=== PATIENT | male | born 1930 | race Caucasian/White ===

== ENCOUNTER → 2016-06-01 | Outpatient (CLI) | payer OTHER ==
--- NOTE | 2016-06-01 13:52 | DX ---
Chest, Two Views at 1244 hours History: Former smoker, right lower lobe pneumonia Comparison: August 2015 Findings: Cardiac silhouette is mildly enlarged. AICD pacemaker noted without pneumothorax. Interstit ial scarring noted throughout both lungs with new infiltrates identified bilateral lower lobes sugges ting bilateral lower lobe pneumonia. No pleural effusion. Impression: 1. Bilateral lower lobe pneumonia. 2. Interstitial lung disease. 3. Consider screening CT chest imaging.
== END ==
LOC: BMCIMAGING 12:47
PROVIDERS: ATTEND Internal Medicine
DX: N15.9 Renal tubulo-interstitial disease, unspecified (principal); J98.4 Other disorders of lung; Z87.891 Personal history of nicotine dependence

== ENCOUNTER → 2016-06-05 | Outpatient (CLI) | payer OTHER ==
[~2016-06-05] MED LIST: IOPAMIDOL (ISOVUE-300) 100 ML BTL IV ONE
== END ==
LOC: FIMAGING 10:18
PROVIDERS: ATTEND Internal Medicine
DX: J18.1 Lobar pneumonia, unspecified organism (principal); I70.0 Atherosclerosis of aorta
CPT/HCPCS: 71260; Q9967

== ENCOUNTER 2016-06-08 12:30 | Inpatient (IN) | payer OTHER ==
[2016-06-08] MEDS ORDERED: NS 1,000 ML BAG *FOR SEPSIS ORDER SET ONLY IV ONE (12:36)
--- NOTE | 2016-06-08 12:42 | EDPHY ---
H & P Time Seen by Provider: 06/08/16 12:30 HPI/ROS: CHIEF COMPLAINT: Pneumonia HISTORY OF PRESENT ILLNESS: Patient is an 85-year-old man sent from the [facility] by Dr. Aretha Ruiz. She had been treating it outpatient for pneumonia on day 7 of . He presented to the office today however hypoxic. On 4 L he was saturating 86% when EMS arrived. Previously had only 1 oxygen at night for history of COPD. He did have a chest x-ray last week that showed bilateral infiltrates and a CT scan done 3 days ago that showed a right lower lobe infiltrate, interstitial lung disease and emphysematous changes. He has also been treated with albuterol but not steroids. He does have a history of atrial fibrillation status post ablation and pacemaker/defibrillator placement and takes Coumadin as well. He denies any chest pain. He states that he feels weak and short of breath. He was hypotensive for EMS initially but improved with a 500 cc bolus. REVIEW OF SYSTEMS: Constitutional: denies: chills, fever, recent illness, recent injury EENTM: denies: blurred vision, double vision, nose congestion Respiratory: See HPI Cardiac: denies: chest pain, irregular heart rate, lightheadedness, palpitations Gastrointestinal/Abdominal: denies: abdominal pain, diarrhea, nausea, vomiting, blood streaked stools Genitourinary: denies: dysuria, frequency, hematuria, pain Musculoskeletal: denies: joint pain, muscle pain Skin: denies: lesions, rash, jaundice, bruising Neurological: denies: headache, numbness, paresthesia, tingling, dizziness, weakness Hematologic/Lymphatic: denies: blood clots, easy bleeding, easy bruising Immunologic/allergic: denies: HIV/AIDS, transplant EXAM: GENERAL: Well-appearing, well-nourished and in no acute distress. HEAD: Atraumatic, normocephalic. EYES: Pupils equal round and reactive to light, extraocular movements intact, sclera anicteric, conjunctiva are normal. ENT: TMs normal, nares patent, oropharynx clear without exudates. Moist mucous membranes. NECK: Normal range of motion, supple without lymphadenopathy or JVD. LUNGS: Mild right-sided rhonchi, no wheezing HEART: Regular rate and rhythm without murmurs, rubs or gallops. ABDOMEN: Soft, nontender, normoactive bowel sounds. No guarding, no rebound. No masses appreciated. BACK: No CVA tenderness, no spinal tenderness, step-offs or deformities EXTREMITIES: Normal range of motion, no pitting or edema. No clubbing or cyanosis. NEUROLOGICAL: Cranial nerves II through XII grossly intact. Normal speech, normal gait. 5/5 strength, normal movement in all extremities, normal sensation PSYCH: Normal mood, normal affect. SKIN: Warm, dry, normal turgor, no visible rashes or lesions. Source: Patient Exam Limitations: No limitations - Personal History Tetanus Vaccine Date: WITHIN 10 YRS - Medical/Surgical History Hx Asthma: No Hx Chronic Respiratory Disease: No Hx Diabetes: No Hx Cardiac Disease: Yes Hx Renal Disease: No Hx Cirrhosis: No Hx Alcoholism: No Hx HIV/AIDS: No Hx Splenectomy or Spleen Trauma: No Other PMH: afib w/ ablation, defibrillator pacemaker, COPD, cm, htn - Family History Significant Family History: Hypertension - Social History Smoking Status: Former smoker Alcohol Use: Sober Drug Use: None Constitutional: Initial Vital Signs Temperature (C) 37.2 C 06/08/16 12:45 Heart Rate 71 06/08/16 12:45 Respiratory Rate 20 06/08/16 12:45 Blood Pressure 106/60 06/08/16 12:45 O2 Sat (%) 92 06/08/16 12:45 O2 Delivery Mode Non-Rebreather Mask O2 (L/minute) 10 Allergies/Adverse Reactions: Penicillins Allergy (Verified 06/08/16 12:50) Sulfa (Sulfonamide Antibiotics) Allergy (Verified 06/08/16 12:50) HAYFEVER Allergy (Uncoded 03/04/12 15:39) RUNNY NOSE/ITCY,WATERY EYES Home Medications: Medication Instructions Recorded Chlorpheniramine Maleate [Allergy 4 mg PO HS PRN 11/27/14 4-Hour] Desonide 0.05% [Desonide 0.05% 1 amanda TP DAILY PRN 11/27/14 Cream (*)] Fluticasone Nasal [Flonase Nasal 1 sprays [place] PRN PRN 11/27/14 [place]] Furosemide [Lasix 40 MG (*)] 40 mg PO DAILY 11/27/14 Herbals/Supplements -Info Only 1 ea PO DAILY 11/27/14 Levothyroxine [Synthroid 50 mcg 50 mcg PO DAILY06 11/27/14 (*)] Multivitamins W-Minerals [Thera M 1 each PO DAILY 11/27/14 Plus Tablet (*)] [place]-3 Fatty Acids [Fish Oil 1000 1,000 mg PO BID 11/27/14 mg (*)] Pantoprazole Sodium [Protonix 40mg 40 mg PO DAILY 11/27/14 (*)] Spironolactone [Aldactone 25 MG 25 mg PO DAILY 11/27/14 (*)] Warfarin Sodium [Coumadin 2.5MG 1.25 mg PO SUMOTUTHFRSA@16 11/27/14 (*)] Warfarin Sodium [Coumadin 2.5MG 2.5 mg PO WE@16 11/27/14 (*)] Zinc Gluconate [Zinc Chelated 50mg 50 mg PO DAILY8 11/27/14 (*)] Medical Decision Making - Diagnostics Imaging: X-ray: chest x-ray was obtained. I viewed the images myself on the PACS system. My interpretation of the images is: Diffuse pulmonary infiltrates pneumonitis and emphysematous changes. The radiologist interpretation is pending. ED Course/Re-evaluation: The patient meets severe sepsis criteria. He has not improved on 7 days of Levaquin. I will give him the fluid bolus and admit to the hospital service and changed to azithromycin and ceftriaxone according to hospital protocols. He is not hospital-acquired pneumonia. He is doing slightly better on albuterol and has received Solu-Medrol. He is saturating 97% on a non- rebreather. His blood pressure is currently 124/76. 1:45 p.m. I spoke with Susana who accepted the patient for Dr. Osullivan. 2:15 p.m. after speaking with Dr. Osullivan we decided to switch to cefepime. Differential Diagnosis: Partial list of the Differential diagnosis considered include but were not limited to; sepsis, pneumonia, severe sepsis, COPD exacerbation and although unlikely based on the history and physical exam, I also considered acute coronary disease, he pulmonary edema. Critical Care Time: I spent a total of 45 minutes of critical care time in obtaining history, performing a physical exam, bedside monitoring of interventions, collecting and interpreting tests and discussion with consultants but not including time spent performing procedures [and exclusive of the PA's time]. - Data Points Laboratory Results: Laboratory Results 06/08/16 12:35 06/08/16 12:35 06/08/16 06/08/16 06/08/16 13:11 12:35 12:35 WBC RBC Hgb Hct MCV MCH MCHC RDW Plt Count MPV Neut % (Auto) Lymph % (Auto) [place] % (Auto) Eos % (Auto) Baso % (Auto) Nucleat RBC Rel Count Absolute Neuts (auto) Absolute Lymphs (auto) Absolute Monos (auto) Absolute Eos (auto) Absolute Basos (auto) Absolute Nucleated RBC Immature Gran % Immature Gran # PT INR APTT VBG Lactic Acid 3.3 mmol/L H mmol/L (0.7-2.1) Sodium 138 mEq/L mEq/L (134-144) Potassium 4.8 mEq/L mEq/L (3.5-5.2) Chloride 100 mEq/L mEq/L (97-110) Carbon Dioxide 20 mEq/l L mEq/l (22-31) Anion Gap 18 mEq/L H mEq/L (8-16) BUN 44 mg/dL H mg/dL (7-23) Creatinine 1.6 mg/dL H mg/dL (0.7-1.3) Estimated GFR 41 Glucose 147 mg/dL H mg/dL (70-100) Calcium 9.6 mg/dL mg/dL (8.5-10.4) Total Bilirubin 3.5 mg/dL H mg/dL 3.5 mg/dL H mg/dL (0.1-1.4) (0.1-1.4) Conjugated Bilirubin 1.6 mg/dL H mg/dL 1.4 mg/dL H mg/dL (0.0-0.5) (0.0-0.5) Unconjugated Bilirubin 1.9 mg/dL H mg/dL 2.1 mg/dL H mg/dL (0.0-1.1) (0.0-1.1) AST 390 IU/L H IU/L (17-59) ALT 204 IU/L H IU/L (21-72) Alkaline Phosphatase 104 IU/L IU/L (38-126) Total Protein 7.1 g/dL g/dL (6.3-8.2) Albumin 3.8 g/dL g/dL (3.5-5.0) 06/08/16 06/08/16 12:35 12:35 WBC 15.70 10^3/uL H 10^3/uL (3.80-9.50) RBC 5.00 10^6/uL 10^6/uL (4.40-6.38) Hgb 14.7 g/dL g/dL (13.7-17.5) Hct 44.5 % % (40.0-51.0) MCV 89.0 fL fL (81.5-99.8) MCH 29.4 pg pg (27.9-34.1) MCHC 33.0 g/dL g/dL (32.4-36.7) RDW 13.9 % % (11.5-15.2) Plt Count 151 10^3/uL 10^3/uL (150-400) MPV 10.3 fL fL (8.7-11.7) Neut % (Auto) 88.4 % H % (39.3-74.2) Lymph % (Auto) 3.8 % L % (15.0-45.0) [place] % (Auto) 6.8 % % (4.5-13.0) Eos % (Auto) 0.1 % L % (0.6-7.6) Baso % (Auto) 0.1 % L % (0.3-1.7) Nucleat RBC Rel Count 0.0 % % (0.0-0.2) Absolute Neuts (auto) 13.87 10^3/uL H 10^3/uL (1.70-6.50) Absolute Lymphs (auto) 0.60 10^3/uL L 10^3/uL (1.00-3.00) Absolute Monos (auto) 1.07 10^3/uL H 10^3/uL (0.30-0.80) Absolute Eos (auto) 0.02 10^3/uL L 10^3/uL (0.03-0.40) Absolute Basos (auto) 0.02 10^3/uL 10^3/uL (0.02-0.10) Absolute Nucleated RBC 0.00 10^3/uL 10^3/uL (0-0.01) Immature Gran % 0.8 % % (0.0-1.1) Immature Gran # 0.12 10^3/uL H 10^3/uL (0.00-0.10) PT 55.3 SEC H D SEC (12.0-15.0) INR 6.05 H* (0.83-1.16) APTT 54.1 SEC H SEC (23.0-38.0) VBG Lactic Acid Sodium Potassium Chloride Carbon Dioxide Anion Gap BUN Creatinine Estimated GFR Glucose Calcium Total Bilirubin Conjugated Bilirubin Unconjugated Bilirubin AST ALT Alkaline Phosphatase Total Protein Albumin Medications Given: Discontinued Medications Albuterol/Ipratropium (Duoneb) 3 ml IH EDNOW ONE Stop: 06/08/16 12:44 Last Admin: 06/08/16 13:05 Dose: 3 ml Azithromycin 500 mg/ Dextrose 255 mls @ 255 mls/hr IV DAILY SULEMAN PRN Reason: Protocol Stop: 07/08/16 13:59 Last Admin: 06/08/16 14:05 Dose: 255 mls Ceftriaxone Sodium/Dextrose (Rocephin 1 Gm (Premix)) 50 mls @ 100 mls/hr IV DAILY SULEMAN PRN Reason: Protocol Stop: 07/08/16 13:59 Last Admin: 06/08/16 17:49 Dose: Not Given Cefepime HCl 1 gm/ Dextrose 50 mls @ 100 mls/hr IV EDNOW ONE PRN Reason: Protocol Stop: 06/08/16 14:44 Last Admin: 06/08/16 17:48 Dose: Not Given Meropenem 1 gm/ Sodium (Chloride) 100 mls @ 100 mls/hr IV EDNOW ONE Stop: 06/08/16 16:59 Last Admin: 06/08/16 17:05 Dose: 100 mls Methylprednisolone Sodium Succinate (Solu-Medrol) 125 mg IVP EDNOW ONE Stop: 06/08/16 12:44 Last Admin: 06/08/16 13:10 Dose: 125 mg Sodium Chloride (Ns *For Sepsis Order Set Only*) 0 ml IV EDNOW ONE Stop: 06/08/16 12:37 Last Admin: 06/08/16 13:25 Dose: 3,060 ml Departure - Departure Disposition: Home, Routine, Self-Care Clinical Impression: Severe sepsis Pneumonia Qualifiers: Pneumonia type: due to unspecified organism Laterality: bilateral Lung location : lower lobe of lung Qualified Code(s): J18.9 - Pneumonia, unspecified organism Condition: Critical
[2016-06-08] MEDS ORDERED: IPRATROPIUM/ALBUTEROL 3 ML DEYVIAL IH ONE (12:43)
[2016-06-08] MEDS ORDERED: methylPREDNISolone SOD SUCC 125 MG/2 ML VIAL IVP ONE (12:43)
[2016-06-08 13:33] LABS: % IMMATURE GRANULYOCYTES 0.8 % (0.0-1.1); ABSOLUTE IMMATURE GRANULOCYTES 0.12 10^3/uL (0.00-0.10); ADD DIFF? NO; ADD MORPH? NO; ADD SCAN? NO; ATYPICAL LYMPHOCYTE FLAG 0 (0-99); FRAGMENT RBC FLAG 20 (0-99); HEMATOCRIT 44.5 % (40.0-51.0); HEMOGLOBIN 14.7 g/dL (13.7-17.5); LEFT SHIFT FLG 10 (0-99); LIPEMIA HEMOLYSIS FLAG 80 (0-99); MEAN CELL HEMOGLOBIN 29.4 pg (27.9-34.1); MEAN PLATELET VOLUME 10.3 fL (8.7-11.7); PLATELET CLUMPS FLAG 10 (0-99); PLATELET COUNT 151 10^3/uL (150-400); RED CELL DISTRIBUTION WIDTH 13.9 % (11.5-15.2)
[2016-06-08 13:47] LABS: APTT 54.1 SEC (23.0-38.0)
[2016-06-08 13:55] LABS: PROTIME(PATIENT) 55.3 SEC (12.0-15.0)
[2016-06-08 13:59] LABS: INR 6.05 (0.83-1.16)
[2016-06-08] MEDS ORDERED: AZITHROMYCIN IV 500 MG in D5W 250 ML IV SCH (14:00)
[2016-06-08 14:01] LABS: ANION GAP 18 mEq/L (8-16); BILIRUBIN,TOTAL 3.5 mg/dL (0.1-1.4); CALCIUM 9.6 mg/dL (8.5-10.4); CARBON DIOXIDE 20 mEq/l (22-31); CHLORIDE 100 mEq/L (97-110); CREATININE 1.6 mg/dL (0.7-1.3); GLOMERULAR FILTRATION RATE 41; GLUCOSE 147 mg/dL (70-100); POTASSIUM 4.8 mEq/L (3.5-5.2); SODIUM 138 mEq/L (134-144)
[2016-06-08] MEDS ORDERED: CEFEPIME HCL 1 GM in D5W 50 ML IV ONE (14:15)
[2016-06-08 14:24] LABS: LACGHOST ORDER
[2016-06-08] MEDS ORDERED: ONDANSETRON DISINTEGRATING 4 MG TAB PO PRN (14:41)
[2016-06-08] MEDS ORDERED: ONDANSETRON 4 MG/2 ML VIAL IVP PRN (14:41)
[2016-06-08] MEDS ORDERED: TEMAZEPAM 15 MG CAP PO PRN (14:41)
[2016-06-08] MEDS ORDERED: ACETAMINOPHEN 325 MG TAB PO PRN (14:41)
[2016-06-08] MEDS ORDERED: oxyCODONE IR 5 MG TAB PO PRN (14:41)
[2016-06-08 14:46] LABS: BILIRUBIN-CONJUGATED 1.4 mg/dL (0.0-0.5); BILIRUBIN-UNCONJUGATED 2.1 mg/dL (0.0-1.1)
[2016-06-08] MEDS ORDERED: FLUTICASONE NASAL 120 SPRAYS/16 GM MDI EACHNARE PRN (15:15)
[2016-06-08] MEDS ORDERED: DESONIDE 0.05% 15 GM CREAM TP PRN (15:15)
[2016-06-08] MEDS ORDERED: CHLORPHENIRAMINE MALEATE 4 MG TAB PO PRN (15:15)
[2016-06-08 15:52] LABS: ALBUMIN 3.8 g/dL (3.5-5.0); BILIRUBIN,TOTAL 3.5 mg/dL (0.1-1.4); BILIRUBIN-CONJUGATED 1.6 mg/dL (0.0-0.5); BILIRUBIN-UNCONJUGATED 1.9 mg/dL (0.0-1.1); TOTAL PROTEIN 7.1 g/dL (6.3-8.2)
[2016-06-08] MEDS ORDERED: MEROPENEM 1 GM in NS 100 ML IV ONE (16:00)
--- NOTE | 2016-06-08 17:21 | GHP ---
[f rep st] HISTORY AND PHYSICAL DATE OF ADMISSION: 06/08/2016 CHIEF COMPLAINT: Pneumonia. HISTORY OF PRESENT ILLNESS: This is an 85-year-old man who presents having failed Levaquin for outpatient treatment of pneumonia. Symptoms started about 2 weeks ago. He saw his doctor, Dr. Ruiz, about 1 week ago. She ordered an x-ray as well as a CT scan and started him on Levaquin. He started Levaquin 3 days ago, not steroids, and has not felt any better. He has possibly had some subjective fevers at home. He has been coughing productive of mucus with mild blood tinge to it. He has been taking his warfarin as prescribed. He has a history of nonischemic cardiomyopathy with an EF of 40%. He has a history of COPD. He saw Dr. Sneed years ago, but has not needed to see him since. He has never been told that he has interstitial lung disease. He quit smoking in the 70s. He normally uses 2.5 L of oxygen at night. However, he has been going up to 4 or 5 throughout the day with this most recent illness. PAST MEDICAL/SURGICAL HISTORY: 1. COPD. 2. Atrial fibrillation status post ablation. 3. Nonischemic cardiomyopathy. Last EF 40% status post bi-V ICD. 4. Hypertension. 5. Hyperlipidemia. 6. BPH. MEDICATIONS: Please see medication reconciliation. ALLERGIES: Penicillin and sulfa. FAMILY HISTORY: No lung disease in his family. SOCIAL HISTORY: He lives at home with his . He has 1 beer with lunch every day and 1 cocktail. He tells me that he does not get intoxicated. He quit smoking in the . REVIEW OF SYSTEMS: A 10-point review of systems is conducted and is negative, except per HPI. PHYSICAL EXAM: VITAL SIGNS: Blood pressure is 120/72, heart rate 72, respiration rate 20, saturating 98% on 10 L non-rebreather, temperature 37.2. GENERAL: The patient is a pleasant man who appears in respiratory distress, otherwise comfortable. HEENT: Shows him to be normocephalic, atraumatic. He is wearing a non-rebreather. CARDIOVASCULAR: Shows a regular rate and rhythm. He has a 1/6 systolic murmur. PULMONARY: Shows bilateral rhonchi as well as basilar rales. He is in moderate respiratory distress, tachypneic. He is speaking in almost full sentences, however. ABDOMEN: Soft, nontender, nondistended. SKIN: No rash. : No [place]. NEUROLOGIC: Shows him to be alert and oriented x3. He is moving all extremities. PSYCHIATRIC: Shows normal mood and affect. LABS: White count is 15.7. INR is 6.05. Lactate is 3.3. Bilirubin is 3.5. Creatinine is 1.6, BUN is 44, bicarb is 20. IMAGING: Chest x-ray, which I personally reviewed and interpreted, shows bilateral infiltrates mostly in the right base, right upper lobe, as well as left base. He has a biventricular ICD in place. I reviewed his CT scan from 3 days ago. This showed likely interstitial lung disease with superimposed pneumonia. I discussed this with Dr. Rausch. Will admit to the step-down unit. IMPRESSION AND PLAN: This is an 85-year-old man who presents with suspected acute pneumonia on top of underlying lung disease. 1. Pulmonary: I do suspect that he has an acute pneumonia given his white count and significantly worsening symptoms. He has a very concerning CT scan for underlying interstitial lung disease. The etiology of this is unclear. He also has COPD, which has been known for some years. In terms of diagnosis, blood cultures have been ordered. Sputum culture will be sent. I sent in respiratory viral PCR as well as a Legionella antigen. I think it is appropriate to treat him broadly to begin with with meropenem (he has an allergy to penicillin), vancomycin, and doxycycline. Would have low threshold to involve pulmonology. 2. Severe sepsis. He has received appropriate fluid bolus. His lactate is elevated. Will need to repeat this per the sepsis protocol. Will monitor him in the step-down unit. Watch for volume overload given his low ejection fraction. 3. Coagulopathy. He is on warfarin. I suspect this is due to interaction with Levaquin, which he has been on for 3 days. Will hold warfarin for now and monitor this closely. 4. Acute kidney injury. Baseline creatinine is about 1.0. His is 1.6. Will hydrate him as above and follow this closely. 5. Nonischemic cardiomyopathy with EF of about 40%. Will continue his cardiac medications. He has a bi-V ICD in place. He is followed by Dr. Hendricks. 6. Atrial fibrillation status post ablation. He is anticoagulated, as above. 7. Underlying chronic obstructive pulmonary disease. He will receive nebulizer treatments while he is here. 8. Code status: He tells me that he would like to be intubated and would like to be a full code at this point. Nobody has had this discussion with him before. /[id number]/MODL MTDD
[2016-06-08] MEDS ORDERED: VANCOMYCIN HCL/NORMAL SALINE 250 ML IV SCH (18:00)
[2016-06-08] MEDS: methylPREDNISolone SOD SUCC 125 MG/2 ML VIAL IVP SCH (18:07)
[2016-06-08] MEDS: IPRATROPIUM/ALBUTEROL 3 ML DEYVIAL IH SCH ×2 (19:08→20:32)
[2016-06-08] MEDS: DOXYCYCLINE INJ 100 MG in NS 250 ML IV SCH (20:07)
[2016-06-08] MEDS: OMEGA-3 FATTY ACIDS 1,000 MG CAP PO SCH (20:07)
[2016-06-08] MEDS: ZINC GLUCONATE 50 MG TAB PO SCH (20:45)
[2016-06-08 20:54] LABS: COLOR AMBER; LEUKOCYTE ESTERASE,URINE NEGATIVE (NEGATIVE); NITRITE,URINE NEGATIVE (NEGATIVE)
[2016-06-08 21:05] LABS: HYALINE CASTS 25-50 /lpf (0-1); MUCUS TRACE /lpf (NONE-1+)
[2016-06-08] MEDS: MEROPENEM 1 GM in NS 100 ML IV SCH (22:03)
[2016-06-09] MEDS: methylPREDNISolone SOD SUCC 125 MG/2 ML VIAL IVP SCH ×5 (00:05→23:57)
[2016-06-09] MEDS: IPRATROPIUM/ALBUTEROL 3 ML DEYVIAL IH SCH ×2 (04:22→10:33)
[2016-06-09 04:36] LABS: % IMMATURE GRANULYOCYTES 0.4 % (0.0-1.1); ABSOLUTE IMMATURE GRANULOCYTES 0.07 10^3/uL (0.00-0.10); ADD DIFF? NO; ADD MORPH? NO; ADD SCAN? NO; ATYPICAL LYMPHOCYTE FLAG 0 (0-99); FRAGMENT RBC FLAG 0 (0-99); HEMATOCRIT 40.3 % (40.0-51.0); HEMOGLOBIN 13.4 g/dL (13.7-17.5); LEFT SHIFT FLG 0 (0-99); LIPEMIA HEMOLYSIS FLAG 80 (0-99); MEAN CELL HEMOGLOBIN 29.1 pg (27.9-34.1); MEAN CELL HEMOGLOBIN CONCENTR. 33.3 g/dL (32.4-36.7); MEAN CELL VOLUME 87.6 fL (81.5-99.8); MEAN PLATELET VOLUME 10.8 fL (8.7-11.7); PLATELET CLUMPS FLAG 0 (0-99); PLATELET COUNT 111 10^3/uL (150-400); RED CELL DISTRIBUTION WIDTH 13.9 % (11.5-15.2)
[2016-06-09 04:48] LABS: INR 4.89 (0.83-1.16); PROTIME(PATIENT) 46.6 SEC (12.0-15.0)
[2016-06-09 04:54] LABS: ALANINE AMINOTRANSFERASE 176 IU/L (21-72); ALBUMIN 3.4 g/dL (3.5-5.0); ALKALINE PHOSPHATASE 100 IU/L (38-126); ANION GAP 13 mEq/L (8-16); ASPARTATE AMINOTRANSFERASE 255 IU/L (17-59); BILIRUBIN,TOTAL 2.3 mg/dL (0.1-1.4); CALCIUM 8.8 mg/dL (8.5-10.4); CARBON DIOXIDE 20 mEq/l (22-31); CHLORIDE 108 mEq/L (97-110); GLOMERULAR FILTRATION RATE > 60; GLUCOSE 181 mg/dL (70-100); SODIUM 141 mEq/L (134-144); TOTAL PROTEIN 6.6 g/dL (6.3-8.2)
[2016-06-09] MEDS: LEVOTHYROXINE 50 MCG TAB PO SCH (05:44)
[2016-06-09] MEDS: MEROPENEM 1 GM in NS 100 ML IV SCH ×3 (05:44→22:42)
[2016-06-09] MEDS: MULTIVITAMINS W-MINERALS 1 EACH TAB PO SCH (08:55)
[2016-06-09] MEDS: ZINC GLUCONATE 50 MG TAB PO SCH (08:55)
[2016-06-09] MEDS: DOXYCYCLINE INJ 100 MG in NS 250 ML IV SCH ×2 (08:55→20:25)
[2016-06-09] MEDS: PANTOPRAZOLE SODIUM 40 MG TAB PO SCH (08:55)
[2016-06-09] MEDS: OMEGA-3 FATTY ACIDS 1,000 MG CAP PO SCH ×2 (09:02→20:25)
[2016-06-09] MEDS: VANCOMYCIN HCL/NORMAL SALINE 250 ML IV SCH ×2 (10:28→22:37)
--- NOTE | 2016-06-09 13:31 | HOSPPROG ---
Hospitalist Progress Note Assessment/Plan: * acute hypoxic respiratory failure * due to COPD exacerbation, pneumonia and pneumonitis * continue watching ICU * community-acquired pneumonia * failed outpatient Levaquin although I am not sure this was an antibiotic failure versus worsening COPD * will consider deescalate antibiotics. will discuss will pulmonology * possible viral pneumonitis * COPD exacerbation * continue steroids. Could probably decrease dose * atrial fibrillation status post ablation * INR supratherapeutic, hold Coumadin * sepsis * resolving * nonischemic cardiomyopathy with EF of 40%, status post Bi V ICD * hypertension * hyperlipidemia Subjective: Feels a little bit better. Had a tough night though Objective: Vital Signs Temp Pulse Resp BP Pulse Ox 36.6 C 88 26 H 135/87 H 88 L 06/09/16 11:57 06/09/16 11:57 06/09/16 11:57 06/09/16 11:57 06/09/16 11:57 Laboratory Results 06/09/16 04:20 06/09/16 04:20 06/08/16 06/09/16 06/10/16 05:59 05:59 05:59 Intake Total 2492 Output Total 465 Balance 2026 PT 46.6 SEC (12.0-15.0) H D 06/09/16 04:20 INR 4.89 (0.83-1.16) H 06/09/16 04:20 - Physical Exam Constitutional: no apparent distress, appears nourished, not in pain Eyes: anicteric sclera, EOMI Ears, Nose, Mouth, Throat: moist mucous membranes, hearing normal Cardiovascular: regular rate and rhythym, no murmur, rub, or gallop Respiratory: no respiratory distress, other ( fairly clear, decent air movement slight wheezing and rhonchi) Gastrointestinal: normoactive bowel sounds, soft, non-tender abdomen, no palpable masses Skin: warm Neurologic: AAOx3 Psychiatric: interacting appropriately, not anxious, not encephalopathic, thought process linear ICD10 Worksheet Patient Problems: Problems Problem Status Onset Pneumonia Acute Severe sepsis Acute Hyperplasia of prostate Active Atrial fibrillation or flutter Acute
[2016-06-09] MEDS ORDERED: LACTULOSE 20 GM/30 ML UDCUP PO PRN (14:03)
[2016-06-09] MEDS ORDERED: POLYETHYLENE GLYCOL 3350 17 GM PKT PO PRN (14:03)
[2016-06-09] MEDS ORDERED: BISACODYL 10 MG SUPP PR PRN (14:03)
[2016-06-09] MEDS ORDERED: CANN-EASE 2 GM TUBE TP PRN (14:03)
[2016-06-09] MEDS ORDERED: MAGNESIUM HYDROXIDE 30 ML UDCUP PO PRN (14:03)
--- NOTE | 2016-06-09 14:48 | GCON ---
[f rep st] CONSULTATION PULMONARY CONSULT. DATE OF CONSULTATION: 06/09/2016 HISTORY OF PRESENT ILLNESS: The patient is an 85-year-old male with a complicated medical history i nvolving cardiomyopathy with an ejection fraction of 45%, chronic atrial fibrillation, status post a blation and ICD placement with pacemaker dependency. He was admitted yesterday with severe pneumoni a and hypoxemia in the setting of presumed COPD. He had seen Dr. Sneed in the past many years ago but has not seen him in a long time and is not currently using any inhalers. He developed upper res piratory infection symptoms about 3 weeks ago, waited a few days to seek medical attention. Opal johnson got a chest x-ray and was started on outpatient antibiotics, I believe which was Levaquin. Decker erika, he continued to feel poorly, with increasing shortness of breath, and was found to be hypoxic i n the emergency department. A chest CT scan taken prior to his arrival showed diffuse infiltrates, primarily in the lower lobes, with a ground-glass appearance and an area of focal consolidation in t he right lower lobe. There are also suggestions of chronic interstitial lung disease and some tract ion bronchiectasis. The patient, however, states that just a few months ago he felt at his baseline , was really quite stable, and denied any chronic cough or excessive exertional dyspnea, and was not aware of any previous diagnosis of interstitial lung disease. In either case, he was treated with aggressive antibiotics and oxygen. He was on a non-rebreather overnight, and though he did improve and felt better by today, he still easily desaturated. REVIEW OF SYSTEMS: Otherwise negative. PAST MEDICAL HISTORY: Includes: 1. Chronic atrial fibrillation. 2. Sick sinus syndrome, status post ICD placement. 3. Cardiomyopathy with an ejection fraction of 45% on an echo on 11/28/2014. 4. COPD, but he has no pulmonary function tests on record. 5. NSVT has occurred in the past. 6. Hyperlipidemia. 7. Pulmonary hypertension. His estimated systolic PA pressure was 47, with a normal right ventricu lar size and function, but mild to moderately dilated right atrium again in November 2014. 8. BPH. 9. Nocturnal oxygen, which he has been using for many years. 10. Elevated right diaphragm as noted on the CT scan. 11. Chronic anticoagulation. 12. Hypothyroidism. 13. Gastroesophageal reflux disease. PAST SURGICAL HISTORY: Includes hernia repair, rotator cuff repair, defibrillator placement, and ab lations in the past. SOCIAL HISTORY: He is a remote smoker, quit in the 1970s. Does drink some alcohol; quantity is not clear. FAMILY HISTORY: Noncontributory at this time. CURRENT MEDICATIONS: Include Tylenol, DuoNeb, Dulcolax, doxycycline, Flonase, lactulose p.r.n., Syn throid, meropenem, Solu-Medrol 125 q.6 hours, multivitamins, fish oil, Zofran, oxycodone, Protonix, MiraLAX, Senokot, Restoril, vancomycin. EXAM: VITAL SIGNS: He was afebrile. Blood pressure 135/87, heart rate of 88, respirations 25. Ox ygen saturation was 92% on 10 L by non-rebreather. GENERAL: He was awake, alert and oriented x3, i n no apparent distress and able to speak in mostly full sentences through his non-rebreather. HEENT : Pupils are equally round, reactive to light. Nonicteric and noninjected. Mucous membranes are m oist, without erythema or exudate. NECK: Supple, without adenopathy or jugular vein distention. L UNGS: Breath sounds were distant but clear to auscultation, without wheezing. HEART: Regular rate and rhythm, without obvious murmur. ABDOMEN: Soft, nontender, nondistended, without hepatosplenom egaly. EXTREMITIES: No clubbing, cyanosis, or edema. NEUROLOGICAL: Exam was nonfocal, including cranial nerves and deep tendon reflexes. Objective data includes a CT scan as reported above. LABORATORY DATA: White count was 15.7 yesterday and 15.98 today. Hematocrit of 40, platelets of 11 1. INR was 6.05 yesterday, down to 4.89 today. Sodium was 141, potassium 4.0, chloride 108, bicarb 20, BUN 45, creatinine 1.0, down from 1.6 yesterday. Glucose 181, total bilirubin 2.3. Alkaline p hosphatase of 100, AST 255, ALT 176. Those are all improved. Cultures are negative to date. ASSESSMENT/PLAN: 1. Community-acquired pneumonia. He is currently getting aggressive antibiotics, including doxycyc line, vancomycin, and meropenem. With cultures negative at this point, he can probably discontinue the vancomycin and consider stopping the doxycycline. He started Levaquin as an outpatient and only had a couple of days of this, so it is uncertain if that is really an antibiotic failure. In eithe r case, from a pneumonia perspective, he seems to be relatively stable and has other abnormalities l ikely related to hypoxemia. 2. Abnormal CT scan. The question is whether he has interstitial lung disease or not. The fact th at he was without suggestive symptoms just a month or so ago argues against an interstitial lung dis ease, such as NSIP or DIP as suggested by the radiologist. If this is all an acute infection, which I believe it is, his CT scan ought to normalize within the next 4-6 weeks. Will look at a high-res olution CT scan at that time to make certain that that is indeed the case. 3. Chronic obstructive pulmonary disease. This is part of his history, though no pulmonary functio n tests are available to me at this time. I would strongly suggest that he start on a maintenance t herapy, such as Spiriva, which we started today. Change his DuoNeb to albuterol. In addition, we c an probably drop the Solu-Medrol from 125 to 60 mg a day. Even if he has an ILD, this is still a pl enty high dose, and he seems to be much better. Of course, he should continue with the oxygen that he is getting to maintain a sat of 90% to 94%. 4. Elevated INR, which is likely due to his ongoing antibiotics. This has been held. It is improv ing. I do not feel that further aggressive intervention is required at this time. 5. Acute kidney injury. This is also resolved with IV fluids. 6. Transaminitis. This is likely related to his ongoing hypoxemia and is also starting to show sig ns of resolution. I do not think there is an active hepatitis. 7. Pulmonary hypertension by echo criteria. I think this is more than likely related to his underl matias cardiac disease. Certainly, his COPD is as well a contributor to this problem but is not likel y due to pulmonary arterial hypertension. He is not a candidate for PAH specific therapies, and we should maintain his oxygenation as much as we can. 8. Nocturnal hypoxemia, which he has been using as an outpatient. It is possible that he has under lying sleep apnea, and we can readdress this at an outpatient visit. A total of about 60 minutes of critical care time was required to evaluate this patient. /[id number]/MODL
[2016-06-09] MEDS: SENNOSIDES/DOCUSATE SODIUM TAB PO SCH (20:24)
[2016-06-09] MEDS: ALBUTEROL 3 ML DEYVIAL IH PRN (22:25)
[2016-06-10 02:14] LABS: BASE EXCESS -3.9 mEq/L (-2.5-2.5); BICARBONATE 18 mEq/L (22-26); MEASURED OXYGEN SATURATION 92 % (92-95); PCO2 27 mmHg (34-38); PO2 66 mmHg (65-75); TCO2 19 mEq/L (23-27)
[2016-06-10 02:15] LABS: O2 CONCENTRATIION 92 % (0-100); P/F RATIO 72 RATIO
[2016-06-10] MEDS: ALBUTEROL 3 ML DEYVIAL IH PRN (02:49)
[2016-06-10] MEDS ORDERED: LORazepam 2 MG/ML INJ ONE (03:28)
[2016-06-10] MEDS ORDERED: LORazepam 0.5 MG TAB PO ONE (03:30)
--- NOTE | 2016-06-10 03:44 | HOSPPROG ---
Hospitalist Progress Note Assessment/Plan: 85 y/o male with history of CHF with acute hypoxic respiratory failure secondary to COPD exacerbation, pneumonia, and pneumonitis called to bedside to evaluate the patient with agitation and worsening o2 sats. pt started on Bipap, but continues to very uncomfortable. -stat cxr ordered and shows diffuse bilat infiltrates -will try 1mg of iv morphine -lasix 20mg iv x 1 -repeat abg and consider intubation if not improving will transfer to icu status chart was reviewed 30 minutes of critical care time were spent in the care of this patient Objective: Vital Signs Temp Pulse Resp BP Pulse Ox 36.5 C 94 44 H 109/87 H 91 L 06/10/16 03:36 06/10/16 03:36 06/10/16 03:36 06/10/16 03:36 06/10/16 03:36 Microbiology 06/09/16 09:15 - Final Sputum, Expectorated Laboratory Results 06/09/16 04:20 06/09/16 04:20 06/08/16 06/09/16 06/10/16 05:59 05:59 05:59 Intake Total 2492 50 Output Total 465 400 Balance 2026 -350 PT 46.6 SEC (12.0-15.0) H D 06/09/16 04:20 INR 4.89 (0.83-1.16) H 06/09/16 04:20 Laboratory Tests 06/10/16 02:08 pCO2 27 L pO2 66 Total CO2 19 L ABG pH 7.45 ABG PO2/FiO2 Ratio 72 ABG O2 Saturation 92 ABG Base Excess -3.9 L Total O2 Concentration 8.0 - Physical Exam Constitutional: chronically ill appearing, uncomfortable Respiratory: reduced air movement, inspiratory crackles, respiratory distress, rhonchi ICD10 Worksheet Patient Problems: Problems Problem Status Onset Pneumonia Acute Severe sepsis Acute Hyperplasia of prostate Active Atrial fibrillation or flutter Acute
[2016-06-10] MEDS ORDERED: FUROSEMIDE 20 MG/2 ML VIAL IVP ONE (03:46)
[2016-06-10] MEDS ORDERED: FUROSEMIDE 20 MG/2 ML VIAL ONE (03:47)
[2016-06-10] MEDS ORDERED: LORazepam 2 MG/ML INJ IV ONE (04:00)
[2016-06-10 04:48] LABS: HEMATOCRIT 40.4 % (40.0-51.0); HEMOGLOBIN 13.3 g/dL (13.7-17.5); MEAN CELL HEMOGLOBIN 28.7 pg (27.9-34.1); MEAN CELL HEMOGLOBIN CONCENTR. 32.9 g/dL (32.4-36.7); MEAN CELL VOLUME 87.3 fL (81.5-99.8); RED BLOOD CELL COUNT 4.63 10^6/uL (4.40-6.38)
[2016-06-10 04:59] LABS: ANION GAP 15 mEq/L (8-16); CALCIUM 9.2 mg/dL (8.5-10.4); CARBON DIOXIDE 16 mEq/l (22-31); CHLORIDE 109 mEq/L (97-110); CREATININE 1.3 mg/dL (0.7-1.3); GLOMERULAR FILTRATION RATE 53; GLUCOSE 253 mg/dL (70-100); MAGNESIUM 2.7 mg/dL (1.6-2.3); POTASSIUM 4.4 mEq/L (3.5-5.2); SODIUM 140 mEq/L (134-144)
[2016-06-10 05:03] LABS: BASE EXCESS -9.1 mEq/L (-2.5-2.5); BICARBONATE 15 mEq/L (22-26); MEASURED OXYGEN SATURATION 78 % (92-95); PCO2 27 mmHg (34-38); PO2 47 mmHg (65-75); TCO2 16 mEq/L (23-27)
[2016-06-10 05:04] LABS: BIPAP YES
[2016-06-10 05:05] LABS: EXP PRESSURE 8; INSP PRESSURE 20; O2 CONCENTRATIION 100 % (0-100); P/F RATIO 47 RATIO
[2016-06-10] MEDS ORDERED: MIDAZOLAM 2 MG/2 ML VIAL IVP PRN (05:20)
[2016-06-10] MEDS ORDERED: SUCCINYLCHOLINE CHLORIDE*ANESTHESIA ONLY*200 MG/10 ML SYR IVP ONE (05:30)
[2016-06-10] MEDS ORDERED: ETOMIDATE 40 MG/20 ML INJ IV ONE (05:30)
--- NOTE | 2016-06-10 05:39 | EDPHY ---
Inpatient Procedure Narrative: 0520: I was asked to come to the floor to evaluate this patient in respiratory failure on BiPAP. Spoke with Dr. Borrego who requested that I come to the ICU and intubate patient. Reason for intubation is respiratory failure failing BiPAP. Hypoxia. Upon arrival to the ICU the patient is in respiratory distress, on BiPAP he appears confused. IT is noted his BiPAP saturation was 84% he was tachypneic in the 40s. In tachycardic in the 120s. Patient was emergently intubated by myself under RSI medications he received 20 mg of IV etomidate 100 mg of IV succinylcholine. [place] scope was used for direct visualization of the cords. A 7.5 ETT was passed through the cords this was confirmed with bilateral breath sounds as well as color change on the capnography for an humidified air in the endotracheal tube. An x-ray was shot to confirm tube placement. ED x-ray: Chest one view: shows significant bilateral pulmonary infiltrates an endotracheal tube that is right at the josseline almost right main stemmed. It has been ordered to be removed 2 cm. The patient tolerated this procedure very well. Critical Care: Total Critical Care Time Spent Managing this Patient: 20 Minutes. This time was spent Exclusively with this patient. This Care was exclusive of procedures. The Organ System/life at risk was respiratory failure, pulmonary This Patient was in Critical Condition because respiratory failure
[2016-06-10] MEDS ORDERED: PHYTONADIONE 5 MG in NS 50 ML IV ONE ×2 (06:00→15:40)
[2016-06-10] MEDS: methylPREDNISolone SOD SUCC 125 MG/2 ML VIAL IVP SCH ×4 (06:33→23:16)
[2016-06-10] MEDS: MEROPENEM 1 GM in NS 100 ML IV SCH ×3 (06:33→21:19)
[2016-06-10 06:43] LABS: PROTIME(PATIENT) 100.7 SEC (12.0-15.0)
[2016-06-10 06:44] LABS: INR 12.8 (0.83-1.16)
[2016-06-10] MEDS: LEVOTHYROXINE 50 MCG TAB PO SCH (06:44)
[2016-06-10] MEDS: PROPOFOL/EMULSION 100 ML IV SCH ×4 (06:45→23:56)
[2016-06-10] MEDS: fentaNYL/NACL 100 ML IV SCH ×3 (06:47→23:56)
[2016-06-10 06:54] LABS: APTT 51.9 SEC (23.0-38.0)
[2016-06-10] MEDS ORDERED: NS 500 ML IV ONE (07:00)
[2016-06-10] MEDS ORDERED: ALTEPLASE 2 MG VIAL IVP PRN ×2 (07:16→14:19)
[2016-06-10 07:18] LABS: ALANINE AMINOTRANSFERASE 160 IU/L (21-72); ALBUMIN 3.6 g/dL (3.5-5.0); ALKALINE PHOSPHATASE 152 IU/L (38-126); ASPARTATE AMINOTRANSFERASE 197 IU/L (17-59); BILIRUBIN,TOTAL 5.2 mg/dL (0.1-1.4); BILIRUBIN-CONJUGATED 1.8 mg/dL (0.0-0.5); BILIRUBIN-UNCONJUGATED 3.4 mg/dL (0.0-1.1); TOTAL PROTEIN 6.7 g/dL (6.3-8.2)
[2016-06-10 08:06] LABS: BASE EXCESS -7.3 mEq/L (-2.5-2.5); BICARBONATE 17 mEq/L (22-26); MEASURED OXYGEN SATURATION 90 % (92-95); PCO2 34 mmHg (34-38); PO2 67 mmHg (65-75); TCO2 18 mEq/L (23-27)
[2016-06-10 08:08] LABS: END TIDAL CO2 20; O2 CONCENTRATIION 100 % (0-100); P/F RATIO 67 RATIO; TOTAL RATE 18
[2016-06-10] MEDS ORDERED: TIOTROPIUM INHALER 18 MCG/DOSE 5 DOSE/MDI IH SCH (09:00)
[2016-06-10] MEDS: DOXYCYCLINE INJ 100 MG in NS 250 ML IV SCH ×2 (09:07→20:31)
[2016-06-10] MEDS: VANCOMYCIN HCL/NORMAL SALINE 250 ML IV SCH (09:10)
[2016-06-10 09:35] LABS: MIXED VENOUS O2 SATURATION 99 % (65-75)
[2016-06-10] MEDS: ALBUTEROL 60 PUFFS/8 GM MDI IH SCH ×4 (09:41→19:40)
[2016-06-10] MEDS: IPRATROPIUM HFA INHALER IH SCH ×4 (09:42→19:40)
--- NOTE | 2016-06-10 09:42 | PDINTPN ---
[employer] Progress Note Assessment/Plan: Assessment/plan: 85 M with hx COPD, CHF with EF 45, chronic afib, and pacer; admitted 06/08/16 with SOB and PNA after failing outpatient Abx. CT ruled out PE, but showed significant bilateral infiltrates suggestive of ILD. Rx'd with meropenem, doxy, and vanco; and appeared stable AM 06/09/16 on SM. He deteriorated overnight and required intubation early AM 06/10. His INR was found to be 12.8 and was given vitamin K and FFP. His BP was low post-intubation, but responded to blood products and fluid challenge. CXR was much worse diffuse infiltrates. * Respiratory failure with hypoxia- 2/2 PNA which may have been progressing on current abx. His vent is set at 100% and 10 peep with a pO2 of 67 and sat of 90 , so peep raised ad watching BP. Thin bloody secretions after difficult ETT, but PAP around 20. DDx includes PNA, COPD, CHF, DAH. * COPD- 2/2 above. Continue solumedrol and change albuterol to duoneb since cant get spiriva on vent. Abx include doxy and wagner; vanco to be dc'd with ID guidance. * ILD- seems less likely since patient reportsa feeling baseline in last 2-3 months. Family reports slow decline over same period. Not stable for biopsy at this time and short term rx would be steroids regardless. Re-eval after recovery * afib- currently 100% paced * chf?- could easily be factor. Unable to pass lockett today and minimal response to lasix. Check BNP and echo today. * lockett- Rn attempted several times including Coude- reports possible stricture in urethra. Urology consulted. * inr- DIC versus abx/warfarin effect. Rx'd with vitamin K and FFP given significant oozing. Recheck pending. * LFT- mildly elevated but falling. * platelet/dic- falling platelets c/w DIC. Continue support and fu labs this afternoon * critical care time 65 minutes from [id number] Subjective: Case reviewed with staff pharmacist, hospitalist- Worsening hypoxemia overnight with escalating O2 requirements. Failed vapotherm, NRB, bipap. Difficult intubation early this AM in setting of increasing INR Objective: Vital Signs Temp Pulse Resp BP Pulse Ox 37.0 C 71 23 H 92/54 L 89 L 02/22/17 07:00 06/10/16 08:04 06/10/16 08:04 06/10/16 07:00 06/10/16 08:04 Microbiology 06/09/16 09:15 - Final Sputum, Expectorated Laboratory Results 06/10/16 04:30 06/10/16 04:30 06/09/16 06/10/16 06/11/16 05:59 05:59 05:59 Intake Total 2492 205 Output Total 465 401 Balance 2026 PT 100.7 SEC (12.0-15.0) H D 06/10/16 04:30 INR 12.80 (0.83-1.16) H* 06/10/16 04:30 Physical Exam - Physical Exam General Appearance: other (sedated on vent) EENT: PERRL/EOMI, ET tube Neck: full range of motion, supple Respiratory: lungs clear, decreased breath sounds (bilaterally), No wheezing Cardiac/Chest: regular rate, rhythm, No edema Abdomen: non-tender, soft, No distended Skin: normal color, warm/dry, No cyanosis Lymphatic: no adenopathy Extremities: normal capillary refill, No pedal edema Neuro/Psych: other (sedated on vent) ICD10 Worksheet Patient Problems: Problems Problem Status Onset Pneumonia Acute Severe sepsis Acute Hyperplasia of prostate Active Atrial fibrillation or flutter Acute
--- NOTE | 2016-06-10 10:06 | GCON ---
[f rep st] CONSULTATION INFECTIOUS DISEASE CONSULTATION. DATE OF CONSULTATION: 06/10/2016 REASON FOR CONSULTATION: Respiratory failure, query infectious etiology. HISTORY OF PRESENT ILLNESS: An 85-year-old male with a past medical history of COPD, cardiomyopathy with atrial fibrillation, with history of ablation and AICD in place, whose family reports a progressive failure to thrive over the last several months. They report he has been coughing and significantly less active. Patient presented to his doctor about 1 week prior to admission. Chest x-ray and CT scan were ordered and patient was started on levofloxacin. Apparently, he did not feel significantly improved; therefore, he presented to the emergency room. He was admitted to the hospital and started on meropenem, vancomycin and doxycycline, as well as steroids. The patient was monitored in the ICU and had progressive increasing oxygen requirements requiring intubation yesterday. Microbiologic data is still pending including blood cultures from admission, today, 06/10/2016, and sputum culture. In addition, serology for urine Legionella antigen and respiratory viral panel are also pending. The patient remains on 100% O2 on the ventilator. He has been afebrile throughout his hospital course. Patient did report subjective fevers prior to hospitalization. Chest x-ray was personally reviewed by me as well as CT scan performed prior to hospitalization. Chest x-ray today shows diffuse alveolar infiltrates., somewhat sparing of the upper apices; AICD was in place; ET tube was in place. Chest CT from the showed a somewhat different pattern with focal consolidation of the right lower lobe and some ground-glass attenuation in the upper lobes, somewhat honeycomb appearance to the infiltrates. PAST MEDICAL HISTORY: 1. COPD. 2. Atrial fibrillation, status post ablation. 3. Nonischemic cardiomyopathy with an EF of 40%, has BiV ICD in place. 4. Hypertension. 5. Hyperlipidemia. 6. BPH. MEDICATIONS: Meropenem 1 g IV q.8, started 06/10/2016; doxycycline 100 mg IV twice daily, started 06/08; Tylenol; Proventil; fentanyl for sedation; Synthroid ; Versed; fish oil; Zofran; MiraLAX; propofol; Restoril; Spiriva; vancomycin 1 g IV q.12. ALLERGIES: In the chart it reports a penicillin allergy. Patient's says this is not accurate and he is not allergic to penicillin. He has an unknown reaction to sulfa very remotely. SOCIAL HISTORY: The patient has been retired since 1991. He has 3 children. He is . He drinks 1 beer with lunch and a cocktail in the evening. He quit tobacco in the . He was born in [place], [place]. No recent international travel. They do have a whole house humidifier. No sick contacts. REVIEW OF SYSTEMS: A complete 10-point review of systems was performed and negative except as mentioned in the HPI with assistance of prior records and his family at bedside. FAMILY HISTORY: Reviewed and noncontributory. PHYSICAL EXAM: VITAL SIGNS: Blood pressure 92/54, heart rate 71, respiratory rate 23, saturation 89% to 93% on 100% FiO2 on the ventilator. GENERAL: This is sedated male with ET tube and OG tube in place, with obvious blood in both tubes. NECK: Supple. No lymphadenopathy. CARDIOVASCULAR: Regular. No murmurs were detected. CHEST: Patient had scattered wheezes throughout the anterior exam. ABDOMEN: Soft, nontender, obese. Bowel sounds are present. EXTREMITIES: He had 1+ edema. Pulses were not palpable but his feet were warm with no slightly decreased capillary refill. IV access: Patient had peripheral IVs in both upper extremities. PICC line placement is pending. : Chapin was in place. NEUROLOGIC: The patient was sedated. SKIN: No rashes except for some scattered ecchymosis. LABORATORY DATA: White count on admission 15.7, today 23.25, hematocrit 40, platelets 61. INR 12.8. Creatinine 1.3, which is up from yesterday at 1.0, AST 197, ALT 160, alkaline phosphatase 152, admission was AST 390, ALT 204, alkaline phosphatase 104. Urinalysis showed no WBCs. Influenza DFA was negative. ASSESSMENT/PLAN: This is an 85-year-old male who presents with severe hypoxia, with evidence of worsening hypoperfusion while hospitalized, with a concern that this could be severe sepsis. Also could consider other etiologies of hypoperfusion such as cardiac etiology or blood loss. Current pattern of chest x-ray most consistent with acute respiratory distress syndrome secondary to PNA , pulmonary hemorrhage versus volume overload. Differential diagnosis of infectious etiologies include viral pneumonia, aspiration pneumonia, Legionella , mycoplasma and less likely more typical pathogens such as pneumococcus and H flu. No chronic steroid use makes opportunistic pathogens unlikely Assessment: 1. Resp Failure/diffuse Pulmonary infiltrates, possible PNA but suspect pulmonary hemorrhage 2. Elevated LFTs, likely related to hypoperfusion from sepsis, bleeding or cardiac etiology as above. 3. Leukocytosis. The patient is on high-dose steroids, Solu-Medrol 120 q.8. This could be demargination from receipt of steroids. Also could consider underlying infectious process. 4. Elevated creatinine. Will continue to monitor closely. One renal toxic agent, vancomycin, was removed by me today. 5. We will continue to reassess the patient's true allergies as reports penicillin is not accurate. RECOMMENDATIONS: 1. Based on CXR pattern, pneumonia due to methicillin-resistant Staphylococcus aureus is unlikely and we will discontinue vancomycin. Notably, in a patient with increasing creatinine, this will hopefully help mitigate that process. 2. Continue meropenem and doxycycline for now. 3. Follow blood cultures, sputum cultures and serologic evaluation. 4. When safe, could consider BAL for further microbiologic data. But currently INR is significantly prolonged at 12 and not safe to complete. Thank you for this consultation. We will continue following with you. /[id number]/MODL MTDD
[2016-06-10] MEDS: OMEGA-3 FATTY ACIDS 1,000 MG CAP PO SCH ×2 (10:11→20:25)
[2016-06-10] MEDS: MULTIVITAMINS W-MINERALS 1 EACH TAB PO SCH (10:12)
[2016-06-10] MEDS: SENNOSIDES/DOCUSATE SODIUM TAB PO SCH ×2 (10:12→20:25)
[2016-06-10] MEDS: ZINC GLUCONATE 50 MG TAB PO SCH (10:12)
[2016-06-10] MEDS: PANTOPRAZOLE SODIUM 40 MG TAB PO SCH (10:17)
[2016-06-10] MEDS ORDERED: NOREPINEPHRINE BITARTRATE 4 MG in D5W 500 ML IV SCH (12:00)
[2016-06-10 12:16] LABS: HEMATOCRIT 30.3 % (40.0-51.0); HEMOGLOBIN 9.9 g/dL (13.7-17.5); LIPEMIA HEMOLYSIS FLAG 80 (0-99); MEAN CELL HEMOGLOBIN 29.6 pg (27.9-34.1); MEAN CELL HEMOGLOBIN CONCENTR. 32.7 g/dL (32.4-36.7); MEAN CELL VOLUME 90.4 fL (81.5-99.8); PLATELET CLUMPS FLAG 10 (0-99); RED BLOOD CELL COUNT 3.35 10^6/uL (4.40-6.38); RED CELL DISTRIBUTION WIDTH 15.2 % (11.5-15.2)
[2016-06-10 12:18] LABS: RESPPCR RESULT SEE COMMENTS
[2016-06-10 12:21] LABS: PLATELET COUNT 31 10^3/uL (150-400)
[2016-06-10 12:39] LABS: INR 4.25 (0.83-1.16); PROTIME(PATIENT) 41.7 SEC (12.0-15.0)
[2016-06-10 12:41] LABS: APTT 43.2 SEC (23.0-38.0)
[2016-06-10 12:48] LABS: PLATELET ESTIMATE DECREASED (ADEQ)
--- NOTE | 2016-06-10 13:48 | HOSPPROG ---
Hospitalist Progress Note Assessment/Plan: * acute hypoxic respiratory failure * due to COPD exacerbation, pneumonia and pneumonitis * worse this morning in spite of antibiotics and steroids * question of pulmonary hemorrhage * on ventilator with high support settings to maintain oxygenation * community-acquired pneumonia versus other * failed outpatient Levaquin * on doxycycline and meropenem currently * coagulopathy * due to Coumadin and possibly interaction with antibiotics but wondering if DIC playing a role * following closely * thrombocytopenia * consumptive versus drug-induced versus DIC * may need transfusion since afternoon platelets are in the 30s * elevated liver function tests * possible due to sepsis versus viral * possible viral pneumonitis versus ILD * COPD exacerbation * continue steroids. * atrial fibrillation status post ablation * INR supratherapeutic, hold Coumadin * sepsis * resolving * nonischemic cardiomyopathy with EF of 40%, status post Bi V ICD * hypertension * hyperlipidemia * patient is critically ill with borderline functional status to begin with - prognosis is overall poor. daughter is an ICU nurse and so may discuss aggressiveness of care with her when she comes ADDENDUM - DIC PANEL IS POSITIVE. DISCUSSED WITH HEMATOLOGY. WILL GIVE CRYO, FFP AND ANOTHER DOSE OF VITAMIN K. MAY CONSIDER PLATELETS IF THEY DROP ANY FURTHER. I DISCUSSED THE CASE WITH HIS DAUGHTER WHO IS AN ICU NURSE. SHE IS AWARE OF HOW SICK HE IS AND POOR OVERALL PROGNOSIS. 35 minutes of critical care time spent Subjective: intubated this morning for worsening hypoxic and hypercapnic respiratory failure. Objective: Vital Signs Temp Pulse Resp BP Pulse Ox 36.7 C 80 20 97/61 L 94 06/10/16 12:00 06/10/16 13:00 06/10/16 13:00 06/10/16 13:00 06/10/16 12:00 Microbiology 06/09/16 09:15 - Final Sputum, Expectorated Laboratory Results 06/10/16 12:00 06/10/16 04:30 06/09/16 06/10/16 06/11/16 05:59 05:59 05:59 Intake Total 2492 205 Output Total 465 401 Balance 2026 PT 41.7 SEC (12.0-15.0) H D 06/10/16 12:00 INR 4.25 (0.83-1.16) H 06/10/16 12:00 - Physical Exam Constitutional: no apparent distress, appears nourished, not in pain Ears, Nose, Mouth, Throat: other ( ET tube with bloody secretions) Cardiovascular: regular rate and rhythym, no murmur, rub, or gallop, edema ( trace) Respiratory: no respiratory distress, no rales or rhonchi, clear to auscultation ( anteriorly) Gastrointestinal: normoactive bowel sounds, soft, non-tender abdomen, no palpable masses Skin: warm Neurologic: other ( sedated) ICD10 Worksheet Patient Problems: Problems Problem Status Onset Hyperplasia of prostate Active Atrial fibrillation or flutter Acute Pneumonia Acute Severe sepsis Acute
[2016-06-10 13:50] LABS: FIBRINOGEN 60 mg/dL (214-456)
[2016-06-10 13:51] LABS: PLATELET COUNT 31 10^3/uL (150-400)
[2016-06-10] MEDS ORDERED: ACETAMINOPHEN 650 MG SUPP PR ONE (16:31)
[2016-06-10] MEDS ORDERED: D50W 25 GM/50 ML VIAL IVP PRN (16:44)
[2016-06-10] MEDS ORDERED: PARAMETERS MISC PRN (16:44)
[2016-06-10] MEDS ORDERED: D50W 25 GM/50 ML SYR IVP PRN (16:44)
--- NOTE | 2016-06-10 16:56 | ECHO ---
[id number] + + [address] : : [place] [address] : : [phone] + + Adult Echocardiographic Report + -----+ :Name: AMBER MÉNDEZ VStudy Date: 06/10/2016 09:47 AM : : Hospital Admission Number: [id number] Location : 253: :: 1930 Gender: Male Height: 72 in : :Age: 85 yrs Race: WH Weight: 253 lb : :Reason For Study: Eval LV Fx : : BSA: 2.4 meters2 : :History: Respiratory failure, diffuse alveolar infiltrates, : :intubated. : + -----+ MMode/2D Measurements \T\ Calculations IVSd: 0.89 cm LVIDd: 4.5 cm FS: 27.7 % Ao root diam: 3.5 cm LVPWd: 1.1 cm LVIDs: 3.3 cm EDV(Teich): 93.4 ml ACS: 1.8 cm ESV(Teich): 43.1 ml EF(Teich): 53.8 % Normal Measurement Values: + + :LVIDd (3.5-5.7cm) IVSd (0.6-1.1cm) LVPWd (0.6-1.1cm) Aortic Root (2.0-3.7cm)Left Atrium (1.5-4.0cm): :LV Vol(d) (76-115ml) LV Vol(s) (29-48ml) Ejec Fraction (50-65%)PV Eder (0.6- 1.2m/s) TV Eder (0.4-1.0m/s) : :MV E Eder (0.8-1.0m/s)MV A Eder (0.3-1.0m/s)LVOT Eder (0.7-1.2m/s) Asc Ao Eder ( 0.9-1.8m/s) : + + Doppler Measurements \T\ Calculations MV E max eder: Ao V2 max: LV V1 max: PA V2 max: 66.6 cm/sec 122.2 cm/sec 70.6 cm/sec 51.6 cm/sec Ao max P.0 mmHgLV V1 max PG: PA max P.0 mmHg 1.1 mmHg PI end-d eder: TR max eder: 179.2 cm/sec 347.5 cm/sec TR max P.3 mmHg RAP systole: 5.0 mmHg RVSP(TR): 53.3 mmHg Left Ventricle The left ventricle is normal in size. There is normal left ventricular wall thickness. Ejection Fraction = 40-45%. Flattened septum is consistent with RV pressure/volume overload. Right Ventricle The right ventricle is mildly dilated. There is a pacemaker lead in the right ventricle. The right ventricular systolic function is moderately reduced. Atria The left atrium is mildly dilated. The right atrium is mildly dilated. Mitral Valve The mitral valve is normal. There is no mitral valve stenosis. There is mild mitral regurgitation. Tricuspid Valve There is moderate tricuspid regurgitation. Right ventricular systolic pressure is 53mmHg. There is Doppler evidence for moderate pulmonary hypertension. Aortic Valve Mild Aortic Valve Calcification. The aortic valve is trileaflet. There is no aortic stenosis. There is no aortic insufficiency. Pulmonic Valve Mild pulmonic valvular regurgitation. Great Vessels The aortic root is normal size. Pericardium/Pleural There is no pericardial effusion. Sick Sinus Syndrome. Conclusion A complete two-dimensional transthoracic echocardiogram was performed (2D, M-mode, Doppler and color flow Doppler). Mild pulmonic valvular regurgitation.Ejection Fraction = 40-45%. The right ventricle is mildly dilated. The right ventricular systolic function is moderately reduced. There is a pacemaker lead in the right ventricle. The left atrium is mildly dilated. The right atrium is mildly dilated. Mild aortic valve calcification. The aortic valve is trileaflet. The mitral valve is normal. There is mild mitral regurgitation. There is moderate tricuspid regurgitation. There is Doppler evidence for moderate pulmonary hypertension. Right ventricular systolic pressure is 53mmHg. There is no pericardial effusion. Final Reading Physician: Avril Thomas signed on 06/10/2016 04:55 PM Ordering Physician: Kenya Graves Performed By: Jose Coyle, RDCS
[2016-06-10] MEDS: INSULIN REGULAR, HUMAN 100 UNIT/1 ML VIAL STANDARD SC SCH ×2 (17:32→23:16)
--- NOTE | 2016-06-10 17:53 | GCON ---
HEMATOLOGY CONSULTATION REFERRING PHYSICIAN: Aleks Bradley MD REASON FOR CONSULTATION: Disseminated intravascular coagulation. RECOMMENDATIONS: 1. Agree with transfusion of cryoprecipitate, fresh frozen plasma and platelets as well as red cell s as needed. 2. Agree with vitamin K. 3. I do not see a role for heparin therapy at this time. 4. We will continue to follow along with you in this critically ill gentleman. ASSESSMENT: This 85-year-old white male presents with pneumonia which failed outpatient therapy yohan Mason. Symptoms started a little over 2 weeks ago. He did not feel better. He was beginning to cough up mucus with some blood. He had been on warfarin I believe for his cardiac issues. Kendrain g this hospitalization, he has had progressive deterioration and required intubation. He has bilate ral pulmonary infiltrates. His INR was initially elevated at above therapeutic at 6.05. Yesterday, it came down to 4.89 after vitamin K, but today went up to 12.8. DIC panel was obtained which show ed an elevated PTT at 43.2, an elevated INR at 4.25, and a very low fibrinogen at 60 with a D-dimer greater than 20. 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 The treatment for DIC is to treat the underlying disorder, as you are doing. Unfortunately, his ove rall prognosis looks very poor. He will also need frequent factor replacement as well as platelets. I do not think there is a role for heparin in this individual. Low-dose heparin has been given in the past in cases of DIC. However, it is in very limited circumstances and is of questionable bene fit. HISTORY OF PRESENT ILLNESS: Please see Assessment. PAST MEDICAL HISTORY: Remarkable for COPD. He has had atrial fibrillation, status post ablation. He has a nonischemic cardiomyopathy with an ejection fraction of 40% prior to his hospitalization. He has a history of hypertension, hyperlipidemia and BPH. SOCIAL HISTORY: He has been living at home with his . He has approximately 2 alcoholic drinks per day. The patient quit smoking in the 1970s. REVIEW OF SYSTEMS: Not obtainable at this time due to the patient being intubated and sedated. The history thus far is primarily obtained from the other healthcare providers and the patient's chart. PHYSICAL EXAMINATION: GENERAL: Physical examination reveals a sedated, intubated gentleman. He is pale. He has evidence of blood coming out of his NG tube, his ET tube, and at venipuncture sites. He also has multiple bruises noted. LUNGS: Reveal rhonchi bilaterally. CHEST: He has bilateral gynecomastia. ABDOMEN: Abdominal exam is showed a soft abdomen. He has diminished bowel sounds. SKIN: Shows multiple ecchymoses and areas of purpura. DIAGNOSTIC DATA: For his DIC panel, please see above. His CBC today shows a white count of 17,380 with a hemoglobin of 9.9 and a platelet count of 31,000. He has an elevated total bilirubin at 5.2. The majority is unconjugated. He may have an element of hemolysis also along with the DIC. His A ST, ALT and alkaline phosphatase were all elevated, also. His creatinine is 1.3. His potassium is 4.4. Thank you very much for allowing us to consult on this critically ill gentleman. We will look forwa rd to assisting with his management in the hospital and beyond if appropriate. /[id number]/MODL
--- NOTE | 2016-06-10 18:24 | SOAPPROG ---
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 Plan: 1. s/p successful complex urethral catheterization. 2. Chapin may be removed at the discretion of attending providers. 06/10/16 18:23 Subjective: Staff unable to catheterize with urinary retention. Objective: Vital Signs Temp Pulse Resp BP Pulse Ox 36.3 C 82 20 88/59 L 95 06/10/16 16:00 06/10/16 17:00 06/10/16 17:00 06/10/16 17:00 06/10/16 17:00 Microbiology 06/09/16 09:15 - Final Sputum, Expectorated Laboratory Results 06/10/16 12:00 06/10/16 04:30 06/09/16 06/10/16 06/11/16 05:59 05:59 05:59 Intake Total 2492 205 1620 Output Total 465 401 Balance 2026 - 1620 PT 41.7 SEC (12.0-15.0) H D 06/10/16 12:00 INR 4.25 (0.83-1.16) H 06/10/16 12:00 Physical Exam - Physical Exam Abdomen: other (obese) Male Genitalia: other (noncircumcised with small amount of dry blood on penile glans, normal meatus) ICD10 Worksheet Patient Problems: Problems Problem Status Onset Pneumonia Acute Severe sepsis Acute Hyperplasia of prostate Active Atrial fibrillation or flutter Acute
[2016-06-10 18:28] LABS: % IMMATURE GRANULYOCYTES 1.6 % (0.0-1.1); ABSOLUTE IMMATURE GRANULOCYTES 0.28 10^3/uL (0.00-0.10); ABSOLUTE NRBC COUNT 0.02 10^3/uL (0-0.01); ADD DIFF? NO; ADD MORPH? NO; ADD SCAN? NO; ATYPICAL LYMPHOCYTE FLAG 0 (0-99); FRAGMENT RBC FLAG 20 (0-99); HEMATOCRIT 28.4 % (40.0-51.0); HEMOGLOBIN 9.3 g/dL (13.7-17.5); LEFT SHIFT FLG 20 (0-99); LIPEMIA HEMOLYSIS FLAG 80 (0-99); MEAN CELL HEMOGLOBIN 29.5 pg (27.9-34.1); MEAN CELL HEMOGLOBIN CONCENTR. 32.7 g/dL (32.4-36.7); MEAN CELL VOLUME 90.2 fL (81.5-99.8); NRBC-AUTO% 0.1 % (0.0-0.2); PLATELET CLUMPS FLAG 0 (0-99); PLATELET COUNT 65 10^3/uL (150-400); RED BLOOD CELL COUNT 3.15 10^6/uL (4.40-6.38); RED CELL DISTRIBUTION WIDTH 15.1 % (11.5-15.2)
[2016-06-10 18:47] LABS: INR 2.15 (0.83-1.16); PROTIME(PATIENT) 24.2 SEC (12.0-15.0)
[2016-06-10 18:48] LABS: APTT 33.2 SEC (23.0-38.0)
[2016-06-10 19:37] LABS: FIBRINOGEN 144 mg/dL (214-456)
[2016-06-10 20:31] LABS: ASSIST CONTROL YES; BASE EXCESS -2.6 mEq/L (-2.5-2.5); BICARBONATE 22 mEq/L (22-26); MEASURED OXYGEN SATURATION 97 % (92-95); PCO2 40 mmHg (34-38); PO2 89 mmHg (65-75); TCO2 23 mEq/L (23-27)
[2016-06-10 20:32] LABS: END TIDAL CO2 22; O2 CONCENTRATIION 80 % (0-100); P/F RATIO 111 RATIO; TOTAL RATE 30
[2016-06-11] MEDS: ALBUTEROL 60 PUFFS/8 GM MDI IH SCH ×6 (00:01→20:11)
[2016-06-11] MEDS: IPRATROPIUM HFA INHALER IH SCH ×6 (00:01→20:10)
[2016-06-11 00:53] LABS: % IMMATURE GRANULYOCYTES 1.4 % (0.0-1.1); ABSOLUTE IMMATURE GRANULOCYTES 0.21 10^3/uL (0.00-0.10); ABSOLUTE NRBC COUNT 0.06 10^3/uL (0-0.01); ADD DIFF? NO; ADD MORPH? NO; ADD SCAN? NO; ATYPICAL LYMPHOCYTE FLAG 0 (0-99); FRAGMENT RBC FLAG 20 (0-99); HEMATOCRIT 27.9 % (40.0-51.0); HEMOGLOBIN 9.2 g/dL (13.7-17.5); LEFT SHIFT FLG 20 (0-99); LIPEMIA HEMOLYSIS FLAG 80 (0-99); MEAN CELL HEMOGLOBIN 29.6 pg (27.9-34.1); MEAN CELL VOLUME 89.7 fL (81.5-99.8); NRBC-AUTO% 0.4 % (0.0-0.2); PLATELET CLUMPS FLAG 10 (0-99); PLATELET COUNT 55 10^3/uL (150-400); RED BLOOD CELL COUNT 3.11 10^6/uL (4.40-6.38); RED CELL DISTRIBUTION WIDTH 15.4 % (11.5-15.2)
[2016-06-11 00:56] LABS: PLATELET COUNT 55 10^3/uL (150-400)
[2016-06-11 01:04] LABS: APTT 32.9 SEC (23.0-38.0); INR 2.14 (0.83-1.16); PROTIME(PATIENT) 24.1 SEC (12.0-15.0)
[2016-06-11 01:10] LABS: FIBRINOGEN 124 mg/dL (214-456)
[2016-06-11 04:36] LABS: INR 2.08 (0.83-1.16); PROTIME(PATIENT) 23.5 SEC (12.0-15.0)
[2016-06-11 04:51] LABS: ALANINE AMINOTRANSFERASE 153 IU/L (21-72); ALBUMIN 3.3 g/dL (3.5-5.0); ALKALINE PHOSPHATASE 100 IU/L (38-126); ANION GAP 9 mEq/L (8-16); ASPARTATE AMINOTRANSFERASE 138 IU/L (17-59); CALCIUM 8.7 mg/dL (8.5-10.4); CARBON DIOXIDE 26 mEq/l (22-31); CHLORIDE 111 mEq/L (97-110); CREATININE 1.5 mg/dL (0.7-1.3); GLOMERULAR FILTRATION RATE 45; GLUCOSE 161 mg/dL (70-100); POTASSIUM 4.4 mEq/L (3.5-5.2); SODIUM 146 mEq/L (134-144); TOTAL PROTEIN 6.1 g/dL (6.3-8.2)
[2016-06-11] MEDS: LEVOTHYROXINE 50 MCG TAB PO SCH (05:07)
[2016-06-11] MEDS: MEROPENEM 1 GM in NS 100 ML IV SCH ×3 (05:14→21:09)
[2016-06-11] MEDS: methylPREDNISolone SOD SUCC 125 MG/2 ML VIAL IVP SCH ×3 (05:14→18:16)
[2016-06-11] MEDS: PROPOFOL/EMULSION 100 ML IV SCH ×4 (05:14→21:53)
[2016-06-11 05:24] LABS: BILIRUBIN-CONJUGATED 1.6 mg/dL (0.0-0.5); BILIRUBIN-UNCONJUGATED 1.4 mg/dL (0.0-1.1)
[2016-06-11 05:28] LABS: BASE EXCESS -2.7 mEq/L (-2.5-2.5); BICARBONATE 23 mEq/L (22-26); MEASURED OXYGEN SATURATION 96 % (92-95); PCO2 43 mmHg (34-38); PO2 85 mmHg (65-75); TCO2 24 mEq/L (23-27)
[2016-06-11 05:30] LABS: ASSIST CONTROL YES; END TIDAL CO2 23; O2 CONCENTRATIION 80 % (0-100); P/F RATIO 106 RATIO
[2016-06-11 05:31] LABS: TOTAL RATE 30
[2016-06-11] MEDS: INSULIN REGULAR, HUMAN 100 UNIT/1 ML VIAL STANDARD SC SCH ×3 (05:36→18:16)
[2016-06-11] MEDS: DOXYCYCLINE INJ 100 MG in NS 250 ML IV SCH ×2 (08:02→21:09)
[2016-06-11] MEDS: ZINC GLUCONATE 50 MG TAB PO SCH (08:04)
[2016-06-11] MEDS: SENNOSIDES/DOCUSATE SODIUM TAB PO SCH ×2 (08:04→21:09)
[2016-06-11] MEDS: MULTIVITAMINS W-MINERALS 1 EACH TAB PO SCH (08:04)
[2016-06-11] MEDS: OMEGA-3 FATTY ACIDS 1,000 MG CAP PO SCH ×2 (08:04→21:09)
[2016-06-11 08:07] LABS: % IMMATURE GRANULYOCYTES 1.4 % (0.0-1.1); ABSOLUTE IMMATURE GRANULOCYTES 0.24 10^3/uL (0.00-0.10); ABSOLUTE NRBC COUNT 0.07 10^3/uL (0-0.01); ADD DIFF? NO; ADD MORPH? NO; ADD SCAN? NO; ATYPICAL LYMPHOCYTE FLAG 0 (0-99); FRAGMENT RBC FLAG 20 (0-99); HEMATOCRIT 29.5 % (40.0-51.0); HEMOGLOBIN 9.7 g/dL (13.7-17.5); LEFT SHIFT FLG 10 (0-99); LIPEMIA HEMOLYSIS FLAG 80 (0-99); MEAN CELL HEMOGLOBIN 30.1 pg (27.9-34.1); MEAN CELL HEMOGLOBIN CONCENTR. 32.9 g/dL (32.4-36.7); MEAN CELL VOLUME 91.6 fL (81.5-99.8); NRBC-AUTO% 0.4 % (0.0-0.2); PLATELET CLUMPS FLAG 0 (0-99); PLATELET COUNT 56 10^3/uL (150-400); RED BLOOD CELL COUNT 3.22 10^6/uL (4.40-6.38); RED CELL DISTRIBUTION WIDTH 15.3 % (11.5-15.2)
[2016-06-11 08:10] LABS: INR 2.07 (0.83-1.16); PROTIME(PATIENT) 23.4 SEC (12.0-15.0)
[2016-06-11 08:16] LABS: APTT 31.1 SEC (23.0-38.0)
[2016-06-11] MEDS: PANTOPRAZOLE SODIUM 40 MG in NS 100 ML IV SCH (08:30)
[2016-06-11] MEDS ORDERED: FUROSEMIDE 40 MG/4 ML VIAL IVP ONE ×3 (08:30→15:30)
[2016-06-11] MEDS ORDERED: PANTOPRAZOLE SODIUM 40 MG in NS 100 ML IV ONE (08:30)
[2016-06-11 08:44] LABS: PLATELET COUNT 56 10^3/uL (150-400)
[2016-06-11 09:23] LABS: PLATELET COUNT 65 10^3/uL (150-400)
[2016-06-11 09:27] LABS: FIBRINOGEN 92 mg/dL (214-456)
--- NOTE | 2016-06-11 10:01 | SOAPPROG ---
SOAP Progress Note Assessment/Plan: Assessment: - DIC - fibrinogen 92 this AM, PTT normal, INR still up a bit. Still intubated/ bruising/blood in NG. Will give more FFP today. - Pneumonia - multilobar - still critically ill. Overall prognosis is still very poor. Plan: - 2 units FFP - continue to monitor DIC screen Subjective: Intubated/sedated Objective: Vital Signs Temp Pulse Resp BP Pulse Ox 36.3 C 76 30 H 104/62 94 06/11/16 08:34 06/11/16 09:15 06/11/16 09:15 06/11/16 09:15 06/11/16 09:15 Microbiology 06/09/16 09:15 - Final Sputum, Expectorated Laboratory Results 06/11/16 07:50 06/11/16 04:10 06/09/16 06/10/16 06/11/16 23:59 23:59 23:59 Intake Total 862 4438 1159 Output Total 600 951 965 Balance 262 3487 194 PT 23.4 SEC (12.0-15.0) H 06/11/16 07:50 INR 2.07 (0.83-1.16) H 06/11/16 07:50 Physical Exam - Physical Exam General Appearance: obtunded Respiratory: rhonchi (scattered) Skin: other (bruising. oozing from venipunctures) Neuro/Psych: other (cannot be adequately assessed.) ICD10 Worksheet Patient Problems: Problems Problem Status Onset Pneumonia Acute Severe sepsis Acute Hyperplasia of prostate Active Atrial fibrillation or flutter Acute
[2016-06-11] MEDS: fentaNYL/NACL 100 ML IV SCH ×2 (10:25→18:28)
--- NOTE | 2016-06-11 11:22 | PCMIDPN ---
Assessment/Plan: Assessment/Plan: * Respiratory failure with bilateral pulmonary infiltrates with DIC/hypotension/ acute renal failure: Unclear etiology for presentation with considerations including sepsis due to infectious etiologies versus inflammatory process and component of diffuse alveolar hemorrhage. Family does note that patient has a CT that often brings in animals including rabbits and mice. Raises additional consideration for zoonoses such as tularemia (less typical in winter) . Plague seems less likely given negative blood cultures and his cat currently remains healthy. Hantavirus could present with diffuse pulmonary infiltrates and DIC - family notes that several months ago they did clean up mouse droppings inside their house but have not noted anything significant recently. Travel to [place] 2 months ago raises consideration of Coccidioidomycosis although suspect this is less likely. Typical bacterial process seems less likely as would expect positive blood cultures based on severity of illness. Legionella is a consideration with urinary Legionella antigen pending. Inflammatory conditions such as Goodpasture's or polyangiitis with granulomatosis also of consideration. Remains severely ill with ongoing ICU supportive care and treatment of DIC. Continue empiric meropenem and doxycycline (doxycycline will have activity against zoonotic processes). Time spent, > 35 minutes, of which > 1/2 was spent in education/counseling and coordination of care related to respiratory failure, etiologic considerations, DIC and plan of care. Findings and plan reviewed with Dr. Pereira and Kirk. 06/11/16 11:16 06/11/16 11:26 Subjective: Intubated, sedated. Continued evidence of DIC with supportive care ongoing. History reviewed with family noting that patient does have a cat that is an indoor/outdoor cat "like a barn cat" the periodically brings in animals such as rabbits or mice/voles. The cat does sleep in their bed. Travel to [place] 2 months ago. Previously did have mouse droppings in her kitchen but these were cleaned up several months ago and have not been notable subsequently. Has not cleaned out any Jeremy or out buildings. [place] where farms are present including sheep. Objective: Vital Signs Temp Pulse Resp BP Pulse Ox 36.3 C 78 28 H 104/89 H 94 06/11/16 08:34 06/11/16 10:00 06/11/16 10:00 06/11/16 10:00 06/11/16 10:00 Microbiology 06/09/16 09:15 - Final Sputum, Expectorated Laboratory Results 06/11/16 07:50 06/11/16 04:10 06/10/16 06/11/16 06/12/16 05:59 05:59 05:59 Intake Total 205 5412 30 Output Total 401 1485 430 Balance -196 3927 -400 Meropenem # 3 Doxycycline # 3 Blood cultures x4 sets no growth Chest x-ray and CT scan reviewed. Urine Legionella antigen pending Respiratory virus PCR panel negative Influenza by DFA negative - Physical Exam General Appearance: other (Intubated, sedated) EENT: ET Tube, No scleral icterus, No conjunctival petechiae Respiratory: coarse breath sounds Cardiac/Chest: regular rate, rhythm, No systolic murmur Extremities: No inflammation Abdomen: non-tender, No distended Skin: other (Scattered ecchymoses but no diffuse purpura), No embolic lesions ICD10 Worksheet Patient Problems: Problems Problem Status Onset Pneumonia Acute Severe sepsis Acute Hyperplasia of prostate Active Atrial fibrillation or flutter Acute
--- NOTE | 2016-06-11 14:10 | HOSPPROG ---
Hospitalist Progress Note Assessment/Plan: * acute hypoxic respiratory failure * due to COPD exacerbation, pneumonia and pneumonitis * seems to be a little bit better * getting a little bit of Lasix * community-acquired pneumonia versus other * failed outpatient Levaquin * on doxycycline and meropenem currently * DIC * seems to be better. Status post cryoprecipitate, FFP and a dose of vitamin K * thrombocytopenia * status post transfusion * elevated liver function tests * possible due to sepsis versus viral * acute renal failure * watch creatinine closely * possible viral pneumonitis versus ILD * COPD exacerbation * continue steroids. * atrial fibrillation status post ablation * INR supratherapeutic, hold Coumadin * sepsis * resolving * nonischemic cardiomyopathy with EF of 40%, status post Bi V ICD * hypertension * hyperlipidemia * patient is critically ill with borderline functional status to begin with * difficult Chapin placement * required Urology to place 35 minutes of critical care time spent Subjective: better oxygenation. Less bleeding Objective: Vital Signs Temp Pulse Resp BP Pulse Ox 36.3 C 76 26 H 97/57 L 93 06/11/16 13:00 06/11/16 13:00 06/11/16 13:00 06/11/16 13:00 06/11/16 13:00 Microbiology 06/09/16 09:15 - Final Sputum, Expectorated Laboratory Results 06/11/16 07:50 06/11/16 04:10 06/10/16 06/11/16 06/12/16 05:59 05:59 05:59 Intake Total 205 5412 30 Output Total 401 1485 1070 Balance -196 3927 -1040 PT 23.4 SEC (12.0-15.0) H 06/11/16 07:50 INR 2.07 (0.83-1.16) H 06/11/16 07:50 - Physical Exam Constitutional: no apparent distress, appears nourished, not in pain Eyes: anicteric sclera, EOMI Cardiovascular: regular rate and rhythym, no murmur, rub, or gallop Respiratory: no respiratory distress, no rales or rhonchi, clear to auscultation Gastrointestinal: normoactive bowel sounds, soft, non-tender abdomen, no palpable masses Skin: warm Neurologic: other ( sedated) ICD10 Worksheet Patient Problems: Problems Problem Status Onset Pneumonia Acute Severe sepsis Acute Hyperplasia of prostate Active Atrial fibrillation or flutter Acute
--- NOTE | 2016-06-11 14:46 | PDINTPN ---
Sausage Cutter Progress Note Assessment/Plan: Assessment/plan: 85 M with hx COPD, CHF with EF 45, chronic afib, and pacer; admitted 06/08/16 with SOB and PNA after failing outpatient Abx. CT ruled out PE, but showed significant bilateral infiltrates suggestive of ILD. Rx'd with meropenem, doxy, and vanco; and appeared stable AM 06/09/16 on SM. He deteriorated overnight and required intubation early AM 06/10. His INR was found to be 12.8 and was given vitamin K and FFP. His BP was low post-intubation, but responded to blood products and fluid challenge. CXR was much worse diffuse infiltrates. * Respiratory failure with hypoxia- 2/2 PNA which may have been progressing on current abx. DDx of acute decompensation includes PNA, COPD, CHF, DAH. BNP >13, 000 and CXR compatible with significant cardiac history. Added lasix this am and will continue efforts to reduce O2. Keep peep at 12 until FiO2 <50 * COPD- 2/2 above. Continue solumedrol and change albuterol to duoneb since cant get spiriva on vent. Abx include doxy and wagner; vanco dc'd. Other unusual etiologies being pursued, eg Hantavirus, etc. * ILD- seems less likely since patient reports feeling baseline in last 2-3 months. Family reports slow decline over same period. Not stable for biopsy at this time and short term rx would be steroids regardless. Re-eval after recovery * afib- currently 100% paced * chf?- Lasix as above * lockett- Rn attempted several times including Coude. Placed by urology 06/10/16 * inr- DIC 2/2 ? Seems late compared to admit date. Heme eval appreciated. Coags much better today and heme recommended additional FFP (given) * LFT- mildly elevated but falling. * platelet/dic- falling platelets c/w DIC. as above * critical care time 45 minutes 06/11/16 14:43 Subjective: Improved overnight. Lockett placed by urology, BP improved and FiO2 decreased. Objective: Vital Signs Temp Pulse Resp BP Pulse Ox 36.3 C 76 26 H 105/62 93 06/11/16 13:00 06/11/16 14:00 06/11/16 14:00 06/11/16 14:00 06/11/16 14:00 Microbiology 06/09/16 09:15 - Final Sputum, Expectorated Laboratory Results 06/11/16 07:50 06/11/16 04:10 06/10/16 06/11/16 06/12/16 05:59 05:59 05:59 Intake Total 205 5412 30 Output Total 401 1485 1070 Balance -196 3927 -1040 PT 23.4 SEC (12.0-15.0) H 06/11/16 07:50 INR 2.07 (0.83-1.16) H 06/11/16 07:50 Physical Exam - Physical Exam General Appearance: no apparent distress, other (on vent) EENT: PERRL/EOMI Neck: supple Respiratory: lungs clear, decreased breath sounds (bilateral), No rales, No rhonchi, No wheezing Cardiac/Chest: normal peripheral pulses, regular rate, rhythm, No edema Abdomen: non-tender, soft, distended, No guarding, No rebound, No mass Skin: normal color, warm/dry, No rash Lymphatic: no adenopathy Extremities: No pedal edema Neuro/Psych: no motor/sensory deficits, No abnormal golf ball marker II-XII ICD10 Worksheet Patient Problems: Problems Problem Status Onset Pneumonia Acute Severe sepsis Acute Hyperplasia of prostate Active Atrial fibrillation or flutter Acute
[2016-06-11 16:01] LABS: % IMMATURE GRANULYOCYTES 1.7 % (0.0-1.1); ABSOLUTE NRBC COUNT 0.09 10^3/uL (0-0.01); ADD DIFF? NO; ADD MORPH? NO; ADD SCAN? NO; ATYPICAL LYMPHOCYTE FLAG 0 (0-99); FRAGMENT RBC FLAG 20 (0-99); HEMATOCRIT 27.9 % (40.0-51.0); LEFT SHIFT FLG 10 (0-99); LIPEMIA HEMOLYSIS FLAG 80 (0-99); MEAN CELL HEMOGLOBIN 29.2 pg (27.9-34.1); MEAN CELL HEMOGLOBIN CONCENTR. 32.3 g/dL (32.4-36.7); MEAN CELL VOLUME 90.6 fL (81.5-99.8); NRBC-AUTO% 0.8 % (0.0-0.2); PLATELET CLUMPS FLAG 0 (0-99); RED BLOOD CELL COUNT 3.08 10^6/uL (4.40-6.38); RED CELL DISTRIBUTION WIDTH 15.4 % (11.5-15.2)
[2016-06-11 16:03] LABS: PLATELET COUNT 46 10^3/uL (150-400)
[2016-06-11 16:22] LABS: PLATELET ESTIMATE DECREASED (ADEQ)
[2016-06-11 16:24] LABS: INR 1.83 (0.83-1.16); PROTIME(PATIENT) 21.2 SEC (12.0-15.0)
[2016-06-11 17:15] LABS: PLATELET COUNT 46 10^3/uL (150-400)
[2016-06-12] MEDS: IPRATROPIUM HFA INHALER IH SCH ×7 (00:02→23:44)
[2016-06-12] MEDS: ALBUTEROL 60 PUFFS/8 GM MDI IH SCH ×7 (00:03→23:45)
[2016-06-12] MEDS: methylPREDNISolone SOD SUCC 125 MG/2 ML VIAL IVP SCH ×4 (00:39→17:17)
[2016-06-12] MEDS: INSULIN REGULAR, HUMAN 100 UNIT/1 ML VIAL STANDARD SC SCH ×4 (00:43→19:01)
[2016-06-12] MEDS: PROPOFOL/EMULSION 100 ML IV SCH ×6 (01:33→21:52)
[2016-06-12] MEDS: fentaNYL/NACL 100 ML IV SCH ×3 (02:43→17:18)
[2016-06-12 04:26] LABS: INR 2.13 (0.83-1.16)
[2016-06-12 04:27] LABS: APTT 30.6 SEC (23.0-38.0)
[2016-06-12 05:12] LABS: FIBRINOGEN 60 mg/dL (214-456)
[2016-06-12 05:51] LABS: PLATELET COUNT 52 10^3/uL (150-400)
[2016-06-12 06:32] LABS: HEMATOCRIT 28.5 % (40.0-51.0); HEMOGLOBIN 9.1 g/dL (13.7-17.5); MEAN CELL HEMOGLOBIN 29.7 pg (27.9-34.1); MEAN CELL HEMOGLOBIN CONCENTR. 31.9 g/dL (32.4-36.7); MEAN CELL VOLUME 93.1 fL (81.5-99.8); RED BLOOD CELL COUNT 3.06 10^6/uL (4.40-6.38); RED CELL DISTRIBUTION WIDTH 15.5 % (11.5-15.2)
[2016-06-12] MEDS: MEROPENEM 1 GM in NS 100 ML IV SCH ×3 (06:50→21:22)
[2016-06-12] MEDS: LEVOTHYROXINE 50 MCG TAB PO SCH (07:04)
--- NOTE | 2016-06-12 08:54 | PCMIDPN ---
Assessment/Plan: 85 yo male with COPD remains critically ill with respiratory failure and DIC with unclear infectious ppt, considering possible zoonotic exposure via exposure to cat, travel to [place] broadening ddx to include tularemia, cocci, hanta, q fever as detailed in Dr. Erwin's note. Persistent DIC today, but vent setting significantly improved (FIO2 60%, PEEP 16), WBC trending down, AF. ECHO performed with stable EF, LFTs improving, but Cr slightly up today (CrCl 57 ) --continue doxycycline, meropenem, if worsening renal function with decrease meropenem dosing to [id number] --await multiple serologic tests, doxycycline covering potential zoonotic sources medications meropenem 1gm IV q8h, #4 doxycycline 100mg IV q12, #4 microbiology Blood cultures 06/08, 06/10 2 sets each day no growth Urine Legionella antigen negative Respiratory virus PCR panel negative Influenza by DFA negative Hanta pending tularemia Ab pending cocci pending q fever pending Case discussed with Dr. Bradley, Dr Pereira Subjective: no specific events overnight Objective: Vital Signs Temp Pulse Resp BP Pulse Ox 36.4 C 72 31 H 99/51 L 96 06/12/16 00:00 06/12/16 07:57 06/12/16 07:57 06/12/16 05:00 06/12/16 07:57 Microbiology 06/09/16 09:15 - Final Sputum, Expectorated Sputum Culture - Final Angela [facility] Laboratory Results 06/12/16 03:55 06/11/16 04:10 06/11/16 06/12/16 06/13/16 05:59 05:59 05:59 Intake Total 5412 3309 Output Total 1485 2490 Balance 3927 819 AF Gen: sedated on Vent, HEENT: OGT, ETT, dry MMM, no obvious oral lesions Neck supple RUE PICC C/D/I +anasarca, scattered ecchymosis CV RRR Chest: course bs on vent Abd: decrease bowel sounds, soft Neuro sedated : scrotal edema, lockett skin/Ext :+anasarca, scattered ecchymosis, no other rashes - Time Spent With Patient Time Spent with Patient: greater than 35 minutes Time Spent with Patient: Greater than 35 minutes spent on this patients care, greater than 50% of time spent counseling, educating, and coordinating care regarding the above mentioned plan. ICD10 Worksheet Patient Problems: Problems Problem Status Onset Pneumonia Acute Severe sepsis Acute Hyperplasia of prostate Active Atrial fibrillation or flutter Acute
[2016-06-12 10:17] LABS: LACTATE DEHYDROGENASE 2220 IU/L (313-618)
[2016-06-12 10:27] LABS: ALANINE AMINOTRANSFERASE 118 IU/L (21-72); ALBUMIN 3.2 g/dL (3.5-5.0); ALKALINE PHOSPHATASE 78 IU/L (38-126); ANION GAP 10 mEq/L (8-16); ASPARTATE AMINOTRANSFERASE 50 IU/L (17-59); BILIRUBIN,TOTAL 2.1 mg/dL (0.1-1.4); CALCIUM 8.6 mg/dL (8.5-10.4); CARBON DIOXIDE 27 mEq/l (22-31); CHLORIDE 112 mEq/L (97-110); CREATININE 1.5 mg/dL (0.7-1.3); GLOMERULAR FILTRATION RATE 45; GLUCOSE 235 mg/dL (70-100); POTASSIUM 4.5 mEq/L (3.5-5.2); SODIUM 149 mEq/L (134-144); TOTAL PROTEIN 5.9 g/dL (6.3-8.2)
[2016-06-12 10:34] LABS: BILIRUBIN-CONJUGATED 1.4 mg/dL (0.0-0.5); BILIRUBIN-UNCONJUGATED 0.7 mg/dL (0.0-1.1)
[2016-06-12] MEDS: PANTOPRAZOLE SODIUM 40 MG in NS 100 ML IV SCH (10:54)
[2016-06-12] MEDS: SENNOSIDES/DOCUSATE SODIUM TAB PO SCH ×2 (10:55→21:22)
[2016-06-12] MEDS: ZINC GLUCONATE 50 MG TAB PO SCH (10:55)
[2016-06-12] MEDS: DOXYCYCLINE INJ 100 MG in NS 250 ML IV SCH ×2 (10:55→21:22)
[2016-06-12] MEDS: MULTIVITAMINS W-MINERALS 1 EACH TAB PO SCH (10:55)
[2016-06-12] MEDS: OMEGA-3 FATTY ACIDS 1,000 MG CAP PO SCH ×2 (10:55→21:22)
[2016-06-12 11:04] LABS: FIBRINOGEN 95 mg/dL (214-456)
--- NOTE | 2016-06-12 11:39 | SOAPPROG ---
SOAP Progress Note Assessment/Plan: Assessment: - DIC - fibrinogen 60 this AM, INR is creeping up to 2.1. Still intubated but no blood in his ET tube. I would hold off on additional cryo/ffp/plts unless he has clinically increased bleeding - Pneumonia - multilobar - Minor improvement but still critically ill. Plan: Monitor DIC screen daily. Monitor clinical status. Will continue to follow with you. Subjective: Intubated/sedated Objective: Vital Signs Temp Pulse Resp BP Pulse Ox 36.4 C 72 31 H 99/51 L 96 06/12/16 00:00 06/12/16 07:57 06/12/16 07:57 06/12/16 05:00 06/12/16 07:57 Microbiology 06/09/16 09:15 - Final Sputum, Expectorated Sputum Culture - Final Angela [facility] Laboratory Results 06/12/16 03:55 06/12/16 08:00 06/10/16 06/11/16 06/12/16 23:59 23:59 23:59 Intake Total 4438 3213 1225 Output Total 951 2555 470 Balance 3487 658 755 PT 24.0 SEC (12.0-15.0) H 06/12/16 03:55 INR 2.13 (0.83-1.16) H 06/12/16 03:55 Physical Exam - Physical Exam Skin: pallor, other (No increase in bleeding/bruising.) ICD10 Worksheet Patient Problems: Problems Problem Status Onset Pneumonia Acute Severe sepsis Acute Hyperplasia of prostate Active Atrial fibrillation or flutter Acute
[2016-06-12 13:28] LABS: GLOMERULAR BSMNT MEMBRANE IGG <0.2 U
--- NOTE | 2016-06-12 14:33 | PDINTPN ---
Embalmer/Funeral Director Progress Note Assessment/Plan: Assessment/plan: 85 M with hx COPD, CHF with EF 45, chronic afib, and pacer; admitted 06/08/16 with SOB and PNA after failing outpatient Abx. CT ruled out PE, but showed significant bilateral infiltrates suggestive of ILD. Rx'd with meropenem, doxy, and vanco; and appeared stable AM 06/09/16 on SM. He deteriorated overnight and required intubation early AM 06/10. His INR was found to be 12.8 and was given vitamin K and FFP. His BP was low post-intubation, but responded to blood products and fluid challenge. CXR was much worse diffuse infiltrates. * Respiratory failure with hypoxia- 2/2 PNA which may have been progressing on current abx (and failed outpatient Levaquin). DDx of acute decompensation includes PNA, COPD, CHF, DAH. BNP >13,000 and CXR were compatible with significant cardiac history. Added lasix but treated with multiple blood products so I>>O. FiO2 reduced to 50 and peep to 10, but BUN increased to 90 and Creatinine 1.5, so would hold further diuresis at this point (may need baseline lasix 40 po qd). * COPD- 2/2 above. Continue solumedrol and change albuterol to duoneb since cant get spiriva on vent. Abx include doxy and wagner; vanco dc'd. Other unusual etiologies being pursued, eg Hantavirus, etc. * ILD- seems less likely since patient reports feeling baseline in last 2-3 months. Family reports slow decline over same period. Not stable for biopsy at this time and short term rx would be steroids regardless. Re-eval after recovery * afib- currently 100% paced * chf?- Lasix as above * levy- Jody attempted several times including Coude. Placed by urology 06/10/16 * inr- DIC 2/2 ? Seems late compared to admit date. Heme eval appreciated. Resolving, though fibrinogen 60 without bleeding. Continue to observe * LFT- mildly elevated but falling. * platelet/dic- falling platelets c/w DIC. as above * critical care time 45 minutes 06/11/16 14:43 06/12/16 14:30 Subjective: Mi nor improvement in O2 requirements with diuresis, though i/o net positive 4 liters in last 48 hours with blood products. Objective: Vital Signs Temp Pulse Resp BP Pulse Ox 36.4 C 76 26 H 99/51 L 91 L 06/12/16 00:00 06/12/16 11:43 06/12/16 11:43 06/12/16 05:00 06/12/16 11:43 Microbiology 06/09/16 09:15 - Final Sputum, Expectorated Sputum Culture - Final Angela [facility] Laboratory Results 06/12/16 03:55 06/12/16 08:00 06/11/16 06/12/16 06/13/16 05:59 05:59 05:59 Intake Total 5412 3309 Output Total 1485 2490 Balance 3927 819 PT 24.0 SEC (12.0-15.0) H 06/12/16 03:55 INR 2.13 (0.83-1.16) H 06/12/16 03:55 Physical Exam - Physical Exam General Appearance: no apparent distress, other (sedated on vent) EENT: PERRL/EOMI Neck: supple Respiratory: lungs clear, decreased breath sounds, No respiratory distress, No wheezing Cardiac/Chest: regular rate, rhythm, edema (1-2+) Abdomen: non-tender, soft, No distended Skin: normal color, warm/dry, No rash Lymphatic: no adenopathy Extremities: pedal edema (1-2+) Neuro/Psych: no motor/sensory deficits, No abnormal towerman II-XII ICD10 Worksheet Patient Problems: Problems Problem Status Onset Pneumonia Acute Severe sepsis Acute Hyperplasia of prostate Active Atrial fibrillation or flutter Acute
--- NOTE | 2016-06-12 16:12 | HOSPPROG ---
Hospitalist Progress Note Assessment/Plan: * acute hypoxic respiratory failure * due to COPD exacerbation, pneumonia and pneumonitis * seems to be a little bit better * community-acquired pneumonia versus other * failed outpatient Levaquin * on doxycycline and meropenem currently * unusual causes are being pursued by Infectious Disease * DIC * still ongoing * no transfusion today * thrombocytopenia * status post transfusion * elevated liver function tests * possible due to sepsis versus viral * acute renal failure * a little bit worse than baseline but stable * possible viral pneumonitis versus ILD * COPD exacerbation * continue steroids. * atrial fibrillation status post ablation * hold Coumadin * sepsis * resolving * nonischemic cardiomyopathy with EF of 40%, status post Bi V ICD * hypertension * hyperlipidemia * patient is critically ill with borderline functional status to begin with * difficult Chapin placement * required Urology to place 35 minutes of critical care time spent Subjective: no events. Objective: Vital Signs Temp Pulse Resp BP Pulse Ox 36.4 C 76 26 H 99/51 L 91 L 06/12/16 00:00 06/12/16 11:43 06/12/16 11:43 06/12/16 05:00 06/12/16 11:43 Microbiology 06/09/16 09:15 - Final Sputum, Expectorated Sputum Culture - Final Angela [facility] Laboratory Results 06/12/16 03:55 06/12/16 08:00 06/11/16 06/12/16 06/13/16 05:59 05:59 05:59 Intake Total 5412 3309 Output Total 1485 2490 Balance 3927 819 PT 24.0 SEC (12.0-15.0) H 06/12/16 03:55 INR 2.13 (0.83-1.16) H 06/12/16 03:55 - Physical Exam Constitutional: no apparent distress, appears nourished, not in pain Eyes: anicteric sclera Cardiovascular: regular rate and rhythym, no murmur, rub, or gallop, edema ( 2+ ) Respiratory: no respiratory distress, no rales or rhonchi, clear to auscultation Gastrointestinal: normoactive bowel sounds, soft, non-tender abdomen, no palpable masses Skin: warm Neurologic: other ( sedated) ICD10 Worksheet Patient Problems: Problems Problem Status Onset Pneumonia Acute Severe sepsis Acute Hyperplasia of prostate Active Atrial fibrillation or flutter Acute
[2016-06-12 17:39] LABS: PLATELET COUNT 53 10^3/uL (150-400)
[2016-06-12 17:45] LABS: APTT 36.9 SEC (23.0-38.0); PROTIME(PATIENT) 32.4 SEC (12.0-15.0)
[2016-06-12 18:26] LABS: FIBRINOGEN < 60 mg/dL (214-456)
[2016-06-13] MEDS: INSULIN REGULAR, HUMAN 100 UNIT/1 ML VIAL STANDARD SC SCH ×5 (00:09→23:09)
[2016-06-13] MEDS: methylPREDNISolone SOD SUCC 125 MG/2 ML VIAL IVP SCH ×5 (00:09→23:09)
[2016-06-13 00:44] LABS: PLATELET COUNT 54 10^3/uL (150-400)
[2016-06-13 01:08] LABS: APTT 41.1 SEC (23.0-38.0); PROTIME(PATIENT) 36.5 SEC (12.0-15.0)
[2016-06-13] MEDS: PROPOFOL/EMULSION 100 ML IV SCH ×6 (01:24→21:19)
[2016-06-13] MEDS: fentaNYL/NACL 100 ML IV SCH ×4 (01:25→23:10)
[2016-06-13 01:44] LABS: FIBRINOGEN < 60 mg/dL (214-456)
[2016-06-13] MEDS: IPRATROPIUM HFA INHALER IH SCH ×6 (03:58→23:31)
[2016-06-13] MEDS: ALBUTEROL 60 PUFFS/8 GM MDI IH SCH ×6 (03:58→23:31)
[2016-06-13] MEDS: LEVOTHYROXINE 50 MCG TAB PO SCH (05:49)
[2016-06-13] MEDS: MEROPENEM 1 GM in NS 100 ML IV SCH ×3 (05:53→21:04)
[2016-06-13 08:14] LABS: PLATELET COUNT 55 10^3/uL (150-400)
[2016-06-13 08:22] LABS: ABSOLUTE NRBC COUNT 0.97 10^3/uL (0-0.01); ADD DIFF? YES; ADD MORPH? YES; ADD SCAN? NO; ATYPICAL LYMPHOCYTE FLAG 0 (0-99); FRAGMENT RBC FLAG 20 (0-99); HEMATOCRIT 30.3 % (40.0-51.0); HEMOGLOBIN 9.6 g/dL (13.7-17.5); LEFT SHIFT FLG 20 (0-99); LIPEMIA HEMOLYSIS FLAG 80 (0-99); MEAN CELL HEMOGLOBIN CONCENTR. 31.7 g/dL (32.4-36.7); MEAN CELL VOLUME 94.7 fL (81.5-99.8); PLATELET CLUMPS FLAG 10 (0-99); PLATELET COUNT 53 10^3/uL (150-400); RED CELL DISTRIBUTION WIDTH 16.8 % (11.5-15.2)
[2016-06-13 08:23] LABS: APTT 42.2 SEC (23.0-38.0); INR 4.98 (0.83-1.16); PROTIME(PATIENT) 47.3 SEC (12.0-15.0)
[2016-06-13 08:26] LABS: NRBC-AUTO% 7.2 % (0.0-0.2)
[2016-06-13] MEDS: MULTIVITAMINS W-MINERALS 1 EACH TAB PO SCH (08:57)
[2016-06-13] MEDS: ZINC GLUCONATE 50 MG TAB PO SCH (08:57)
[2016-06-13] MEDS: OMEGA-3 FATTY ACIDS 1,000 MG CAP PO SCH ×2 (08:57→20:16)
[2016-06-13] MEDS: SENNOSIDES/DOCUSATE SODIUM TAB PO SCH ×2 (08:57→20:16)
[2016-06-13] MEDS: DOXYCYCLINE INJ 100 MG in NS 250 ML IV SCH ×2 (08:58→20:16)
[2016-06-13] MEDS: PANTOPRAZOLE SODIUM 40 MG in NS 100 ML IV SCH (08:58)
--- NOTE | 2016-06-13 09:03 | PCMIDPN ---
Assessment/Plan: 85 yo male with COPD remains critically ill with respiratory failure and DIC with unclear infectious ppt, considering possible zoonotic etiology. Ongoing daily improvement with reductions in PEEP and FiO2, 8/50% respectively. Afebrile and continued decline in WBC. --continue doxycycline, meropenem, Cr stable today --await multiple serologic tests, doxycycline covering potential zoonotic sources # Dusky left 3rd toe : suspect low blood flow ischemia from critical illness vs clot, does not appear infected. would lean toward avoiding contrast and get arterial Doppler to assess medications meropenem 1gm IV q8h, #5 doxycycline 100mg IV q12, #5 microbiology Blood cultures 06/08, 06/10 2 sets each day: NGTD Urine Legionella antigen negative Respiratory virus PCR panel negative Influenza by DFA negative Hanta pending tularemia Ab pending cocci pending q fever pending p-ANCA, c-ANCA pending Subjective: 3rd toe on L foot blue overnight Objective: Vital Signs Temp Pulse Resp BP Pulse Ox 36.8 C 83 26 H 112/66 95 06/13/16 04:00 06/13/16 08:10 06/13/16 05:58 06/13/16 06:01 06/13/16 08:10 Laboratory Results 06/13/16 08:15 06/12/16 06/13/16 06/14/16 05:59 05:59 05:59 Intake Total 3309 2637 Output Total 2490 1125 Balance 819 1512 AF Gen: sedated on Vent, HEENT: OGT, ETT, dry MMM, ecchymosis posterior pharynx Neck supple RUE PICC C/D/I +anasarca, scattered ecchymosis CV RRR Chest: course bs on vent Abd: decrease bowel sounds, soft Neuro sedated : scrotal edema, lockett skin/Ext :+anasarca, scattered ecchymosis, no other rashes ICD10 Worksheet Patient Problems: Problems Problem Status Onset Pneumonia Acute Severe sepsis Acute Hyperplasia of prostate Active Atrial fibrillation or flutter Acute
[2016-06-13 09:15] LABS: ALANINE AMINOTRANSFERASE 116 IU/L (21-72); ALBUMIN 3.2 g/dL (3.5-5.0); ALKALINE PHOSPHATASE 69 IU/L (38-126); ANION GAP 10 mEq/L (8-16); ASPARTATE AMINOTRANSFERASE 54 IU/L (17-59); BILIRUBIN,TOTAL 2.2 mg/dL (0.1-1.4); CALCIUM 8.3 mg/dL (8.5-10.4); CARBON DIOXIDE 26 mEq/l (22-31); CHLORIDE 113 mEq/L (97-110); CREATININE 1.5 mg/dL (0.7-1.3); GLOMERULAR FILTRATION RATE 45; GLUCOSE 250 mg/dL (70-100); SODIUM 149 mEq/L (134-144)
[2016-06-13 09:24] LABS: BILIRUBIN-CONJUGATED 1.6 mg/dL (0.0-0.5); BILIRUBIN-UNCONJUGATED 0.6 mg/dL (0.0-1.1)
[2016-06-13 09:27] LABS: LARGE PLATELETS PRESENT; MICROCYTES 3+; PLATELET ESTIMATE DECREASED (ADEQ); POLYCHROMASIA 3+
[2016-06-13 09:28] LABS: SMUDGE CELLS 1+
[2016-06-13 09:29] LABS: KERATOCYTES 1+; SCHISTOCYTES 3+
--- NOTE | 2016-06-13 12:59 | HOSPPROG ---
Hospitalist Progress Note Assessment/Plan: # pulmonary - intubated - persistent infiltrates, treating for infection with merrem, doxy; also consider other etiologies - R sided ptx with subQ air - place CT today per surgery - underlying COPD, possible underlying ILD # DIC/hematologic abnormalities - today he has a blue/cold L toe concerning for embolic disease - appreciate heme - unclear role of heparin? - getting FFP/cryo today # a-fib - paced # elevated LFTs - better but still elevated bili # hyperNa - incr free H2O flushes # nutrition - TF # CECIL - likely hemodynamic - follow daily, no nephrotoxins # DM2 with hyperglycemia - start glargine ## 40 minutes of floor critical care time Subjective: intubated, sedated, chest CT shows large ptx Objective: Vital Signs Temp Pulse Resp BP Pulse Ox 36.8 C 76 25 H 116/62 94 06/13/16 12:00 06/13/16 12:00 06/13/16 12:00 06/13/16 12:00 06/13/16 12:00 Laboratory Results 06/13/16 08:15 06/13/16 08:15 06/12/16 06/13/16 06/14/16 05:59 05:59 05:59 Intake Total 3309 2637 Output Total 2490 1125 Balance 819 1512 PT 47.3 SEC (12.0-15.0) H D 06/13/16 08:00 INR 4.98 (0.83-1.16) H 06/13/16 08:00 intubated, sedated ETT in place PICC line with mild oozing abd S, NT, ND, no HSM respirs coarse, decreased R sided, diffuse rhonchi RRR, no MRG ICD10 Worksheet Patient Problems: Problems Problem Status Onset Hyperplasia of prostate Active Atrial fibrillation or flutter Acute Pneumonia Acute Severe sepsis Acute
--- NOTE | 2016-06-13 13:33 | GPROG ---
HEMATOLOGY PROGRESS NOTE ASSESSMENT: 1. Severe pneumonia. 2. Respiratory failure. 3. Thrombocytopenia. 4. Severe hypofibrinogenemia with elevated INR. 5. Chronic obstructive pulmonary disease. 6. Atrial fibrillation. The patient is currently intubated and not responsive. Blood pressure 116/62, respiratory rate 25, O2 saturation 94%. Ventilated lungs show a few scattered rhonchi. Abdomen is benign. The left 3rd toe is a bit dusky. Dorsalis pedis pulses palpable on that side. White count 13,000, hemoglobin 9.6, hematocrit 30.3, platelets 53,000. Schistocytes are 3+, keratocytes 1+. Creatinine is 1.5. INR is 4.98 and rising D-dimer greater than 20. Fibrinogen less than 60. 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 He has a pneumothorax and is going to have a chest tube today, and will have replacement with fibrinogen and cryoprecipitate. We will send an [id number], although I think TTP is unlikely. We will also check reticulocyte count. Nucleated RBCs are noted on his peripheral smear. /[id number]/MODL MTDD
--- NOTE | 2016-06-13 13:36 | PDINTPN ---
Processor Inspector Progress Note Assessment/Plan: Assessment/plan: 85 M with hx COPD, CHF with EF 45, chronic afib, and pacer; admitted 06/08/16 with SOB and PNA after failing outpatient Abx. CT ruled out PE, but showed significant bilateral infiltrates suggestive of ILD. Rx'd with meropenem, doxy, and vanco; and appeared stable AM 06/09/16 on SM. He deteriorated overnight and required intubation early AM 06/10. His INR was found to be 12.8 and was given vitamin K and FFP. His BP was low post-intubation, but responded to blood products and fluid challenge. CXR was much worse diffuse infiltrates. * Respiratory failure with hypoxia- 2/2 PNA which may have been progressing on current abx (and failed outpatient Levaquin). DDx of acute decompensation includes PNA, COPD, CHF, DAH. BNP >13,000 and CXR were compatible with significant cardiac history. Added lasix but treated with multiple blood products so I>>O. * PTX- found on chest CT today with substantial subcutaneous air. Likely related to positive pressure (plateau has been <30-35) in setting of severe COPD superimposed on PNA. Will get chest tube by surgery after blood products to correct coagulopathy. * COPD- 2/2 above. Continue solumedrol and change albuterol to duoneb since cant get spiriva on vent. Abx include doxy and wagner; vanco dc'd. Other unusual etiologies being pursued, eg Hantavirus, etc. * ILD- seems less likely since patient reports feeling baseline in last 2-3 months. Family reports slow decline over same period. Not stable for biopsy at this time and short term rx would be steroids regardless. Re-eval after recovery * afib- currently 100% paced * chf?- Lasix as above * lockett- Rn attempted several times including Coude. Placed by urology 06/10/16 * inr- DIC 2/2 ? Seems late compared to admit date. Continues to date despite stable hemodynamics. Replacing FFP/cryo at this time for procedure. Etiology still a bit uncertain. No evidence of malignancy in abdomen. * LFT- mildly elevated but falling. * platelet/dic- falling platelets c/w DIC. as above * critical care time 45 minutes Subjective: Remains stable overnight, sedated on vent. Objective: Vital Signs Temp Pulse Resp BP Pulse Ox 36.8 C 77 25 H 116/62 93 06/13/16 12:00 06/13/16 13:00 06/13/16 13:00 06/13/16 13:00 06/13/16 13:00 Laboratory Results 06/13/16 08:15 06/13/16 08:15 06/12/16 06/13/16 06/14/16 05:59 05:59 05:59 Intake Total 3309 2637 Output Total 2490 1125 Balance 819 1512 PT 47.3 SEC (12.0-15.0) H D 06/13/16 08:00 INR 4.98 (0.83-1.16) H 06/13/16 08:00 Physical Exam - Physical Exam General Appearance: no apparent distress, other (sedated on vent) EENT: PERRL/EOMI Neck: supple Respiratory: decreased breath sounds (but equal), rales (few), No wheezing Cardiac/Chest: normal peripheral pulses, regular rate, rhythm, No edema Abdomen: normal bowel sounds, non-tender, soft Skin: normal color, No rash Lymphatic: no adenopathy Extremities: pedal edema, other (blue toe on left foot, cool) Neuro/Psych: no motor/sensory deficits, No abnormal helpdesk specialist II-XII ICD10 Worksheet Patient Problems: Problems Problem Status Onset Pneumonia Acute Severe sepsis Acute Hyperplasia of prostate Active Atrial fibrillation or flutter Acute
[2016-06-13 13:46] LABS: HEMATOCRIT 30.4 % (40.0-51.0)
[2016-06-13] MEDS: INSULIN GLARGINE 100 UNITS/ML SYRINGE SC SCH (13:48)
[2016-06-13 14:57] LABS: c-ANCA Negative (Negative); p-ANCA Negative (Negative)
[2016-06-13 17:30] LABS: PLATELET COUNT 47 10^3/uL (150-400)
[2016-06-13 18:21] LABS: APTT 32.2 SEC (23.0-38.0); INR 2.03 (0.83-1.16); PROTIME(PATIENT) 23.1 SEC (12.0-15.0)
[2016-06-13 18:23] LABS: FIBRINOGEN < 60 mg/dL (214-456)
[2016-06-13 18:30] LABS: FIBRINOGEN 79 mg/dL (214-456)
--- NOTE | 2016-06-13 19:29 | GOP ---
DATE OF OPERATION: 06/13/2016 SURGEON: Alfredo Jensen MD MARKETING UNDERWRITER: None. ANESTHESIA: Local with IV. PREOPERATIVE DIAGNOSIS: Right tension pneumothorax. POSTOPERATIVE DIAGNOSIS: Right tension pneumothorax. PROCEDURE PERFORMED: Right chest tube thoracostomy placement. FINDINGS: Large domínguez of air upon entering the chest cavity. A 24-Afghan chest tube successfully pl aced at 14 cm at the skin attached to Pleur-evac without air leak, tidaling well. ESTIMATED BLOOD LOSS: 3 cc. DESCRIPTION OF PROCEDURE: As the patient is obtunded, his son was successfully consented. After co nsenting and explaining the risks, benefits, and alternatives, a World [employer] time-out was performed. The right chest was then prepped and draped in typical sterile fashion. I made an i ncision in the inframammary crease at the approximate 5th intercostal space at the anterior axillary line. I tracked this up 1 intercostal space and entered the chest cavity bluntly. There was a lar ge domínguez of air. Through this intercostal space, I inserted a 24-Afghan straight chest tube, had con tinued output, good tidaling without air leak. I attached it to the skin with a silk suture and the n to the Pleur-Evac. A sterile dressing was placed. The patient tolerated the procedure well with no intraprocedural complications. DRAINS: A 24-Afghan straight chest tube to Pleur-evac suction. /[id number]/MODL
--- NOTE | 2016-06-13 19:38 | GCON ---
DATE OF CONSULTATION: 06/13/2016 CHIEF COMPLAINT: Bilateral pneumothoraces, right greater than left, question tension. HISTORY OF PRESENT ILLNESS: This is an 85-year-old male, currently in the intensive care unit, admi tted to the medical service with multiple medical problems. In short, he was admitted on May 21 with shortness of breath and pneumonia after failing outpatient antibiotic treatment. Imaging a t that time showed significant bilateral infiltrates, suggestive of interstitial lung disease. He w as initially treated with IV antibiotics, but deteriorated, requiring intubation on the . At th at time, his coags were checked, and his INR was found to be elevated at almost 13. He has subseque ntly been in critical status in the intensive care unit. It is unclear what is causing his DIC. As an adjunct, Dr. Pereira earlier today obtained a CT scan of his chest looking for possible cancer. N o new masses were found, however, a significant right-sided pneumothorax with some tracheal deviatio n concerning for tension was identified. On my evaluation, the patient is intubated, sedated, unres ponsive. He does have some crepitus to the right chest but is otherwise stable. I discussed the ca se with his son who has been at the bedside. PAST MEDICAL HISTORY: COPD, CHF, chronic atrial fibrillation, pacer-dependent, pneumonia, respirato ry failure, interstitial lung disease and DIC. PAST SURGICAL HISTORY: Obtained from the chart and family reports is significant for none. REVIEW OF SYSTEMS: Unobtainable. ALLERGIES: Penicillin and sulfa. FAMILY HISTORY: No definite lung disease. PHYSICAL EXAM: VITAL SIGNS: Temperature today not obtained, blood pressure 109/55, heart rate 76. He is currently on the ventilator with an FiO2 of 50% and positive-pressure ventilation. GENERAL: He is intubated, sedated and unresponsive. CV: He is normotensive and not tachycardic. CHEST: H e has crepitus on the right side. His right-sided lung sounds are distant. His left-sided lung neha nds are distant, however, not as much, without crepitus. His abdomen is soft and nondistended. His extremities are 2+ pitting edema. IMAGING: CT scan performed today of the chest, which shows [id number] right and tiny left pn eumothoraces with pneumomediastinum and slightly leftward mediastinal deviation. LABORATORY DATA: Last coags earlier today show an INR of 5, a fibrinogen of less than 60 and a D-di caroline of greater than 20. ASSESSMENT AND PLAN: An 85-year-old critically ill male with right-sided pneumothorax with possible tension physiology and underlying DIC of which the source is unknown. I had an extensive conversat ion with the son today. I do feel that given the possibility of tension and the size of the pneumot horax on the right that he would benefit from tube thoracostomy placement. I did relay my concerns to him that he has diffuse bleeding coagulopathy and an invasive procedure such that a chest tube pl acement could cause worsening bleeding, possibly leading to a surgical intervention, which I do not think he would tolerate and/or . I was very yfn with him in this discussion and that we woul d attempt the chest tube placement, and all of the above could happen. We will plan to give him brady e fresh frozen plasma and replace his clotting factor so that we have a best opportunity to place th e tube with as well corrected clotting parameters as we can, but anticipate that he may need a trans fusion should he bleed. /[id number]/MODL
[2016-06-14 01:12] LABS: INR 1.98 (0.83-1.16); PROTIME(PATIENT) 22.6 SEC (12.0-15.0)
[2016-06-14 01:13] LABS: APTT 29.4 SEC (23.0-38.0)
[2016-06-14 01:40] LABS: FIBRINOGEN 83 mg/dL (214-456)
[2016-06-14 01:42] LABS: PLATELET COUNT 53 10^3/uL (150-400)
[2016-06-14] MEDS: PROPOFOL/EMULSION 100 ML IV SCH ×4 (03:51→16:40)
[2016-06-14 03:53] LABS: ABSOLUTE NRBC COUNT 0.39 10^3/uL (0-0.01); ADD DIFF? YES; ADD MORPH? YES; ADD SCAN? NO; ATYPICAL LYMPHOCYTE FLAG 0 (0-99); FRAGMENT RBC FLAG 20 (0-99); HEMATOCRIT 29.9 % (40.0-51.0); HEMOGLOBIN 9.2 g/dL (13.7-17.5); LEFT SHIFT FLG 20 (0-99); LIPEMIA HEMOLYSIS FLAG 80 (0-99); MEAN CELL HEMOGLOBIN 29.9 pg (27.9-34.1); MEAN CELL HEMOGLOBIN CONCENTR. 30.8 g/dL (32.4-36.7); MEAN CELL VOLUME 97.1 fL (81.5-99.8); PLATELET CLUMPS FLAG 0 (0-99); PLATELET COUNT 54 10^3/uL (150-400); RED BLOOD CELL COUNT 3.08 10^6/uL (4.40-6.38); RED CELL DISTRIBUTION WIDTH 17.5 % (11.5-15.2)
[2016-06-14 03:55] LABS: NRBC-AUTO% 2.9 % (0.0-0.2)
[2016-06-14] MEDS: ALBUTEROL 60 PUFFS/8 GM MDI IH SCH ×5 (04:10→20:13)
[2016-06-14] MEDS: IPRATROPIUM HFA INHALER IH SCH ×5 (04:10→20:13)
[2016-06-14 04:19] LABS: ALANINE AMINOTRANSFERASE 109 IU/L (21-72); ALBUMIN 3.2 g/dL (3.5-5.0); ALKALINE PHOSPHATASE 70 IU/L (38-126); ANION GAP 9 mEq/L (8-16); ASPARTATE AMINOTRANSFERASE 61 IU/L (17-59); BILIRUBIN,TOTAL 2.4 mg/dL (0.1-1.4); CALCIUM 8.7 mg/dL (8.5-10.4); CARBON DIOXIDE 29 mEq/l (22-31); CHLORIDE 116 mEq/L (97-110); CREATININE 1.1 mg/dL (0.7-1.3); GLOMERULAR FILTRATION RATE > 60; GLUCOSE 209 mg/dL (70-100); POTASSIUM 4.9 mEq/L (3.5-5.2); SODIUM 154 mEq/L (134-144)
[2016-06-14 04:30] LABS: ASSIST CONTROL YES; BASE EXCESS 0.4 mEq/L (-2.5-2.5); BICARBONATE 26 mEq/L (22-26); END TIDAL CO2 28; MEASURED OXYGEN SATURATION 96 % (92-95); O2 CONCENTRATIION 50 % (0-100); P/F RATIO 172 RATIO; PCO2 52 mmHg (34-38); PO2 86 mmHg (65-75); TCO2 28 mEq/L (23-27)
[2016-06-14 04:31] LABS: TOTAL RATE 30
[2016-06-14 04:36] LABS: BILIRUBIN-CONJUGATED 1.9 mg/dL (0.0-0.5); BILIRUBIN-UNCONJUGATED 0.5 mg/dL (0.0-1.1)
[2016-06-14 04:50] LABS: MACROCYTES 1+; MICROCYTES 2+; POLYCHROMASIA 2+
[2016-06-14 04:51] LABS: HYPOCHROMIA 1+; KERATOCYTES 1+; LARGE PLATELETS PRESENT; PLATELET ESTIMATE DECREASED (ADEQ); SCHISTOCYTES 3+
[2016-06-14] MEDS: LEVOTHYROXINE 50 MCG TAB PO SCH (05:01)
[2016-06-14] MEDS: MEROPENEM 1 GM in NS 100 ML IV SCH ×3 (05:01→21:17)
[2016-06-14] MEDS: INSULIN REGULAR, HUMAN 100 UNIT/1 ML VIAL STANDARD SC SCH ×4 (05:02→23:17)
[2016-06-14] MEDS: methylPREDNISolone SOD SUCC 125 MG/2 ML VIAL IVP SCH ×4 (05:02→23:19)
[2016-06-14] MEDS: fentaNYL/NACL 100 ML IV SCH ×2 (07:07→13:34)
[2016-06-14 07:12] LABS: INTERPRETATION See Comments
--- NOTE | 2016-06-14 09:13 | SOAPPROG ---
SOAP Progress Note Assessment/Plan: Assessment/Plan - POD#1 s/p R CT placement - CXR this AM shows resolution of residual ptx. - Output has been minimal, tidaling well without air leak. Would keep to suction addl 24hrs, water seal tomorrow, 06/14/16 09:12 Subjective: Intubated, sedated. Objective: Vital Signs Temp Pulse Resp BP Pulse Ox 36.6 C 76 27 H 115/58 L 96 06/14/16 07:00 06/14/16 08:00 06/14/16 08:00 06/14/16 08:00 06/14/16 08:00 Laboratory Results 06/14/16 03:45 06/14/16 03:45 06/13/16 06/14/16 06/15/16 05:59 05:59 05:59 Intake Total 2637 4605 Output Total 1125 1920 Balance 1512 2685 PT 22.6 SEC (12.0-15.0) H 06/14/16 00:40 INR 1.98 (0.83-1.16) H 06/14/16 00:40 ICD10 Worksheet Patient Problems: Problems Problem Status Onset Pneumonia Acute Severe sepsis Acute Hyperplasia of prostate Active Atrial fibrillation or flutter Acute
[2016-06-14] MEDS: ZINC GLUCONATE 50 MG TAB PO SCH (09:45)
[2016-06-14] MEDS: SENNOSIDES/DOCUSATE SODIUM TAB PO SCH ×2 (09:45→20:07)
[2016-06-14] MEDS: OMEGA-3 FATTY ACIDS 1,000 MG CAP PO SCH ×2 (09:45→20:07)
[2016-06-14] MEDS: INSULIN GLARGINE 100 UNITS/ML SYRINGE SC SCH (09:45)
[2016-06-14] MEDS: MULTIVITAMINS W-MINERALS 1 EACH TAB PO SCH (09:45)
[2016-06-14] MEDS: PANTOPRAZOLE SODIUM 40 MG in NS 100 ML IV SCH (09:45)
[2016-06-14] MEDS ORDERED: INSULIN GLARGINE 100 UNITS/ML SYRINGE SC SCH (09:51)
[2016-06-14] MEDS ORDERED: D5W 1,000 ML IV SCH (10:00)
--- NOTE | 2016-06-14 10:24 | PCMIDPN ---
Assessment/Plan: 85 yo male with COPD remains critically ill with respiratory failure and DIC with unclear ppt, possible infection (considering possible zoonotic etiology), CT scan yesterday did not suggest underlying malignancy. Continued slight daily improvement with reductions in PEEP to 5 Fio2 stable @ 50%. Afebrile and WBC stable today. More serologies return negative, see below. Hanta, tularemia , cocci pending. Improvement without Rx cocci makes this less likely --continue doxycycline, meropenem, Cr down to 1.1 today --await multiple serologic tests, doxycycline covering potential zoonotic sources # Dusky left 2nd toe : suspect low blood flow ischemia from critical illness vs clot, does not appear infected. would lean toward avoiding contrast and get arterial Doppler to assess medications meropenem 1gm IV q8h, #6 doxycycline 100mg IV q12, #6 microbiology Blood cultures 06/08 (2) neg Blood cx 06/10 (2): NGTD Urine Legionella antigen negative Respiratory virus PCR panel negative Influenza by DFA negative Hanta pending tularemia Ab pending cocci pending q fever negative p-ANCA, c-ANCA negative 06/14/16 10:24 Subjective: Incidental Pneumothorax identified on CT scan yesterday, CT were placed no other events no diarrhea, no pressors Objective: Vital Signs Temp Pulse Resp BP Pulse Ox 36.6 C 76 27 H 115/58 L 89 L 06/14/16 07:00 06/14/16 08:35 06/14/16 08:00 06/14/16 08:00 06/14/16 08:35 Laboratory Results 06/14/16 03:45 06/14/16 03:45 06/13/16 06/14/16 06/15/16 05:59 05:59 05:59 Intake Total 2637 4605 Output Total 1125 1920 Balance 1512 2685 AF Gen: sedated on Vent, HEENT: OGT on TF, ETT, dry MMM/dried blood, ecchymosis posterior pharynx Neck supple RUE PICC C/D/I +anasarca, scattered ecchymosis CV RRR Chest: course bs on vent Abd: decrease bowel sounds, soft Neuro sedated : scrotal edema, lockett skin/Ext :+anasarca, scattered ecchymosis, no other rashes , L 2nd toe dusky, stable today ICD10 Worksheet Patient Problems: Problems Problem Status Onset Pneumonia Acute Severe sepsis Acute Hyperplasia of prostate Active Atrial fibrillation or flutter Acute
[2016-06-14] MEDS ORDERED: INSULIN GLARGINE 100 UNITS/ML SYRINGE SC ONE (10:30)
[2016-06-14] MEDS: DOXYCYCLINE INJ 100 MG in NS 250 ML IV SCH ×2 (10:43→20:07)
--- NOTE | 2016-06-14 11:38 | HOSPPROG ---
Hospitalist Progress Note Assessment/Plan: # pulmonary - intubated, stable on vent - persistent infiltrates, treating for infection with merrem, doxy; also consider other etiologies - R sided ptx with subQ air - s/p CT yesterday by gen surg - underlying COPD, possible underlying ILD # DIC/hematologic abnormalities - he has a blue/cold L toe concerning for embolic disease - appreciate heme - got FFP/cryo today - this migdalia be the reason for lab improvement today # a-fib - paced # elevated LFTs - better but still elevated bili # hyperNa - incr free H2O flushes, add D5W bolus today # nutrition - TF # CECIL - likely hemodynamic - follow daily, no nephrotoxins # DM2 with hyperglycemia - incr glargine 10U -> 20U today ## 35 minutes of floor critical care time Subjective: no signifncant change overnight Objective: Vital Signs Temp Pulse Resp BP Pulse Ox 36.6 C 76 28 H 119/60 96 06/14/16 07:00 06/14/16 11:00 06/14/16 11:00 06/14/16 11:00 06/14/16 11:00 Laboratory Results 06/14/16 03:45 06/14/16 03:45 06/13/16 06/14/16 06/15/16 05:59 05:59 05:59 Intake Total 2637 4605 Output Total 1125 1920 Balance 1512 2685 PT 22.6 SEC (12.0-15.0) H 06/14/16 00:40 INR 1.98 (0.83-1.16) H 06/14/16 00:40 Vitals reviewed Pleasant, no acute distress ET tube Regular rate and rhythm, no murmurs rubs or gallops on vent, diffuse rales/rhonchi, no diminished BS, coarse throughout Abdomen soft nontender, nondistended, no hepatosplenomegaly ICD10 Worksheet Patient Problems: Problems Problem Status Onset Hyperplasia of prostate Active Atrial fibrillation or flutter Acute Pneumonia Acute Severe sepsis Acute
--- NOTE | 2016-06-14 13:08 | SOAPPROG ---
SOAP Progress Note Assessment/Plan: Assessment: 1. Respiratory failure, PNA 2. DIC, parameters better after sig factor yesterday prior to chest tube placement, fibrinogen 83, inr 1.96, plts 54 3.pneumothorax 4. possible ischemic left toe 5. cool r hand with good radial pulse Plan:Will continue to follow, no blood products today 06/14/16 12:59 Subjective: Intubated Objective: Vital Signs Temp Pulse Resp BP Pulse Ox 97.6 F 83 30 H 115/61 96 06/14/16 12:18 06/14/16 12:18 06/14/16 12:18 06/14/16 12:18 06/14/16 12:18 Laboratory Results 06/14/16 03:45 06/14/16 03:45 06/13/16 06/14/16 06/15/16 05:59 05:59 05:59 Intake Total 2637 4605 Output Total 1125 1920 Balance 1512 2685 PT 22.6 SEC (12.0-15.0) H 06/14/16 00:40 INR 1.98 (0.83-1.16) H 06/14/16 00:40 Physical Exam - Physical Exam General Appearance: unresponsive Respiratory: rhonchi Abdomen: normal bowel sounds, non-tender Extremities: other (left hand cool good radial pulse) ICD10 Worksheet Patient Problems: Problems Problem Status Onset Pneumonia Acute Severe sepsis Acute Hyperplasia of prostate Active Atrial fibrillation or flutter Acute
--- NOTE | 2016-06-14 13:17 | PDINTPN ---
Squaring Shear Operator Progress Note Assessment/Plan: Assessment/plan: 85 M with hx COPD, CHF with EF 45, chronic afib, and pacer; admitted 06/08/16 with SOB and PNA after failing outpatient Abx. CT ruled out PE, but showed significant bilateral infiltrates suggestive of ILD. Rx'd with meropenem, doxy, and vanco; and appeared stable AM 06/09/16 on SM. He deteriorated overnight and required intubation early AM 06/10. His INR was found to be 12.8 and was given vitamin K and FFP. His BP was low post-intubation, but responded to blood products and fluid challenge. CXR was much worse diffuse infiltrates. * Respiratory failure with hypoxia and now hypercapnia- 2/2 PNA which may have been progressing on current abx (and failed outpatient Levaquin). DDx of acute decompensation includes PNA, COPD, CHF, DAH. BNP >13,000 and CXR were compatible with significant cardiac history. Improved minimally with lasix and chest tube 06/13, but remains on 50% and 5 peep. pCO2 has been rising to mid 50' s today- he has not shown CO2 retention previously- likely as a result of drop in delivered TV from 600 to 470 on 06/10. (IBW=75 kg. 6 ml/kg= 450; 8 ml/kg= 600 ; 10 ml/kg= 750). Increase TV and fu abg in am. Not truly ARDS at this point IMHO. Vent day# 5. He may eventually need trach depending on course and fmaily wishes for supervisor intermediates aggressive care. I have not raised this issue publicly just yet. * PTX- found on chest CT 06/13 with substantial subcutaneous air. Likely related to positive pressure (plateau has been <30-35) in setting of severe COPD superimposed on PNA. No air leak today and resolved on CXR * COPD- 2/2 above. Continue solumedrol and change albuterol to duoneb since cant get spiriva on vent. Abx include doxy and wagner; vanco dc'd. Other unusual etiologies being pursued, eg Hantavirus, etc. * ILD?- seems less likely since patient reports feeling baseline in last 2-3 months, eg acuity seems inconsistent. Family reports slow decline over same period. Not stable for biopsy at this time and short term rx would be steroids regardless. Re-eval after recovery * afib- currently 100% paced * chf-echo 06/10/16 shows EF 40-45% and BNP was 13,900 on 06/10 hence trial of diuresis with only modest effect. * lockett- Rn attempted several times including Coude. Placed by urology 06/10/16. Adequate UOP * inr- DIC 05/21 ? Seems late compared to admit date, but may have been brewing prior to admission. Have discussed with hematology in detail. No evidence of malignancy in abdomen. Appears better today, but transfused blood products . Continue close monitoring, but dont feel additional replacement needed at this time. * LFT- mildly elevated but falling. * platelet/dic- falling platelets c/w DIC. as above * BUN climbing at 111 but creatinine only 1.1 and UOP adequate. Likely from catabolic state including steroids. Hemolysis also probable contributor. critical care time at least 45 minutes 06/14/16 12:58 Subjective: Stable overnight, s/p right chest tube Objective: Vital Signs Temp Pulse Resp BP Pulse Ox 36.4 C 83 30 H 115/61 96 06/14/16 12:18 06/14/16 12:18 06/14/16 12:18 06/14/16 12:18 06/14/16 12:18 Laboratory Results 06/14/16 03:45 06/14/16 03:45 06/13/16 06/14/16 06/15/16 05:59 05:59 05:59 Intake Total 2637 4605 Output Total 1125 1920 Balance 1512 2685 PT 22.6 SEC (12.0-15.0) H 06/14/16 00:40 INR 1.98 (0.83-1.16) H 06/14/16 00:40 Physical Exam - Physical Exam General Appearance: no apparent distress, other (sedated on vent) EENT: PERRL/EOMI, normal ENT inspection Neck: supple Respiratory: lungs clear, decreased breath sounds, other (chest tube site OK), No respiratory distress Cardiac/Chest: regular rate, rhythm (paced), No edema, No JVD Abdomen: normal bowel sounds, soft, No distended Skin: normal color, warm/dry, No rash Lymphatic: no adenopathy Extremities: No pedal edema Neuro/Psych: other (sedtaed), No abnormal cylinder tester II-XII ICD10 Worksheet Patient Problems: Problems Problem Status Onset Pneumonia Acute Severe sepsis Acute Hyperplasia of prostate Active Atrial fibrillation or flutter Acute
[2016-06-14 20:28] LABS: BASE EXCESS 0.8 mEq/L (-2.5-2.5); BICARBONATE 25 mEq/L (22-26); CPAP YES; MEASURED OXYGEN SATURATION 96 % (92-95); PCO2 43 mmHg (34-38); PO2 81 mmHg (65-75); TCO2 27 mEq/L (23-27)
[2016-06-14 20:29] LABS: END TIDAL CO2 27; O2 CONCENTRATIION 50 % (0-100); P/F RATIO 162 RATIO; PATIENT RATE 16; PRESSURE SUPPORT 10
[2016-06-15] MEDS: IPRATROPIUM HFA INHALER IH SCH ×7 (00:04→23:53)
[2016-06-15] MEDS: ALBUTEROL 60 PUFFS/8 GM MDI IH SCH ×7 (00:04→23:53)
[2016-06-15 04:51] LABS: ABSOLUTE NRBC COUNT 0.43 10^3/uL (0-0.01); ADD DIFF? YES; ADD SCAN? NO; ATYPICAL LYMPHOCYTE FLAG 0 (0-99); FRAGMENT RBC FLAG 20 (0-99); HEMATOCRIT 32.6 % (40.0-51.0); HEMOGLOBIN 10.4 g/dL (13.7-17.5); LEFT SHIFT FLG 50 (0-99); LIPEMIA HEMOLYSIS FLAG 80 (0-99); MEAN CELL HEMOGLOBIN 30.6 pg (27.9-34.1); MEAN CELL HEMOGLOBIN CONCENTR. 31.9 g/dL (32.4-36.7); MEAN CELL VOLUME 95.9 fL (81.5-99.8); PLATELET CLUMPS FLAG 0 (0-99); PLATELET COUNT 70 10^3/uL (150-400); RED CELL DISTRIBUTION WIDTH 18.2 % (11.5-15.2)
[2016-06-15] MEDS: methylPREDNISolone SOD SUCC 125 MG/2 ML VIAL IVP SCH ×4 (05:10→23:08)
[2016-06-15] MEDS: MEROPENEM 1 GM in NS 100 ML IV SCH ×3 (05:10→21:54)
[2016-06-15 05:12] LABS: ANION GAP 8 mEq/L (8-16); CALCIUM 8.9 mg/dL (8.5-10.4); CARBON DIOXIDE 30 mEq/l (22-31); CHLORIDE 117 mEq/L (97-110); CREATININE 0.9 mg/dL (0.7-1.3); GLOMERULAR FILTRATION RATE > 60; GLUCOSE 151 mg/dL (70-100); POTASSIUM 5.2 mEq/L (3.5-5.2); SODIUM 155 mEq/L (134-144)
[2016-06-15] MEDS: LEVOTHYROXINE 50 MCG TAB PO SCH (05:12)
[2016-06-15 05:15] LABS: NRBC-AUTO% 1.8 % (0.0-0.2)
[2016-06-15 05:16] LABS: ADD MORPH? NO
[2016-06-15] MEDS: INSULIN REGULAR, HUMAN 100 UNIT/1 ML VIAL STANDARD SC SCH ×4 (05:17→23:08)
[2016-06-15 05:44] LABS: HYPOCHROMIA 1+; MACROCYTES 2+; MICROCYTES 1+; PLATELET ESTIMATE DECREASED (ADEQ); POLYCHROMASIA 2+
[2016-06-15 05:45] LABS: KERATOCYTES 1+; LARGE PLATELETS PRESENT; SCHISTOCYTES 3+; TOXIC VACUOLIZATION PRESENT
[2016-06-15] MEDS: D5W 1,000 ML IV SCH ×3 (05:59→21:55)
[2016-06-15 06:10] LABS: BASE EXCESS 2.5 mEq/L (-2.5-2.5); BICARBONATE 26 mEq/L (22-26); MEASURED OXYGEN SATURATION 97 % (92-95); PCO2 39 mmHg (34-38); PO2 82 mmHg (65-75); TCO2 27 mEq/L (23-27)
[2016-06-15 06:11] LABS: CPAP YES; END TIDAL CO2 26; O2 CONCENTRATIION 50 % (0-100); P/F RATIO 164 RATIO; PATIENT RATE 19; PRESSURE SUPPORT 15
[2016-06-15] MEDS: ZINC GLUCONATE 50 MG TAB PO SCH (09:25)
[2016-06-15] MEDS: DOXYCYCLINE INJ 100 MG in NS 250 ML IV SCH ×2 (09:27→20:16)
[2016-06-15] MEDS: INSULIN GLARGINE 100 UNITS/ML SYRINGE SC SCH (09:29)
[2016-06-15] MEDS: MULTIVITAMINS W-MINERALS 1 EACH TAB PO SCH (09:30)
[2016-06-15] MEDS: OMEGA-3 FATTY ACIDS 1,000 MG CAP PO SCH (09:30)
[2016-06-15] MEDS: SENNOSIDES/DOCUSATE SODIUM TAB PO SCH (09:30)
[2016-06-15] MEDS: PANTOPRAZOLE SODIUM 40 MG in NS 100 ML IV SCH (09:32)
--- NOTE | 2016-06-15 09:34 | SOAPPROG ---
SOAP Progress Note Assessment/Plan: Assessment/Plan - POD#2 s/p R CT placement - CXR shows persistent small apical ptx, will cont suction. Output mininal and tidaling well without air leak 06/14/16 09:12 06/15/16 09:33 Subjective: Intubated, unresponsive off sedation Objective: Vital Signs Temp Pulse Resp BP Pulse Ox 36.8 C 80 24 H 162/76 H 93 06/15/16 07:00 06/15/16 08:27 06/15/16 08:27 06/15/16 08:00 06/15/16 08:27 Laboratory Results 06/15/16 04:25 06/15/16 04:25 06/14/16 06/15/16 06/16/16 05:59 05:59 05:59 Intake Total 4605 4494 Output Total 1920 2665 280 Balance 2685 1829 -280 PT 22.6 SEC (12.0-15.0) H 06/14/16 00:40 INR 1.98 (0.83-1.16) H 06/14/16 00:40 ICD10 Worksheet Patient Problems: Problems Problem Status Onset Pneumonia Acute Severe sepsis Acute Hyperplasia of prostate Active Atrial fibrillation or flutter Acute
--- NOTE | 2016-06-15 09:49 | PCMIDPN ---
Assessment/Plan: Assessment/Plan: * Respiratory failure with bilateral pulmonary infiltrates with DIC/hypotension/ acute renal failure: No defined etiology today. Several serologic studies still pending. Continue empiric meropenem and doxycycline (doxycycline active against potential zoonoses). White blood cell count elevated today which may be leukemoid reaction as well as component related to high-dose Solu-Medrol use. * Left 2nd toe ischemia: Left 2nd toe violaceous but no evidence of superinfection. Likely associated with hypotension and pressor use. 06/15/16 09:46 Subjective: Intubated, sedated. Hospital course since last visit reviewed including chest tube placement for pneumothorax. Objective: Vital Signs Temp Pulse Resp BP Pulse Ox 36.8 C 80 24 H 162/76 H 93 06/15/16 07:00 06/15/16 08:27 06/15/16 08:27 06/15/16 08:00 06/15/16 08:27 Laboratory Results 06/15/16 04:25 06/15/16 04:25 06/14/16 06/15/16 06/16/16 05:59 05:59 05:59 Intake Total 4605 4494 Output Total 1920 2665 280 Balance 2685 1829 -280 Meropenem # 7 Doxycycline # 7 Blood cultures x4 no growth Coccidioides antibody pending Hanta virus antibody pending [place] antibody pending ANCA/anti glomerular basement membrane antibody negative - Physical Exam General Appearance: other (Intubated, sedated) EENT: ET Tube, No scleral icterus, No conjunctival petechiae Respiratory: coarse breath sounds Cardiac/Chest: regular rate, rhythm, No systolic murmur Extremities: other (Left 2nd toe violaceous and cool) Abdomen: non-tender, No distended Skin: other (Multiple ecchymoses) - Line/s RUE PICC Lines: No drainage, No erythema ICD10 Worksheet Patient Problems: Problems Problem Status Onset Pneumonia Acute Severe sepsis Acute Hyperplasia of prostate Active Atrial fibrillation or flutter Acute
--- NOTE | 2016-06-15 10:28 | SOAPPROG ---
SOAP Progress Note Assessment/Plan: Assessment: 1. Community acquired pneumonia 2. COPD 3. Respiratory failure 4. DIC - likely due to infection 5. L 2nd toe ischemia Overall DIC numbers are improving. Plan: - in general would give cryo for fibrinogen <100, but given ischemic toe and the fact that he is not clinically bleeding, I would hold off on this for the time being. - continue Rx of pneumonia and other supportive care d/w Dr. Fay 06/15/16 10:26 Subjective: not responsive. on vent. Objective: exam: Gen: on ventilator, not responsive Lungs CTAB CV RRR no MGR Abd: +BS. distended. nontender. Ext: 2+ edema. ischemia of L 2nd toe Neuro: not responsive Vital Signs Temp Pulse Resp BP Pulse Ox 36.8 C 80 24 H 162/76 H 93 06/15/16 07:00 06/15/16 08:27 06/15/16 08:27 06/15/16 08:00 06/15/16 08:27 Laboratory Results 06/15/16 04:25 06/15/16 04:25 06/14/16 06/15/16 06/16/16 05:59 05:59 05:59 Intake Total 4605 4494 Output Total 1920 2665 280 Balance 2685 1829 -280 PT 22.6 SEC (12.0-15.0) H 06/14/16 00:40 INR 1.98 (0.83-1.16) H 06/14/16 00:40 ICD10 Worksheet Patient Problems: Problems Problem Status Onset Pneumonia Acute Severe sepsis Acute Hyperplasia of prostate Active Atrial fibrillation or flutter Acute
[2016-06-15] MEDS ORDERED: ACETAMINOPHEN 650 MG/20.3 ML UDCUP TUBE PRN (10:57)
[2016-06-15] MEDS ORDERED: LACTULOSE 20 GM/30 ML UDCUP TUBE PRN (10:58)
[2016-06-15] MEDS ORDERED: CHLORPHENIRAMINE MALEATE 4 MG TAB TUBE PRN (10:58)
[2016-06-15] MEDS ORDERED: ONDANSETRON DISINTEGRATING 4 MG TAB TUBE PRN (10:59)
[2016-06-15] MEDS ORDERED: MAGNESIUM HYDROXIDE 30 ML UDCUP TUBE PRN (10:59)
[2016-06-15] MEDS ORDERED: TEMAZEPAM 15 MG CAP TUBE PRN (11:01)
[2016-06-15] MEDS ORDERED: oxyCODONE IR 5 MG TAB TUBE PRN (11:03)
--- NOTE | 2016-06-15 11:41 | HOSPPROG ---
Hospitalist Progress Note Assessment/Plan: # pulmonary - intubated, stable on vent - persistent infiltrates, treating for infection with merrem, doxy; also consider other etiologies - R sided ptx with subQ air - s/p CT by gen surg - underlying COPD, possible underlying ILD # DIC/hematologic abnormalities - he has a blue/cold L toe concerning for embolic disease - appreciate heme - no blood products today unless clinical bleeding # ventricular ectopy - check lytes, trop, ECG, CXR # a-fib - paced # elevated LFTs - better but still elevated bili # hyperNa - incr free H2O flushes, add D5W bolus today # nutrition - TF # CECIL - likely hemodynamic - follow daily, no nephrotoxins # DM2 with hyperglycemia - cont glargine 10U -> 20U today ## 35 minutes of floor critical care time Subjective: Off sedation overnight, not waking up Objective: Vital Signs Temp Pulse Resp BP Pulse Ox 36.8 C 80 24 H 162/76 H 93 06/15/16 07:00 06/15/16 08:27 06/15/16 08:27 06/15/16 08:00 06/15/16 08:27 Laboratory Results 06/15/16 04:25 06/15/16 04:25 06/14/16 06/15/16 06/16/16 05:59 05:59 05:59 Intake Total 4605 4494 Output Total 1920 2665 280 Balance 2685 1829 -280 PT 22.6 SEC (12.0-15.0) H 06/14/16 00:40 INR 1.98 (0.83-1.16) H 06/14/16 00:40 Vitals reviewed does not respond to sternal rub ETT Regular rate and rhythm with premature beats, no murmurs rubs or gallops No respiratory distress, bilat BS, +rhonchi/rales Abdomen soft nontender, nondistended, no hepatosplenomegaly ICD10 Worksheet Patient Problems: Problems Problem Status Onset Hyperplasia of prostate Active Atrial fibrillation or flutter Acute Pneumonia Acute Severe sepsis Acute
[2016-06-15 12:01] LABS: PROTIME(PATIENT) 23.7 SEC (12.0-15.0)
[2016-06-15 12:02] LABS: PLATELET COUNT 82 10^3/uL (150-400)
--- NOTE | 2016-06-15 12:06 | CPEKG ---
Heart Rate: 92 RR Interval: 652 QRSD Interval: 138 QT Interval: 436 QTC Interval: 540 QRS [place]: 114 T Wave [place]: -78 EKG Severity - ABNORMAL ECG - EKG Impression: UNDERLYING ATRIAL FIBRILLATION EKG Impression: VENTRICULAR PACED COMPLEXES EKG Impression: NONSPECIFIC ST DEPRESSION, ANT-LAT LEADS EKG Impression: MODERATE ARTIFACT EKG Impression: PVCs Electronically Signed By: Konstantin Cummings 16-Jun-2016 16:55:25
[2016-06-15 12:22] LABS: MAGNESIUM 3.4 mg/dL (1.6-2.3)
[2016-06-15 12:26] LABS: FIBRINOGEN 63 mg/dL (214-456)
[2016-06-15 12:35] LABS: TROPONIN I 0.075 ng/mL (0-0.034)
--- NOTE | 2016-06-15 15:46 | PDINTPN ---
Hemotherapist Progress Note Assessment/Plan: Assessment: 85 M with hx COPD, CHF with EF 45, chronic afib, and pacer; admitted 06/08/16 with SOB and PNA after failing outpatient Abx. CT ruled out PE, but showed significant bilateral infiltrates suggestive of ILD. Rx'd with meropenem, doxy, and vanco; and appeared stable AM 06/09/16 on SM. He deteriorated overnight and required intubation early AM 06/10. His INR was found to be 12.8 and was given vitamin K and FFP. His BP was low post-intubation, but responded to blood products and fluid challenge. CXR was much worse diffuse infiltrates. * Respiratory failure with hypoxia and now hypercapnia- 2/2 PNA which may have been progressing on current abx (and failed outpatient Levaquin). DDx of acute decompensation includes PNA, COPD, CHF, DAH. BNP >13,000 and CXR were compatible with significant cardiac history. Improved minimally with lasix and chest tube 06/13, but remains on 50% and 5 peep. ABG shows appropriate ventilation with increased VT. Not truly ARDS at this point IMHO. Vent day# 5. He may eventually need trach depending on course and fmaily wishes for technician terminal and repeater aggressive care. I have not raised this issue publicly just yet. * PTX- found on chest CT 06/13 with substantial subcutaneous air. Likely related to positive pressure (plateau has been <30-35) in setting of COPD superimposed on PNA. No air leak today and resolved on CXR * COPD- 2/2 above. Continue solumedrol and change albuterol to duoneb since can' t get Spiriva on vent. Abx include doxy and wagner; vanco dc'd. Other unusual etiologies being pursued, eg Hantavirus, etc. * ILD?- CT shows some patches of what appear to be chronic interstitial changes. Not typical for IPF, with sparing of left subpleural/basilar lung. ? episodes of aspiration. Family reports slow decline over same period. Not stable for biopsy at this time and short term rx would be steroids regardless. Re-eval after recovery * afib- currently 100% paced * chf-echo 06/10/16 shows EF 40-45% and BNP was 13,900 on 06/10 hence trial of diuresis with only modest effect. * levy- oJdy attempted several times including Coude. Placed by urology 06/10/16. Adequate UOP * DIC Likely 2/2 infection. Seems late compared to admit date, but may have been brewing prior to admission. Have discussed with hematology in detail. No evidence of malignancy in abdomen. Consumptive componenet worse today, with INR up slightly and Fibrinogen down. No signs of active uncontrolled bleeding. Left toe ischemia, ? embolic or thrombotic, although no other signs of thrombosis elsewhere. Continue close monitoring, will confer with hematology regarding blood product transfusion vs. anticoagulation. * LFT- mildly elevated but falling as of yesterday. * platelet/dic- falling platelets c/w DIC. as above * BUN climbing at 111 but creatinine only 1.1 and UOP adequate. Likely from catabolic state including steroids. Hemolysis also probable contributor. * Coma: Not waking up despite being off sedation for 24 hours. CTH negative, but could have ischemia/early infarct. Could also be due to critical illness. Plan: Continue vent support. Monitor coag status, observe for signs of active bleeding/clotting. Prognosis poor given respiratory failure, coma, severe coagulopathy, acute/ chronic cardiac compensation. 45 minutes cc time 06/15/16 16:00 Subjective: Intubated, off sedation. Unresponsive. Objective: Vital Signs Temp Pulse Resp BP Pulse Ox 37.0 C 87 27 H 166/75 H 95 06/15/16 15:00 06/15/16 15:00 06/15/16 15:00 06/15/16 15:00 06/15/16 15:00 Microbiology 06/10/16 08:55 Blood Culture - Final Blood 06/10/16 08:15 Blood Culture - Final Blood Laboratory Results 06/15/16 11:40 06/15/16 11:40 06/14/16 06/15/16 06/16/16 05:59 05:59 05:59 Intake Total 4605 4494 703 Output Total 1920 2665 1380 Balance 2685 1829 -677 PT 23.7 SEC (12.0-15.0) H 06/15/16 11:40 INR 2.10 (0.83-1.16) H 06/15/16 11:40 CXR: Diffuse interstitial infiltrates. No PTX. Laboratory Tests 06/15/16 06/15/16 11:40 11:55 INR 2.10 H Fibrinogen 63 L* Troponin I 0.075 H Physical Exam - Physical Exam General Appearance: alert, no apparent distress EENT: normal ENT inspection Neck: normal inspection Respiratory: lungs clear, crackles Cardiac/Chest: regular rate, rhythm, edema (2+) Abdomen: normal bowel sounds, non-tender, soft Skin: normal color Extremities: normal inspection Neuro/Psych: alert, normal mood/affect, oriented x 3 ICD10 Worksheet Patient Problems: Problems Problem Status Onset Pneumonia Acute Severe sepsis Acute Hyperplasia of prostate Active Atrial fibrillation or flutter Acute
--- NOTE | 2016-06-15 17:09 | ECHO ---
[id number] + + [address] : : [place] [id number] : : [phone] + + Adult Echocardiographic Report + -----+ :Name: AMBER MÉNDEZ VStudy Date: 06/15/2016 02:21 PM : : Hospital Admission Number: [id number] Location : 253: :: 1930 Gender: Male : :Age: 85 yrs Race: WH : :Reason For Study: Eval LV Fx : :History: Intubated, Respiratory failure, New elevated : :Troponins and EKG changes, Pacemaker. : + -----+ MMode/2D Measurements \T\ Calculations LVLd ap4: 8.1 cm SV(MOD-sp4): 44.0 ml EDV(MOD-sp4): 109.0 ml LVLs ap4: 7.4 cm ESV(MOD-sp4): 65.0 ml EF(MOD-sp4): 40.4 % Normal Measurement Values: + + :LVIDd (3.5-5.7cm) IVSd (0.6-1.1cm) LVPWd (0.6-1.1cm) Aortic Root (2.0-3.7cm)Left Atrium (1.5-4.0cm): :LV Vol(d) (76-115ml) LV Vol(s) (29-48ml) Ejec Fraction (50-65%)PV Eder (0.6- 1.2m/s) TV Eder (0.4-1.0m/s) : :MV E Eder (0.8-1.0m/s)MV A Eder (0.3-1.0m/s)LVOT Eder (0.7-1.2m/s) Asc Ao Eder ( 0.9-1.8m/s) : + + Left Ventricle The left ventricle is normal in size. There is normal left ventricular wall thickness. Ejection Fraction = 50%. Left ventricular systolic function is low normal. There is basilar inferoseptal hypokinesis in the apical 4C views. Conclusion Limited views were obtained. Limited views were obtained. There is normal left ventricular wall thickness. Left ventricular systolic function is low normal. Ejection Fraction = 50%. Subtle inferoseptal hypokinesis Comared with 06/10/2016, RV appears less dilated on current study. Possible new septal wall motion abnormality, but his septum was also not previously normal due to RV pressure and volume overload. Final Reading Physician: Dr Chanda Butt electronically signed on 06/15/2016 05:08 PM Ordering Physician: Jacinto Osullivan Performed By: Jose Coyle, BRODERICKCS
[2016-06-15] MEDS: METOPROLOL TARTRATE 5 MG/5 ML INJ IVP SCH ×2 (17:59→23:08)
[2016-06-15] MEDS: SENNOSIDES 17.6 MG/10 ML UDL TUBE SCH (20:16)
[2016-06-16] MEDS ORDERED: HYDROmorphONE/DILAUDID 1 MG/ML SYR IVP PRN (01:05)
[2016-06-16 04:05] LABS: ABSOLUTE NRBC COUNT 0.56 10^3/uL (0-0.01); ADD DIFF? YES; ADD SCAN? NO; ATYPICAL LYMPHOCYTE FLAG 10 (0-99); FRAGMENT RBC FLAG 20 (0-99); HEMATOCRIT 30.9 % (40.0-51.0); HEMOGLOBIN 10.1 g/dL (13.7-17.5); LEFT SHIFT FLG 50 (0-99); LIPEMIA HEMOLYSIS FLAG 80 (0-99); MEAN CELL HEMOGLOBIN 31.2 pg (27.9-34.1); MEAN CELL HEMOGLOBIN CONCENTR. 32.7 g/dL (32.4-36.7); MEAN CELL VOLUME 95.4 fL (81.5-99.8); PLATELET CLUMPS FLAG 10 (0-99); PLATELET COUNT 56 10^3/uL (150-400); RED BLOOD CELL COUNT 3.24 10^6/uL (4.40-6.38); RED CELL DISTRIBUTION WIDTH 18.9 % (11.5-15.2)
[2016-06-16] MEDS: IPRATROPIUM HFA INHALER IH SCH ×6 (04:06→23:26)
[2016-06-16] MEDS: ALBUTEROL 60 PUFFS/8 GM MDI IH SCH ×6 (04:07→23:25)
[2016-06-16 04:12] LABS: ADD MORPH? NO; NRBC-AUTO% 2.2 % (0.0-0.2)
[2016-06-16 04:13] LABS: PLATELET COUNT 56 10^3/uL (150-400)
[2016-06-16 04:14] LABS: ANION GAP 7 mEq/L (8-16); CALCIUM 8.9 mg/dL (8.5-10.4); CARBON DIOXIDE 31 mEq/l (22-31); CHLORIDE 116 mEq/L (97-110); CREATININE 0.9 mg/dL (0.7-1.3); GLOMERULAR FILTRATION RATE > 60; GLUCOSE 152 mg/dL (70-100); MAGNESIUM 3.3 mg/dL (1.6-2.3); POTASSIUM 5.3 mEq/L (3.5-5.2); SODIUM 154 mEq/L (134-144)
[2016-06-16 04:20] LABS: INR 2.01 (0.83-1.16); PROTIME(PATIENT) 22.9 SEC (12.0-15.0)
[2016-06-16 04:21] LABS: APTT 29.4 SEC (23.0-38.0)
[2016-06-16 04:23] LABS: TROPONIN I 0.122 ng/mL (0-0.034)
[2016-06-16 04:37] LABS: PLATELET ESTIMATE DECREASED (ADEQ)
[2016-06-16 04:41] LABS: HYPOCHROMIA 1+; MACROCYTES 1+; MICROCYTES 1+
[2016-06-16 04:42] LABS: KERATOCYTES 1+; POLYCHROMASIA 2+; SCHISTOCYTES 2+
[2016-06-16] MEDS: METOPROLOL TARTRATE 5 MG/5 ML INJ IVP SCH ×3 (05:04→17:23)
[2016-06-16] MEDS: MEROPENEM 1 GM in NS 100 ML IV SCH ×3 (05:04→23:07)
[2016-06-16] MEDS: LEVOTHYROXINE 50 MCG TAB TUBE SCH (05:05)
[2016-06-16] MEDS: INSULIN REGULAR, HUMAN 100 UNIT/1 ML VIAL STANDARD SC SCH ×3 (05:05→17:20)
[2016-06-16] MEDS: methylPREDNISolone SOD SUCC 125 MG/2 ML VIAL IVP SCH ×2 (05:05→11:55)
[2016-06-16 05:08] LABS: FIBRINOGEN 74 mg/dL (214-456)
[2016-06-16] MEDS: SENNOSIDES 17.6 MG/10 ML UDL TUBE SCH ×2 (08:12→21:45)
[2016-06-16] MEDS: ZINC GLUCONATE 50 MG TAB TUBE SCH (08:12)
[2016-06-16] MEDS: MULTIVITAMINS 5 ML UDL TUBE SCH (08:12)
[2016-06-16] MEDS: DOXYCYCLINE INJ 100 MG in NS 250 ML IV SCH ×2 (08:12→21:45)
[2016-06-16] MEDS: LANSOPRAZOLE SUSP 30MG/10ML UDSYR (Adult) TUBE SCH (08:12)
[2016-06-16] MEDS: INSULIN GLARGINE 100 UNITS/ML SYRINGE SC SCH (08:14)
[2016-06-16] MEDS ORDERED: FUROSEMIDE 40 MG/4 ML VIAL IVP ONE ×3 (08:25→12:22)
--- NOTE | 2016-06-16 09:46 | HOSPPROG ---
Hospitalist Progress Note Assessment/Plan: # pulmonary - intubated, stable on vent, though no significant improvement - persistent infiltrates, treating for infection with merrem, doxy; also consider other etiologies - R sided ptx with subQ air - s/p CT by gen surg - underlying COPD, possible underlying ILD # encephalopathy - still nonresponsive, off sedation about 36 hours # DIC/hematologic abnormalities - he has a blue/cold L toe concerning for embolic disease - overall slight improvement - appreciate heme - no blood products today unless clinical bleeding # ventricular ectopy - mild elevation in trop - mildly abn echo - will not involve cards at this point as therapeutic options quite limited by DIC - cont metop IV # a-fib - paced # elevated LFTs - better but still elevated bili # hyperNa - incr free H2O flushes # nutrition - TF # CECIL - likely hemodynamic - follow daily, no nephrotoxins # DM2 with hyperglycemia - cont glargine 10U -> 20U today - on high dose steroids ## 35 minutes of floor critical care time Subjective: No significant clinical change overnight Objective: Vital Signs Temp Pulse Resp BP Pulse Ox 36.9 C 84 28 H 168/97 H 95 06/16/16 08:00 06/16/16 08:25 06/16/16 08:25 06/16/16 08:25 06/16/16 08:25 Microbiology 06/10/16 08:55 Blood Culture - Final Blood 06/10/16 08:15 Blood Culture - Final Blood Laboratory Results 06/16/16 03:30 06/16/16 03:30 06/15/16 06/16/16 06/17/16 05:59 05:59 05:59 Intake Total 4494 4366 Output Total 2665 3740 Balance 1829 626 PT 22.9 SEC (12.0-15.0) H 06/16/16 03:30 INR 2.01 (0.83-1.16) H 06/16/16 03:30 In bed, propped upright Does not respond to any commands Regular rate and rhythm, occasional premature beats, 2/6 systolic murmur, no rubs or gallops Coarse breath sounds throughout, bilateral rales, rhonchi, no wheezes Abdomen soft nontender nondistended no hepatosplenomegaly ICD10 Worksheet Patient Problems: Problems Problem Status Onset Hyperplasia of prostate Active Atrial fibrillation or flutter Acute Pneumonia Acute Severe sepsis Acute
--- NOTE | 2016-06-16 10:04 | SOAPPROG ---
SOAP Progress Note Assessment/Plan: Assessment/Plan - POD#3 s/p R CT placement - CXR still shows persistent small ptx without air leak, crepitus in chest wall improved. Cont to suction. 06/14/16 09:12 06/15/16 09:33 06/16/16 10:03 Subjective: Intubated, sedated, unresponsive Objective: Vital Signs Temp Pulse Resp BP Pulse Ox 36.9 C 84 28 H 168/97 H 95 06/16/16 08:00 06/16/16 08:25 06/16/16 08:25 06/16/16 08:25 06/16/16 08:25 Microbiology 06/10/16 08:55 Blood Culture - Final Blood 06/10/16 08:15 Blood Culture - Final Blood Laboratory Results 06/16/16 03:30 06/16/16 03:30 06/15/16 06/16/16 06/17/16 05:59 05:59 05:59 Intake Total 4494 4366 Output Total 2660 3740 Balance 1829 626 PT 22.9 SEC (12.0-15.0) H 06/16/16 03:30 INR 2.01 (0.83-1.16) H 06/16/16 03:30 ICD10 Worksheet Patient Problems: Problems Problem Status Onset Pneumonia Acute Severe sepsis Acute Hyperplasia of prostate Active Atrial fibrillation or flutter Acute
--- NOTE | 2016-06-16 10:21 | SOAPPROG ---
SOAP Progress Note Assessment/Plan: Assessment: 1. Community acquired pneumonia 2. COPD 3. Respiratory failure 4. DIC - likely due to infection 5. L 2nd toe ischemia Overall DIC numbers are stable. No active bleeding. Plan: - in general would give cryo for fibrinogen <100, but given ischemic toe and the fact that he is not clinically bleeding, I would hold off on this for the time being. - continue Rx of pneumonia and other supportive care. - family meeting today to discuss overall prognosis, which seems poor Subjective: making some purposeful movements but still quite somnolent. Objective: exam: nonresponsive no new mucosal bleeding exam essentially unchanged Vital Signs Temp Pulse Resp BP Pulse Ox 36.9 C 84 28 H 168/97 H 95 06/16/16 08:00 06/16/16 08:25 06/16/16 08:25 06/16/16 08:25 06/16/16 08:25 Microbiology 06/10/16 08:55 Blood Culture - Final Blood 06/10/16 08:15 Blood Culture - Final Blood Laboratory Results 06/16/16 03:30 06/16/16 03:30 06/15/16 06/16/16 06/17/16 05:59 05:59 05:59 Intake Total 4494 4366 Output Total 2665 3740 Balance 1829 626 PT 22.9 SEC (12.0-15.0) H 06/16/16 03:30 INR 2.01 (0.83-1.16) H 06/16/16 03:30 ICD10 Worksheet Patient Problems: Problems Problem Status Onset Pneumonia Acute Severe sepsis Acute Hyperplasia of prostate Active Atrial fibrillation or flutter Acute
--- NOTE | 2016-06-16 11:40 | PDINTPN ---
Drug Enforcement Administration Agent Progress Note Assessment/Plan: Assessment: 85 M with hx COPD, CHF with EF 45, chronic afib, and pacer; admitted 06/08/16 with SOB and PNA after failing outpatient Abx. CT ruled out PE, but showed significant bilateral infiltrates suggestive of ILD. Rx'd with meropenem, doxy, and vanco; and appeared stable AM 06/09/16 on SM. He deteriorated overnight and required intubation early AM 06/10. His INR was found to be 12.8 and was given vitamin K and FFP. His BP was low post-intubation, but responded to blood products and fluid challenge. CXR was much worse diffuse infiltrates. * Respiratory failure with hypoxia and now hypercapnia- 2/2 PNA which may have been progressing on current abx (and failed outpatient Levaquin). DDx of acute decompensation includes PNA, COPD, CHF, DAH. BNP >13,000 and CXR were compatible with significant cardiac history. Improved minimally with lasix and chest tube 06/13, but remains on 50% and 5 peep. ABG shows appropriate ventilation with increased VT. Not truly ARDS at this point IMHO. Vent day# 5. He may eventually need trach depending on course and fmaily wishes for watermaster aggressive care. I have not raised this issue publicly just yet. * PTX- found on chest CT 06/13 with substantial subcutaneous air. Likely related to positive pressure (plateau has been <30-35) in setting of COPD superimposed on PNA. No air leak today and resolved on CXR * COPD- 2/2 above. Continue solumedrol and change albuterol to duoneb since can' t get Spiriva on vent. Abx include doxy and wagner; vanco dc'd. Other unusual etiologies being pursued, eg Hantavirus, etc. * ILD?- CT shows some patches of what appear to be chronic interstitial changes. Not typical for IPF, with sparing of left subpleural/basilar lung. ? episodes of aspiration. Family reports slow decline over same period. Not stable for biopsy at this time and short term rx would be steroids regardless. Re-eval after recovery * afib- currently 100% paced * chf-echo 06/10/16 shows EF 40-45% and BNP was 13,900 on 06/10 hence trial of diuresis with only modest effect. * levy- Jody attempted several times including Coude. Placed by urology 06/10/16. Adequate UOP * DIC Likely 2/2 infection. Seems late compared to admit date, but may have been brewing prior to admission. Have discussed with hematology in detail. No evidence of malignancy in abdomen. Consumptive component worse today, with INR up slightly and Fibrinogen down. No signs of active uncontrolled bleeding. Left toe ischemia, ? embolic or thrombotic, although no other signs of thrombosis elsewhere. Continue close monitoring, will confer with hematology regarding blood product transfusion vs. anticoagulation. * LFT- mildly elevated but falling as of yesterday. * platelet/dic- falling platelets c/w DIC. as above * BUN climbing at 111 but creatinine only 1.1 and UOP adequate. Likely from catabolic state including steroids. Hemolysis also probable contributor. * Coma: Not waking up despite being off sedation for 24 hours. CTH negative, but could have ischemia/early infarct. Could also be due to critical illness. Plan: Continue vent support. Monitor coag status, observe for signs of active bleeding/clotting. Prognosis poor given respiratory failure, coma, severe coagulopathy, acute/ chronic cardiac compensation. 45 minutes cc time 06/15/16 16:00 06/16/16 11:40 Subjective: Intubated, sedated Objective: Vital Signs Temp Pulse Resp BP Pulse Ox 37.2 C 78 34 H 175/75 H 94 06/16/16 11:00 06/16/16 11:27 06/16/16 11:27 06/16/16 11:27 06/16/16 11:27 Microbiology 06/10/16 08:55 Blood Culture - Final Blood 06/10/16 08:15 Blood Culture - Final Blood Laboratory Results 06/16/16 03:30 06/16/16 03:30 06/15/16 06/16/16 06/17/16 05:59 05:59 05:59 Intake Total 4494 4366 Output Total 7890 3670 Balance 1829 626 PT 22.9 SEC (12.0-15.0) H 06/16/16 03:30 INR 2.01 (0.83-1.16) H 06/16/16 03:30 ICD10 Worksheet Patient Problems: Problems Problem Status Onset Pneumonia Acute Severe sepsis Acute Hyperplasia of prostate Active Atrial fibrillation or flutter Acute
--- NOTE | 2016-06-16 12:19 | PDINTPN ---
Manpower Development Specialist Progress Note Assessment/Plan: Assessment: 85 M with hx COPD, CHF with EF 45, chronic afib, and pacer; admitted 06/08/16 with SOB and PNA after failing outpatient Abx. CT ruled out PE, but showed significant bilateral infiltrates suggestive of ILD. Rx'd with meropenem, doxy, and vanco; and appeared stable AM 06/09/16 on SM. He deteriorated overnight and required intubation early AM 06/10. His INR was found to be 12.8 and was given vitamin K and FFP. His BP was low post-intubation, but responded to blood products and fluid challenge. CXR was much worse diffuse infiltrates. * Respiratory failure with hypoxia and now hypercapnia- 2/2 PNA which may have been progressing on current abx (and failed outpatient Levaquin). DDx of acute decompensation includes PNA, COPD, CHF, DAH. BNP >13,000 and CXR were compatible with significant cardiac history. Improved minimally with lasix and chest tube 06/13, but remains on 50% and 5 peep. ABG shows appropriate ventilation with increased VT. Not truly ARDS at this point IMHO. Vent day# 5. He may eventually need trach depending on course and fmaily wishes for truck terminal manager aggressive care. I have not raised this issue publicly just yet. * PTX- found on chest CT 06/13 with substantial subcutaneous air. Likely related to positive pressure (plateau has been <30-35) in setting of COPD superimposed on PNA. No air leak today and resolved on CXR * COPD- 2/2 above. Continue solumedrol and change albuterol to duoneb since can' t get Spiriva on vent. Abx include doxy and wagner; vanco dc'd. Other unusual etiologies being pursued, eg Hantavirus, etc. * ILD?- CT shows some patches of what appear to be chronic interstitial changes. Not typical for IPF, with sparing of left subpleural/basilar lung. ? episodes of aspiration. Family reports slow decline over same period. Not stable for biopsy at this time and short term rx would be steroids regardless. Re-eval after recovery * afib- currently 100% paced * chf-echo 06/10/16 shows EF 40-45% and BNP was 13,900 on 06/10 hence trial of diuresis with only modest effect. * levy- Jody attempted several times including Coude. Placed by urology 06/10/16. Adequate UOP * DIC Likely 2/2 infection. Seems late compared to admit date, but may have been brewing prior to admission. Have discussed with hematology in detail. No evidence of malignancy in abdomen. Consumptive component worse today, with INR up slightly and Fibrinogen down. No signs of active uncontrolled bleeding. Left toe ischemia, ? embolic or thrombotic, although no other signs of thrombosis elsewhere. Continue close monitoring, will confer with hematology regarding blood product transfusion vs. anticoagulation. * LFT- mildly elevated but falling as of yesterday. * platelet/dic- falling platelets c/w DIC. as above * BUN climbing at 111 but creatinine only 1.1 and UOP adequate. Likely from catabolic state including steroids. Hemolysis also probable contributor. * Coma: Not waking up despite being off sedation for 36+ hours. CTH negative, but could have ischemia/early infarct. Could also be due to critical illness, hypernatremia. Plan: Continue vent support, antibiotics, TF. Monitor coag status, observe for signs of active bleeding/clotting. Currently, in the absence of active bleeding or clear clotting, will hold on blood products. Increase free H2O. Diuresis. Prognosis poor given respiratory failure, coma, severe coagulopathy, acute/ chronic cardiac compensation. Discussed with family members during a family conference. They will decide on the level of continued support/care that they feel he would want. 50 minutes cc time 06/16/16 12:23 Subjective: Intubated, unresponsive Objective: Vital Signs Temp Pulse Resp BP Pulse Ox 37.2 C 76 34 H 175/75 H 94 06/16/16 11:00 06/16/16 11:54 06/16/16 11:27 06/16/16 11:54 06/16/16 11:27 Microbiology 06/10/16 08:55 Blood Culture - Final Blood 06/10/16 08:15 Blood Culture - Final Blood Laboratory Results 06/16/16 03:30 06/16/16 03:30 06/15/16 06/16/16 06/17/16 05:59 05:59 05:59 Intake Total 4494 4366 Output Total 2665 3740 Balance 1829 626 PT 22.9 SEC (12.0-15.0) H 06/16/16 03:30 INR 2.01 (0.83-1.16) H 06/16/16 03:30 No change in infiltrates. Images reviewed Physical Exam - Physical Exam General Appearance: No alert EENT: normal ENT inspection, ET tube Neck: normal inspection Respiratory: crackles Cardiac/Chest: regular rate, rhythm, No edema Abdomen: normal bowel sounds, non-tender, soft Skin: normal color, warm/dry Extremities: normal inspection Neuro/Psych: other (no response to voice, noxious ), No alert (no resonse to voice, noxious stimuli), No normal mood/affect, No oriented x 3 ICD10 Worksheet Patient Problems: Problems Problem Status Onset Pneumonia Acute Severe sepsis Acute Hyperplasia of prostate Active Atrial fibrillation or flutter Acute
[2016-06-16] MEDS ORDERED: METOLAZONE 5 MG TAB PO ONE (12:23)
--- NOTE | 2016-06-16 12:32 | PCMIDPN ---
Assessment/Plan: Assessment/Plan: 1. Respiratory failure 2/2 bilateral pulmonary infiltrates: - Hospital course with DIC, hypotension, ARF - On broad antibiotic coverage with Merem, + doxy. -Multiple studies still pending including: Coccio, [place]aremia, etc -wbc up but multifactorial (infection, solumedrol etc.) -Prognosis guarded. Meds merem 1g q8- doxy 100mg daily Subjective: Afebrile. Remains in ICU. intubated, sedated. FIO2at 50%. Objective: Vital Signs Temp Pulse Resp BP Pulse Ox 37.2 C 76 34 H 175/75 H 94 06/16/16 11:00 06/16/16 11:54 06/16/16 11:27 06/16/16 11:54 06/16/16 11:27 Microbiology 06/10/16 08:55 Blood Culture - Final Blood 06/10/16 08:15 Blood Culture - Final Blood Laboratory Results 06/16/16 03:30 06/16/16 03:30 06/15/16 06/16/16 06/17/16 05:59 05:59 05:59 Intake Total 4494 4366 Output Total 2665 6950 600 Balance 1829 626 600 - Physical Exam General Appearance: other (intubated ,sedated) EENT: ET Tube Respiratory: coarse breath sounds (bilateral) Cardiac/Chest: regular rate, rhythm Abdomen: normal bowel sounds, non-tender, soft, No distended ICD10 Worksheet Patient Problems: Problems Problem Status Onset Pneumonia Acute Severe sepsis Acute Hyperplasia of prostate Active Atrial fibrillation or flutter Acute
--- NOTE | 2016-06-16 14:24 | WOCRNPDOC ---
WOCRN Advanced Assessment Note - Skin Integrity Problem, Advanced Assess Left Second Toe Dressing Type: Open to Air Exudate Amount: None Exudate Characteristic(s): None Karina Wound Swelling: Moderate Wound Bed Color: Black, Blue Wound Bed Constitution: Intact Serous Filled Blister Site Odor: None Skin Integrity Problem Comment: Distal 2/3 of toe is black/blue, consistent w/ ischemic injury. There are two serous-filled blisters on this toe, one on the dorsum and one on the plantar aspect, both presently intact. There is also a corn on the dorsum of the toe, which appears to be a long-standing injury. Advised traffic officerTERRA Hart to weave Mepilex Transfer between 1st and 3rd toes on L foot, to keep tissues dry. Also advised to reconsult wound care if blisters de -roof.
[2016-06-16 16:18] LABS: MISCELLANEOUS TEST See Comments
[2016-06-16 20:23] LABS: FRANCISELLA (TULAREMIA) AB <1:20
[2016-06-16] MEDS ORDERED: INSULIN GLARGINE 100 UNITS/ML SYRINGE SC SCH (21:00)
[2016-06-17] MEDS: methylPREDNISolone SOD SUCC 125 MG/2 ML VIAL IVP SCH ×4 (00:36→19:24)
[2016-06-17] MEDS: INSULIN REGULAR, HUMAN 100 UNIT/1 ML VIAL STANDARD SC SCH ×4 (00:36→19:24)
[2016-06-17] MEDS: METOPROLOL TARTRATE 5 MG/5 ML INJ IVP SCH ×4 (00:38→19:29)
[2016-06-17] MEDS: IPRATROPIUM HFA INHALER IH SCH ×6 (04:12→23:39)
[2016-06-17] MEDS: ALBUTEROL 60 PUFFS/8 GM MDI IH SCH ×6 (04:12→23:39)
[2016-06-17 05:04] LABS: ABSOLUTE NRBC COUNT 0.51 10^3/uL (0-0.01); ADD DIFF? YES; ADD MORPH? YES; ADD SCAN? NO; ATYPICAL LYMPHOCYTE FLAG 0 (0-99); FRAGMENT RBC FLAG 20 (0-99); HEMATOCRIT 31.3 % (40.0-51.0); HEMOGLOBIN 9.5 g/dL (13.7-17.5); LEFT SHIFT FLG 30 (0-99); LIPEMIA HEMOLYSIS FLAG 80 (0-99); MEAN CELL HEMOGLOBIN 30.2 pg (27.9-34.1); MEAN CELL HEMOGLOBIN CONCENTR. 30.4 g/dL (32.4-36.7); MEAN CELL VOLUME 99.4 fL (81.5-99.8); PLATELET CLUMPS FLAG 30 (0-99); PLATELET COUNT 63 10^3/uL (150-400); RED BLOOD CELL COUNT 3.15 10^6/uL (4.40-6.38); RED CELL DISTRIBUTION WIDTH 19.6 % (11.5-15.2)
[2016-06-17 05:10] LABS: NRBC-AUTO% 1.8 % (0.0-0.2)
[2016-06-17 05:17] LABS: APTT 27.7 SEC (23.0-38.0); INR 2.08 (0.83-1.16); PROTIME(PATIENT) 23.5 SEC (12.0-15.0)
[2016-06-17] MEDS: LEVOTHYROXINE 50 MCG TAB TUBE SCH (05:18)
[2016-06-17] MEDS: MEROPENEM 1 GM in NS 100 ML IV SCH ×3 (05:28→22:18)
[2016-06-17 05:30] LABS: ALANINE AMINOTRANSFERASE 125 IU/L (21-72); ALBUMIN 2.9 g/dL (3.5-5.0); ALKALINE PHOSPHATASE 68 IU/L (38-126); ANION GAP 8 mEq/L (8-16); ASPARTATE AMINOTRANSFERASE 84 IU/L (17-59); BILIRUBIN,TOTAL 5.5 mg/dL (0.1-1.4); CALCIUM 8.4 mg/dL (8.5-10.4); CARBON DIOXIDE 31 mEq/l (22-31); CHLORIDE 115 mEq/L (97-110); CREATININE 1.3 mg/dL (0.7-1.3); GLOMERULAR FILTRATION RATE 53; GLUCOSE 254 mg/dL (70-100); POTASSIUM 5.4 mEq/L (3.5-5.2); SODIUM 154 mEq/L (134-144); TOTAL PROTEIN 5.6 g/dL (6.3-8.2)
[2016-06-17 05:46] LABS: MACROCYTES 2+; MICROCYTES 2+; POLYCHROMASIA 1+
[2016-06-17 05:47] LABS: KERATOCYTES 1+; PLATELET COUNT 63 10^3/uL (150-400); PLATELET ESTIMATE DECREASED (ADEQ); SCHISTOCYTES 1+
[2016-06-17 06:12] LABS: FIBRINOGEN 93 mg/dL (214-456)
[2016-06-17 06:16] LABS: BILIRUBIN-CONJUGATED 4.1 mg/dL (0.0-0.5); BILIRUBIN-UNCONJUGATED 1.4 mg/dL (0.0-1.1)
[2016-06-17] MEDS: DOXYCYCLINE INJ 100 MG in NS 250 ML IV SCH ×2 (08:14→21:15)
[2016-06-17] MEDS: INSULIN GLARGINE 100 UNITS/ML SYRINGE SC SCH (08:14)
[2016-06-17] MEDS: ZINC GLUCONATE 50 MG TAB TUBE SCH (08:14)
[2016-06-17] MEDS: MULTIVITAMINS 5 ML UDL TUBE SCH (08:15)
[2016-06-17] MEDS: SENNOSIDES 17.6 MG/10 ML UDL TUBE SCH ×2 (08:15→21:15)
[2016-06-17] MEDS: LANSOPRAZOLE SUSP 30MG/10ML UDSYR (Adult) TUBE SCH (08:15)
[2016-06-17] MEDS ORDERED: INSULIN GLARGINE 100 UNITS/ML SYRINGE SC SCH (09:56)
--- NOTE | 2016-06-17 09:57 | HOSPPROG ---
Hospitalist Progress Note Assessment/Plan: # pulmonary - intubated, stable on vent, though no significant improvement - persistent infiltrates, treating for infection with merrem, doxy; also consider other etiologies - R sided ptx with subQ air - s/p CT by gen surg - underlying COPD, possible underlying ILD # encephalopathy - still nonresponsive, off sedation for days # DIC/hematologic abnormalities - he has a blue/cold L toe concerning for embolic disease - appreciate heme - no blood products today unless clinical bleeding; will hold on AC for now # leukocytosis: Worsening; concerning though may be due to steroids # ventricular ectopy - mild elevation in trop - mildly abn echo - will not involve cards at this point as therapeutic options quite limited by DIC # a-fib - paced # elevated LFTs - more elevated today, concerning overall # hyperNa - incr free H2O flushes; start 04/22 NS # hyperK - decrease K in TF # hyperMg - decrease Mg in TF # nutrition - TF # CECIL - worse today with diuretics yesterday # DM2 with hyperglycemia - incr glargine # prognosis: Overall very guarded; has not made any significant improvement to this point ## 35 minutes of floor critical care time Subjective: Still not responding to any stimuli Objective: Vital Signs Temp Pulse Resp BP Pulse Ox 38.2 C 76 42 H 119/86 H 100 06/17/16 07:00 06/17/16 08:17 06/17/16 08:17 06/17/16 08:17 06/17/16 08:17 Laboratory Results 06/17/16 04:43 06/17/16 04:43 06/16/16 06/17/16 06/18/16 05:59 05:59 05:59 Intake Total 4366 2949 Output Total 3740 4285 Balance 626 -1336 PT 23.5 SEC (12.0-15.0) H 06/17/16 04:43 INR 2.08 (0.83-1.16) H 06/17/16 04:43 Intubated Not arousable; moving all extremities; not following commands Regular rate and rhythm no murmurs rubs or gallops Coarse breath sounds, positive rales, positive rhonchi; no diminished breath sounds Chest tube in right-sided Abdomen soft, no masses appreciated, no evidence of tenderness, normal bowel sounds Left 2nd toe black/bluish ICD10 Worksheet Patient Problems: Problems Problem Status Onset Hyperplasia of prostate Active Atrial fibrillation or flutter Acute Pneumonia Acute Severe sepsis Acute
--- NOTE | 2016-06-17 10:57 | PCMIDPN ---
Assessment/Plan: Assessment/Plan: * Respiratory failure with bilateral pulmonary infiltrates with DIC/hypotension/ acute renal failure: Etiology remains undefined. Serologic testing for Q fever , Sage virus, and tularemia all negative. Coccidioides antibody pending although suspect this is unlikely etiology. Plan 10 days of meropenem and doxycycline which will be due to be completed tomorrow. Will check leptospira antibody as can be associated with DIC. * Left foot digital ischemia: No superimposed signs of infection. * Fever: Febrile to 38.2. Will obtain blood cultures to assess for any superimposed nosocomial process such as fungemia or bacteremia. 06/17/16 10:53 Subjective: Remains unresponsive despite sedation being stopped. Objective: Vital Signs Temp Pulse Resp BP Pulse Ox 38.2 C 76 42 H 119/86 H 100 06/17/16 07:00 06/17/16 08:17 06/17/16 08:17 06/17/16 08:17 06/17/16 08:17 Laboratory Results 06/17/16 04:43 06/17/16 04:43 06/16/16 06/17/16 06/18/16 05:59 05:59 05:59 Intake Total 4366 2949 Output Total 3740 4285 Balance 626 -1336 T 38.2 Meropenem # 9 Doxycycline # 9 Hanta virus antibody negative, tularemia antibody negative Coccidioides antibody pending Laboratory Tests 06/17/16 04:43 Total Bilirubin 5.5 H Conjugated Bilirubin 4.1 H Unconjugated Bilirubin 1.4 H AST 84 H ALT 125 H Alkaline Phosphatase 68 Chest x-ray with bilateral infiltrates - Physical Exam General Appearance: other (Unresponsive) EENT: scleral icterus (With associated conjunctival suffusion) Respiratory: coarse breath sounds Cardiac/Chest: regular rate, rhythm Extremities: other (Ischemic changes over digits of left foot) Abdomen: non-tender, No distended Skin: other (Diffuse ecchymoses) ICD10 Worksheet Patient Problems: Problems Problem Status Onset Pneumonia Acute Severe sepsis Acute Hyperplasia of prostate Active Atrial fibrillation or flutter Acute
--- NOTE | 2016-06-17 13:18 | PDINTPN ---
Lining [facility] Progress Note Assessment/Plan: Assessment: 85 M with hx COPD, CHF with EF 45, chronic afib, and pacer; admitted 06/08/16 with SOB and PNA after failing outpatient Abx. CT ruled out PE, but showed significant bilateral infiltrates suggestive of ILD. Rx'd with meropenem, doxy, and vanco; and appeared stable AM 06/09/16 on SM. He deteriorated overnight and required intubation early AM 06/10. His INR was found to be 12.8 and was given vitamin K and FFP. * Respiratory failure with hypoxia- 2/2 PNA which may have been progressing on current abx (and failed outpatient Levaquin). DDx of acute decompensation includes PNA, COPD, CHF, DAH. BNP >13,000 and CXR were compatible with significant cardiac history. Improved minimally with lasix and chest tube 06/13, now on 40%. ABG shows appropriate ventilation with increased VT. Not truly ARDS at this point IMHO. He may eventually need trach depending on course and fmaily wishes for fpc aggressive care. I have not raised this issue publicly just yet. * PTX- found on chest CT 06/13 with substantial subcutaneous air. Likely related to positive pressure (plateau has been <30-35) in setting of COPD superimposed on PNA. No air leak today and resolved on CXR * COPD- 2/2 above. Continue solumedrol and change albuterol to duoneb since can' t get Spiriva on vent. Abx include doxy and wagner; vanco dc'd. Other unusual etiologies being pursued, eg Hantavirus, etc. * ILD?- CT shows some patches of what appear to be chronic interstitial changes. Not typical for IPF, with sparing of left subpleural/basilar lung. ? episodes of aspiration. Family reports slow decline over same period. Not stable for biopsy at this time and short term rx would be steroids regardless. Re-eval after recovery * afib- currently 100% paced * chf-echo 06/10/16 shows EF 40-45% and BNP was 13,900 on 06/10 hence trial of diuresis with only modest effect. * lockett- Rn attempted several times including Coude. Placed by urology 06/10/16. Adequate UOP * DIC Likely 2/2 infection. Seems late compared to admit date, but may have been brewing prior to admission. Have discussed with hematology in detail. No evidence of malignancy in abdomen. Consumptive component essentially stable. Some BRBPR today. Left toe ischemia, ? embolic or thrombotic, although no other signs of thrombosis elsewhere. Continue close monitoring, will confer with hematology regarding blood product transfusion vs. anticoagulation. * LFT- mildly elevated but falling as of yesterday. * platelet/dic- falling platelets c/w DIC. as above * Renal: Cr and BUN up today, ? related to diuresis yesterday. UOP adequate. Na remains high despite free H2O in TF * Coma: Not waking up despite being off sedation for 36+ hours. CTH negative, but could have ischemia/early infarct. Could also be due to critical illness, hypernatremia. Plan: Continue vent support, antibiotics, TF. Check Blood Cxs. Monitor coag status, H/H, consider cryo if has further bleeding. Increase free H2O to 250 q2h via TF. Follow Na, BUN/Cr Prognosis poor given respiratory failure, coma, severe coagulopathy, acute/ chronic cardiac compensation. 40 minutes cc time 06/17/16 13:19 Subjective: Unresponsive Objective: Vital Signs Temp Pulse Resp BP Pulse Ox 37.4 C 80 34 H 129/74 H 100 06/17/16 12:00 06/17/16 12:00 06/17/16 12:00 06/17/16 12:00 06/17/16 12:00 Laboratory Results 06/17/16 04:43 06/17/16 04:43 06/16/16 06/17/16 06/18/16 05:59 05:59 05:59 Intake Total 4366 2949 Output Total 3740 4285 Balance 626 -1336 PT 23.5 SEC (12.0-15.0) H 06/17/16 04:43 INR 2.08 (0.83-1.16) H 06/17/16 04:43 Physical Exam - Physical Exam General Appearance: alert, no apparent distress EENT: normal ENT inspection, ET tube Neck: normal inspection Respiratory: lungs clear, normal breath sounds Cardiac/Chest: regular rate, rhythm, edema (1+) Abdomen: normal bowel sounds, non-tender Skin: warm/dry Extremities: non-tender, other (ischemia/early necrosis several toes) Neuro/Psych: No alert, No normal mood/affect ICD10 Worksheet Patient Problems: Problems Problem Status Onset Pneumonia Acute Severe sepsis Acute Hyperplasia of prostate Active Atrial fibrillation or flutter Acute
[2016-06-17 15:29] LABS: HEMATOCRIT 30.7 % (40.0-51.0); HEMOGLOBIN 9.6 g/dL (13.7-17.5)
[2016-06-17] MEDS ORDERED: INSULIN NPH HUMAN 100 UNITS/ML SYRINGE SC ONE (16:16)
[2016-06-17 19:12] LABS: GLUCOSE 335 mg/dL (70-100)
[2016-06-18] MEDS: methylPREDNISolone SOD SUCC 125 MG/2 ML VIAL IVP SCH ×2 (00:20→05:48)
[2016-06-18] MEDS: METOPROLOL TARTRATE 5 MG/5 ML INJ IVP SCH ×4 (00:20→16:58)
[2016-06-18 00:42] LABS: GLUCOSE 351 mg/dL (70-100)
[2016-06-18] MEDS: INSULIN REGULAR, HUMAN 100 UNIT/1 ML VIAL STANDARD SC SCH ×2 (00:53→05:50)
[2016-06-18] MEDS: IPRATROPIUM HFA INHALER IH SCH ×5 (03:49→20:15)
[2016-06-18] MEDS: ALBUTEROL 60 PUFFS/8 GM MDI IH SCH ×5 (03:49→20:15)
[2016-06-18 04:31] LABS: ABSOLUTE NRBC COUNT 0.58 10^3/uL (0-0.01); ADD DIFF? YES; ADD MORPH? YES; ATYPICAL LYMPHOCYTE FLAG 0 (0-99); FRAGMENT RBC FLAG 40 (0-99); HEMOGLOBIN 9.1 g/dL (13.7-17.5); LEFT SHIFT FLG 20 (0-99); LIPEMIA HEMOLYSIS FLAG 80 (0-99); MEAN CELL HEMOGLOBIN 30.1 pg (27.9-34.1); MEAN CELL HEMOGLOBIN CONCENTR. 31.4 g/dL (32.4-36.7); PLATELET CLUMPS FLAG 10 (0-99); PLATELET COUNT 65 10^3/uL (150-400); RED BLOOD CELL COUNT 3.02 10^6/uL (4.40-6.38)
[2016-06-18 04:41] LABS: INR 2.28 (0.83-1.16); PROTIME(PATIENT) 25.3 SEC (12.0-15.0)
[2016-06-18 04:42] LABS: APTT 29.8 SEC (23.0-38.0)
[2016-06-18 04:52] LABS: ADD SCAN? NO; NRBC-AUTO% 1.9 % (0.0-0.2); RED CELL DISTRIBUTION WIDTH 20.2 % (11.5-15.2)
[2016-06-18 04:54] LABS: PLATELET COUNT 65 10^3/uL (150-400)
[2016-06-18 05:03] LABS: FIBRINOGEN < 60 mg/dL (214-456)
[2016-06-18 05:14] LABS: ALANINE AMINOTRANSFERASE 120 IU/L (21-72); ALBUMIN 2.7 g/dL (3.5-5.0); ALKALINE PHOSPHATASE 64 IU/L (38-126); ANION GAP 10 mEq/L (8-16); ASPARTATE AMINOTRANSFERASE 63 IU/L (17-59); CARBON DIOXIDE 27 mEq/l (22-31); CHLORIDE 113 mEq/L (97-110); GLOMERULAR FILTRATION RATE 32; GLUCOSE 393 mg/dL (70-100); POTASSIUM 5.1 mEq/L (3.5-5.2); SODIUM 150 mEq/L (134-144); TOTAL PROTEIN 5.3 g/dL (6.3-8.2)
[2016-06-18] MEDS: MEROPENEM 1 GM in NS 100 ML IV SCH ×3 (05:48→22:33)
[2016-06-18] MEDS: LEVOTHYROXINE 50 MCG TAB TUBE SCH (05:51)
[2016-06-18 05:54] LABS: HYPOCHROMIA 1+; MACROCYTES 1+; MICROCYTES 1+; POLYCHROMASIA 2+
[2016-06-18 05:55] LABS: GIANT PLATELETS PRESENT; PLATELET ESTIMATE DECREASED (ADEQ); SCHISTOCYTES 2+
[2016-06-18] MEDS: LANSOPRAZOLE SUSP 30MG/10ML UDSYR (Adult) TUBE SCH (08:10)
[2016-06-18] MEDS: MULTIVITAMINS 5 ML UDL TUBE SCH (08:10)
[2016-06-18] MEDS: INSULIN GLARGINE 100 UNITS/ML SYRINGE SC SCH (08:10)
[2016-06-18] MEDS: SENNOSIDES 17.6 MG/10 ML UDL TUBE SCH ×2 (08:10→20:38)
[2016-06-18] MEDS: DOXYCYCLINE INJ 100 MG in NS 250 ML IV SCH ×2 (08:10→20:36)
--- NOTE | 2016-06-18 10:58 | SOAPPROG ---
SOAP Progress Note Assessment/Plan: Assessment: 1. Community acquired pneumonia 2. COPD 3. Respiratory failure 4. DIC - likely due to infection 5. L 2nd toe ischemia fibrinogen lower. Suggests worsening DIC +/- liver dysfunction. overall prognosis extremely poor Plan: - give cryo for fibrinogen <100, FFP for elevated INR if bleeding - continue Rx of pneumonia and other supportive care. - will sign off at this point. please reconsult with further questions d/w Dr. Fay 06/18/16 10:57 Subjective: unresponsive. Objective: exam unchanged no new bleeding Vital Signs Temp Pulse Resp BP Pulse Ox 38.1 C 70 29 H 126/69 H 94 06/17/16 23:57 06/18/16 10:00 06/18/16 10:00 06/18/16 10:00 06/18/16 10:00 Laboratory Results 06/18/16 04:20 06/18/16 04:20 06/17/16 06/18/16 06/19/16 05:59 05:59 05:59 Intake Total 2949 4368 Output Total 4285 1800 Balance -1336 2568 PT 25.3 SEC (12.0-15.0) H 06/18/16 04:20 INR 2.28 (0.83-1.16) H 06/18/16 04:20 ICD10 Worksheet Patient Problems: Problems Problem Status Onset Pneumonia Acute Severe sepsis Acute Hyperplasia of prostate Active Atrial fibrillation or flutter Acute
--- NOTE | 2016-06-18 11:31 | PDINTPN ---
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 CT ruled out PE, but showed significant bilateral infiltrates suggestive of ILD. Rx'd with meropenem, doxy, and vanco; and appeared stable AM 06/09/16 on SM. He deteriorated overnight and required intubation early AM 06/10. His INR was found to be 12.8 and was given vitamin K and FFP. * Respiratory failure with hypoxia- 2/2 PNA which may have been progressing on current abx (and failed outpatient Levaquin). DDx of acute decompensation includes PNA, COPD, CHF, DAH. BNP >13,000 and CXR were compatible with significant cardiac history. Improved minimally with lasix and chest tube 06/13, now on 40%. Having tachypnea with high airway pressures. * PTX- found on chest CT 06/13 with substantial subcutaneous air. Likely related to positive pressure (plateau has been <30-35) in setting of COPD superimposed on PNA. No air leak today. * COPD- 2/2 above. Continue solumedrol and change albuterol to duoneb since can' t get Spiriva on vent. Abx include doxy and wagner; vanco dc'd. Other unusual etiologies being pursued, eg Hantavirus, etc. * ILD?- CT shows some patches of what appear to be chronic interstitial changes. Not typical for IPF, with sparing of left subpleural/basilar lung. ? episodes of aspiration. Family reports slow decline over same period. Not stable for biopsy at this time and short term rx would be steroids regardless. Re-eval after recovery * afib- currently 100% paced * chf-echo 06/10/16 shows EF 40-45% and BNP was 13,900 on 06/10 hence trial of diuresis with only modest effect. * lockett- Rn attempted several times including Coude. Placed by urology 06/10/16. Adequate UOP * DIC Likely 2/2 infection. Seems late compared to admit date, but may have been brewing prior to admission. Have discussed with hematology in detail. No evidence of malignancy in abdomen. Consumptive component bit worse today, with lower fibrinogen and higher INR. Some BRBPR yesterday. Left toe ischemia, ? embolic or thrombotic, although no other signs of thrombosis elsewhere. Hematology following. * LFT- mildly elevated but falling as of yesterday. * Renal: Cr and BUN up today, ? related to diuresis yesterday. UOP adequate. Na remains high but down a bit with H2O TF flushes. * Coma: Not waking up despite being off sedation for 72+ hours. CTH negative, but could have ischemia/early infarct. Could also be due to critical illness. Hypernatremia improved, less likely to be playing a role. * Hyperglycemia: Likely due to steroids, TF, and acute illness. Plan: Continue vent support, antibiotics, TF. Follow Blood Cxs. Monitor coag status, H/H. Cryo today. Will decrease free H2O a bit to 250 q3h via TF. Follow Na, BUN/Cr Decrease steroids, increase insulin Check CXR Prognosis poor given respiratory failure, coma, severe coagulopathy, acute/ chronic cardiac compensation, worsening renal Fx. D/W Dallas Bradley and Harleen, RN, RT, family 45 minutes cc time 06/18/16 11:42 Subjective: Unresponsive Objective: Vital Signs Temp Pulse Resp BP Pulse Ox 38.1 C 95 29 H 126/69 H 95 06/17/16 23:57 06/18/16 10:58 06/18/16 10:00 06/18/16 10:00 06/18/16 10:58 Laboratory Results 06/18/16 04:20 06/18/16 04:20 06/17/16 06/18/16 06/19/16 05:59 05:59 05:59 Intake Total 2949 4368 Output Total 4285 1800 Balance -1336 2568 PT 25.3 SEC (12.0-15.0) H 06/18/16 04:20 INR 2.28 (0.83-1.16) H 06/18/16 04:20 Physical Exam - Physical Exam General Appearance: No alert EENT: normal ENT inspection, ET tube Neck: normal inspection Respiratory: lungs clear, No normal breath sounds Cardiac/Chest: regular rate, rhythm, No edema Abdomen: normal bowel sounds, non-tender, soft Skin: normal color, warm/dry Extremities: normal inspection Neuro/Psych: No alert (unresonsive. Gag reflex present) ICD10 Worksheet Patient Problems: Problems Problem Status Onset Pneumonia Acute Severe sepsis Acute Hyperplasia of prostate Active Atrial fibrillation or flutter Acute
[2016-06-18] MEDS ORDERED: INSULIN GLARGINE 100 UNITS/ML SYRINGE SC SCH ×2 (11:41→11:42)
[2016-06-18 13:51] LABS: GLUCOSE 331 mg/dL (70-100)
[2016-06-18 14:15] LABS: COCCIDIOIDES ANTIBODY SERUM Negative (Negative); COCCIDIOIDES IGG IMMUNODIF Negative (Negative); COCCIDIOIDES IGM IMMUNODIF Negative (Negative)
[2016-06-18] MEDS: INSULIN REGULAR HUMAN 100 UNIT/ML SC SCH ×3 (14:30→22:31)
--- NOTE | 2016-06-18 15:23 | HOSPPROG ---
Hospitalist Progress Note Assessment/Plan: # pulmonary - intubated, stable on vent, though no significant improvement - persistent infiltrates, treating for infection with merrem, doxy; also consider other etiologies - R sided ptx with subQ air - s/p CT by gen surg - underlying COPD, possible underlying ILD * community-acquired pneumonia versus other * failed outpatient Levaquin * serology of all been negative # DIC/hematologic abnormalities - he has a blue/cold L toe concerning for embolic disease - appreciate heme - no blood products today unless clinical bleeding; will hold on AC for now # leukocytosis: Worsening; concerning though may be due to steroids # ventricular ectopy - mild elevation in trop - mildly abn echo - will not involve cards at this point as therapeutic options quite limited by DIC # a-fib - paced # elevated LFTs - more elevated today, concerning overall * nonischemic cardiomyopathy with EF of 40%, status post Bi V ICD * hypertension * hyperlipidemia * patient is critically ill with borderline functional status to begin with * difficult [place] placement * required Urology to place * poor overall prognosis 35 minutes of critical care time spent\ Subjective: no new events. Not waking up Objective: Vital Signs Temp Pulse Resp BP Pulse Ox 38.1 C 74 33 H 114/58 L 89 L 06/17/16 23:57 06/18/16 13:41 06/18/16 13:41 06/18/16 13:41 06/18/16 13:41 Laboratory Results 06/18/16 04:20 06/18/16 13:21 06/17/16 06/18/16 06/19/16 05:59 05:59 05:59 Intake Total 2949 4368 Output Total 4285 1800 Balance -1336 2568 PT 25.3 SEC (12.0-15.0) H 06/18/16 04:20 INR 2.28 (0.83-1.16) H 06/18/16 04:20 - Physical Exam Constitutional: no apparent distress, appears nourished, not in pain Eyes: anicteric sclera, EOMI Ears, Nose, Mouth, Throat: ears appear normal Cardiovascular: regular rate and rhythym, no murmur, rub, or gallop, edema ( anasarca) Respiratory: other ( intubated, tachypneic) Gastrointestinal: other ( decreased bowel sounds soft) Skin: warm Neurologic: other ( unresponsive) ICD10 Worksheet Patient Problems: Problems Problem Status Onset Pneumonia Acute Severe sepsis Acute Hyperplasia of prostate Active Atrial fibrillation or flutter Acute
--- NOTE | 2016-06-18 17:27 | PCMIDPN ---
Assessment/Plan: Assessment/Plan: * Respiratory failure with bilateral pulmonary infiltrates with DIC/hypotension/ acute renal failure: Etiology remains undefined. Serologic testing for Q fever , Sage virus, coccidioidomycosis and tularemia all negative. Has completed 10 days of meropenem and doxycycline. Given no pathogens identified, will discontinue these antibiotics. Continues to have persistent DIC and now also with worsening renal function. Leptospira antibody and repeat blood cultures pending. * Left foot digital ischemia: No superimposed signs of infection. * Fever: Repeat blood cultures pending to assess for nosocomial fungemia or bacteremia. 06/18/16 17:24 Subjective: Intubated, unresponsive. Objective: Vital Signs Temp Pulse Resp BP Pulse Ox 38.1 C 75 35 H 103/62 92 06/17/16 23:57 06/18/16 16:00 06/18/16 16:00 06/18/16 16:00 06/18/16 16:00 Laboratory Results 06/18/16 04:20 06/18/16 13:21 06/17/16 06/18/16 06/19/16 05:59 05:59 05:59 Intake Total 2949 4368 Output Total 4285 1800 Balance -1336 2568 Meropenem # 10 Doxycycline # 10 Coccidioides antibody negative Leptospira antibody pending Blood cultures x2 pending - Physical Exam General Appearance: other (Unresponsive) EENT: ET Tube Respiratory: coarse breath sounds Cardiac/Chest: regular rate, rhythm Extremities: inflammation (No significant interval change in ischemic changes to left toes) Abdomen: non-tender, No distended Skin: other (Diffuse ecchymoses) - Line/s RUE PICC Lines: No drainage, No erythema ICD10 Worksheet Patient Problems: Problems Problem Status Onset Pneumonia Acute Severe sepsis Acute Hyperplasia of prostate Active Atrial fibrillation or flutter Acute
[2016-06-18] MEDS: methylPREDNISolone SOD SUCC 40 MG/ML VIAL IVP SCH (20:37)
[2016-06-18] MEDS ORDERED: methylPREDNISolone SOD SUCC 125 MG/2 ML VIAL IVP SCH (21:00)
[2016-06-19] MEDS: METOPROLOL TARTRATE 5 MG/5 ML INJ IVP SCH ×2 (00:26→05:16)
[2016-06-19] MEDS: IPRATROPIUM HFA INHALER IH SCH ×3 (01:47→09:06)
[2016-06-19] MEDS: ALBUTEROL 60 PUFFS/8 GM MDI IH SCH ×5 (01:47→16:11)
[2016-06-19] MEDS: INSULIN REGULAR HUMAN 100 UNIT/ML SC SCH ×3 (01:59→07:34)
[2016-06-19] MEDS: PETROLAT,WHT/MIN OIL/SOD CHL 3.5 GM OPHT.OINT EACHEYE PRN ×3 (02:11→08:06)
[2016-06-19] MEDS: ORAL BALANCE GEL TUBE PO PRN ×3 (02:13→08:06)
[2016-06-19 05:00] LABS: PROTIME(PATIENT) 21.9 SEC (12.0-15.0)
[2016-06-19 05:01] LABS: APTT 22.8 SEC (23.0-38.0)
[2016-06-19 05:03] LABS: ABSOLUTE NRBC COUNT 0.84 10^3/uL (0-0.01); ADD DIFF? YES; ATYPICAL LYMPHOCYTE FLAG 0 (0-99); FRAGMENT RBC FLAG 40 (0-99); HEMATOCRIT 28.5 % (40.0-51.0); HEMOGLOBIN 8.7 g/dL (13.7-17.5); LEFT SHIFT FLG 30 (0-99); LIPEMIA HEMOLYSIS FLAG 80 (0-99); MEAN CELL HEMOGLOBIN 30.9 pg (27.9-34.1); MEAN CELL HEMOGLOBIN CONCENTR. 30.5 g/dL (32.4-36.7); MEAN CELL VOLUME 101.1 fL (81.5-99.8); PLATELET CLUMPS FLAG 40 (0-99); PLATELET COUNT 69 10^3/uL (150-400); RED BLOOD CELL COUNT 2.82 10^6/uL (4.40-6.38); RED CELL DISTRIBUTION WIDTH 19.5 % (11.5-15.2)
[2016-06-19 05:08] LABS: PLATELET COUNT 69 10^3/uL (150-400)
[2016-06-19 05:10] LABS: NRBC-AUTO% 1.7 % (0.0-0.2)
[2016-06-19 05:12] LABS: ADD MORPH? NO; ADD SCAN? NO
[2016-06-19] MEDS: MEROPENEM 1 GM in NS 100 ML IV SCH (05:15)
[2016-06-19] MEDS: LEVOTHYROXINE 50 MCG TAB TUBE SCH (05:16)
[2016-06-19 05:21] VITALS: TEMP 98.4
[2016-06-19 05:33] LABS: ALANINE AMINOTRANSFERASE 109 IU/L (21-72); ALBUMIN 2.7 g/dL (3.5-5.0); ALKALINE PHOSPHATASE 90 IU/L (38-126); ANION GAP 12 mEq/L (8-16); ASPARTATE AMINOTRANSFERASE 56 IU/L (17-59); BILIRUBIN,TOTAL 4.8 mg/dL (0.1-1.4); CARBON DIOXIDE 27 mEq/l (22-31); CHLORIDE 113 mEq/L (97-110); CREATININE 2.1 mg/dL (0.7-1.3); GLOMERULAR FILTRATION RATE 30; GLUCOSE 146 mg/dL (70-100); POTASSIUM 5.5 mEq/L (3.5-5.2); SODIUM 152 mEq/L (134-144); TOTAL PROTEIN 5.4 g/dL (6.3-8.2)
[2016-06-19 06:00] LABS: BILIRUBIN-CONJUGATED 3.8 mg/dL (0.0-0.5)
[2016-06-19 06:24] LABS: POLYCHROMASIA 2+; SCHISTOCYTES 2+
[2016-06-19 06:25] LABS: MACROCYTES 1+; MICROCYTES 1+
[2016-06-19 06:26] LABS: PLATELET ESTIMATE DECREASED (ADEQ)
[2016-06-19 06:40] LABS: FIBRINOGEN 84 mg/dL (214-456)
[2016-06-19] MEDS: methylPREDNISolone SOD SUCC 40 MG/ML VIAL IVP SCH (07:54)
[2016-06-19] MEDS: DOXYCYCLINE INJ 100 MG in NS 250 ML IV SCH (09:05)
[2016-06-19] MEDS: LANSOPRAZOLE SUSP 30MG/10ML UDSYR (Adult) TUBE SCH (09:06)
[2016-06-19] MEDS: MULTIVITAMINS 5 ML UDL TUBE SCH (09:06)
[2016-06-19] MEDS: SENNOSIDES 17.6 MG/10 ML UDL TUBE SCH (09:06)
--- NOTE | 2016-06-19 10:54 | PDINTPN ---
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 CT ruled out PE, but showed significant bilateral infiltrates suggestive of ILD. Rx'd with meropenem, doxy, and vanco; and appeared stable AM 06/09/16 on SM. He deteriorated overnight and required intubation early AM 06/10. His INR was found to be 12.8 and was given vitamin K and FFP. * Respiratory failure with hypoxia- 2/2 PNA which may have been progressing on current abx (and failed outpatient Levaquin). DDx of acute decompensation includes PNA, COPD, CHF, DAH. BNP >13,000 and CXR were compatible with significant cardiac history. Improved minimally with lasix and chest tube 06/13, now on 40%. Having tachypnea with high airway pressures. * PTX- found on chest CT 06/13 with substantial subcutaneous air. Likely related to positive pressure (plateau has been <30-35) in setting of COPD superimposed on PNA. No air leak today. * COPD- 2/2 above. Continue solumedrol and change albuterol to duoneb since can' t get Spiriva on vent. Antibiotics stopped. * ILD?- CT shows some patches of what appear to be chronic interstitial changes. Not typical for IPF, with sparing of left subpleural/basilar lung. ? episodes of aspiration. Family reports slow decline over same period. Not stable for biopsy at this time and short term rx would be steroids regardless. Re-eval after recovery * afib- currently 100% paced * chf-echo 06/10/16 shows EF 40-45% and BNP was 13,900 on 06/10 hence trial of diuresis with only modest effect. * lockett- Rn attempted several times including Coude. Placed by urology 06/10/16. Adequate UOP * DIC Likely 2/2 infection, but evaluation for infectious source is negative. Seems late compared to admit date, but may have been brewing prior to admission. Have discussed with hematology in detail. No evidence of malignancy in abdomen. Consumptive component bit worse today, with lower fibrinogen and higher INR. Some BRBPR yesterday. Left toe ischemia, ? embolic or thrombotic, although no other signs of thrombosis elsewhere. Hematology following. * Renal: Cr and BUN up today. UOP down. Na remains high despite H2O TF flushes. * Coma: Not waking up despite being off sedation for 4 days. CTH negative, but could have ischemia/early infarct. Could also be due to critical illness. Hypernatremia improved, less likely to be playing a role. * Hyperglycemia: Likely due to steroids, TF, and acute illness. * Nutrition: Has been on TF, high residuals today, so TF held. Plan: Continue vent support. Continue to hold TF. Decrease steroids, increase insulin Family wishes to D/C support later today. AICD disabled. WIll change to comfort care and extubate when they are ready. 06/19/16 11:00 Subjective: Intubated, unresponsive. Objective: Vital Signs Temp Pulse Resp BP Pulse Ox 36.9 C 76 38 H 104/54 L 98 06/19/16 04:00 06/19/16 08:00 06/19/16 08:00 06/19/16 08:00 06/19/16 08:00 Laboratory Results 06/19/16 04:40 06/19/16 04:40 06/18/16 06/19/16 06/20/16 05:59 05:59 05:59 Intake Total 4368 2742 Output Total 1800 419 Balance 2568 2323 PT 21.9 SEC (12.0-15.0) H 06/19/16 04:40 INR 1.90 (0.83-1.16) H 06/19/16 04:40 CXR: Increased SQ air, otherwise stable. Image reviewed. Physical Exam - Physical Exam General Appearance: no apparent distress, No alert EENT: normal ENT inspection Neck: normal inspection Respiratory: crackles Cardiac/Chest: regular rate, rhythm Abdomen: non-tender, soft Skin: normal color, warm/dry Extremities: normal inspection Neuro/Psych: No alert ICD10 Worksheet Patient Problems: Problems Problem Status Onset Pneumonia Acute Severe sepsis Acute Hyperplasia of prostate Active Atrial fibrillation or flutter Acute
[2016-06-19] MEDS: LORazepam 2 MG/ML INJ IVP PRN ×2 (14:45→16:16)
[2016-06-19 15:54] VITALS: BP 108/62; PULSE 85; RESP 37; O2SAT 92
--- NOTE | 2016-06-19 18:32 | HOSPPROG ---
Hospitalist Progress Note Assessment/Plan: # pulmonary - intubated, stable on vent, though no significant improvement - persistent infiltrates, treating for infection with merrem, doxy; also consider other etiologies - R sided ptx with subQ air - s/p CT by gen surg - underlying COPD, possible underlying ILD * community-acquired pneumonia versus other * failed outpatient Levaquin * serology of all been negative # DIC/hematologic abnormalities - he has a blue/cold L toe concerning for embolic disease - appreciate heme - no blood products today unless clinical bleeding; will hold on AC for now # leukocytosis: Worsening; concerning though may be due to steroids # ventricular ectopy - mild elevation in trop - mildly abn echo - will not involve cards at this point as therapeutic options quite limited by DIC # a-fib - paced # elevated LFTs - more elevated today, concerning overall * nonischemic cardiomyopathy with EF of 40%, status post Bi V ICD * hypertension * hyperlipidemia * patient is critically ill with borderline functional status to begin with * difficult [place] placement * required Urology to place * poor overall prognosis *care with be withdrawn today Subjective: no changes Objective: Vital Signs Temp Pulse Resp BP Pulse Ox 36.9 C 85 37 H 108/62 92 06/19/16 04:00 06/19/16 14:00 06/19/16 14:00 06/19/16 14:00 06/19/16 14:00 Laboratory Results 06/19/16 04:40 06/19/16 04:40 06/18/16 06/19/16 06/20/16 05:59 05:59 05:59 Intake Total 4368 2742 Output Total 1800 419 Balance 2568 2323 PT 21.9 SEC (12.0-15.0) H 06/19/16 04:40 INR 1.90 (0.83-1.16) H 06/19/16 04:40 - Physical Exam Constitutional: no apparent distress Cardiovascular: regular rate and rhythym, no murmur, rub, or gallop, edema ( anasarca) Respiratory: no respiratory distress, no rales or rhonchi, other (intubated) Gastrointestinal: normoactive bowel sounds, soft, non-tender abdomen, no palpable masses Genitourinary: lockett in urethra Skin: warm Neurologic: other (unrespnisive) ICD10 Worksheet Patient Problems: Problems Problem Status Onset Pneumonia Acute Severe sepsis Acute Hyperplasia of prostate Active Atrial fibrillation or flutter Acute
--- NOTE | 2016-06-20 12:20 | GDS ---
DATE OF EXPIRATION: 06/19/2016 FINAL DIAGNOSES: 1. Bilateral pneumonia of uncertain etiology. 2. Sepsis. 3. Hypoxic respiratory failure. 4. Probable anoxic brain injury. 5. Disseminated intravascular coagulation. 6. Atrial fibrillation. 7. Nonischemic cardiomyopathy. HISTORY: This was an 85-year-old male who presented with several weeks of what sounds like an upper respiratory tract infection as well as shortness of breath. HOSPITAL COURSE: The patient was admitted. He had diffuse bilateral infiltrates. He was started o n broad-spectrum antibiotics. He acutely worsened over the next 24-48 hours and then required intub ation. He then went into DIC which never really resolved. Infectious Disease was consulted, and mu ltiple studies were sent out, but none have come back positive in terms of an infectious etiology. He continued to require high ventilatory support. Off sedation, he did not wake up. Multiple discu ssions were had with the family, and they decided to withdraw care. /[id number]/MODL
== END 2016-06-19 16:52 | disposition expired | DRG 870 ==
LOC: EDUNIT# → OBSVTOIN 14:41 → F2N 17:27
PROVIDERS: ADMIT Student in an Organized Health Care Education/Training Program; ATTEND Internal Medicine
PROC: 30233M1 Transfusion of Nonautologous Plasma Cryoprecipitate into Peripheral Vein, Percutaneous Approach (ICD-10-PCS; 2015-06-10)
PROC: 30233R1 Transfusion of Nonautologous Platelets into Peripheral Vein, Percutaneous Approach (ICD-10-PCS; 2015-06-10)
PROC: 30233K1 Transfusion of Nonautologous Frozen Plasma into Peripheral Vein, Percutaneous Approach (ICD-10-PCS; 2015-06-10)
PROC: 0BH17EZ Insertion of Endotracheal Airway into Trachea, Via Natural or Artificial Opening (ICD-10-PCS; principal; 2016-06-10)
PROC: 5A1955Z Respiratory Ventilation, Greater than 96 Consecutive Hours (ICD-10-PCS; principal; 2016-06-10)
PROC: 02HV33Z Insertion of Infusion Device into Superior Vena Cava, Percutaneous Approach (ICD-10-PCS; 2016-06-10)
PROC: 0W9930Z Drainage of Right Pleural Cavity with Drainage Device, Percutaneous Approach (ICD-10-PCS; 2016-06-13)
DX: A41.9 Sepsis, unspecified organism (principal); J18.9 Pneumonia, unspecified organism; J44.1 Chronic obstructive pulmonary disease with (acute) exacerbation; J96.01 Acute respiratory failure with hypoxia; N17.9 Acute kidney failure, unspecified; D65 Disseminated intravascular coagulation [defibrination syndrome]; J93.0 Spontaneous tension pneumothorax; I99.9 Unspecified disorder of circulatory system; D69.6 Thrombocytopenia, unspecified; I48.2 Chronic atrial fibrillation; I42.9 Cardiomyopathy, unspecified; I11.0 Hypertensive heart disease with heart failure; I50.9 Heart failure, unspecified; N35.9 Urethral stricture, unspecified; R33.9 Retention of urine, unspecified; E78.5 Hyperlipidemia, unspecified; Z99.81 Dependence on supplemental oxygen; Z95.810 Presence of automatic (implantable) cardiac defibrillator
CPT/HCPCS: 82947-QW; 83010-90; 83520-90; 86255-90; 86635-90; 86638-90; 86668-90; 86720-90; 87449-90; 96365; C1751; J0330; J0692; J1170; J1200; J1815; J2185; J2704; J3010; J3370; J3430; P9012; P9017; P9035; Q9967